=== PATIENT | male | born 1950 | race Two or more races ===

== ENCOUNTER 2024-08-20 09:31 | Inpatient (IN) | payer MEDICAID, MEDICARE, OTHER ==
[~2024-08-20] VITALS: Ht 185.4 cm; Wt 97.3 kg
[2024-08-20] VITALS (23 sets, daily range): BP systolic 87–134; BP diastolic 46–77; PULSE 68–89; RESP 13–27; TEMP 97.8–98.6; O2SAT 95–100
--- NOTE | 2024-08-20 10:01 | ED.PDOC ---
History of Present Illness HPI Comments 66-year-old male brought in by ambulance prior medical history of anemia in the chief complaint of generally weakness. EMS report that the patient has weakness for one week with shortness a breath, and whenever the patient walks he feels fatigued. On scene the patient had her blood sugar of 120 with a sat of 95% room air. Denies chills, fever, N/V/D, CP. No other associated symptoms, modifiers, recent injuries or sick contacts present at this time. Time Seen by MD: 09:35 Reviewed Notes: Nurses Notes, Tax Services Manager Notes, Medications, Allergies Allergies: Coded Allergies: NO KNOWN ALLERGIES (Unverified , 08/20/24) Information Source: Patient, Emergency Med Personnel Mode of Arrival: EMS Severity: Moderate Timing: Days Duration: Since onset, Days Prehospital treatment: None Past Medical History PAST MEDICAL HISTORY: Anemia Surgical History: Denies all surgeries Family History Family History: Reviewed,noncontributory to illness, Unknown Social History Smoker: Non-Smoker Alcohol: Denies ETOH Use Drugs: Denies Drug Use Lives In: Home Constitutional: reports: fatigue, weakness; denies: chills, diaphoresis, fever, malaise, sweats, others EENTM: denies: blurred vision, double vision, ear bleeding, ear discharge, ear drainage, ear pain, ear ringing, eye pain, eye redness, hearing loss, mouth pain, mouth swelling, nasal discharge, nose bleeding, nose congestion, nose pain, photophobia, tearing, throat pain, throat swelling, voice changes, others Respiratory: denies: cough, hemoptysis, orthopnea, SOB at rest, shortness of breath, SOB with excertion, stridor, wheezing, others Cardiovascular: denies: chest pain, dizzy spells, diaphoresis, Dyspnea on exertion, edema, irregular heart beat, left arm pain, lightheadedness, palpitations, PND, syncope, others Gastrointestinal: denies: abdomen distended, abdominal pain, blood streaked bowels, constipated, diarrhea, dysphagia, difficulty swallowing, hematemesis, melena, nausea, poor appetite, poor fluid intake, rectal bleeding, rectal pain, vomiting, others Genitourinary: denies: burning, dysuria, flank pain, frequency, hematuria, incontinence, penile discharge, penile sore, pain, testicle pain, testicle s welling, urgency, others Neurological: denies: dizziness, fainting, headache, left sided numbness, left sided weakness, numbness, paresthesia, pre-existing deficit, right sided numbness, right sided weakness, seizure, speech problems, tingling, tremors, weakness, others Musculoskeletal: denies: back pain, gout, joint pain, joint swelling, muscle pain, muscle stiffness, neck pain, others Integumetry: denies: bruises, change in color, change in hair/nails, dryness, laceration, lesions, lumps, rash, wounds, others Allergic/Immunocompromised: denies: Difficulty Healing, Frequent Infections, Hives, Itching, others Hematologic/Lymphatic: denies: anemia, blood clots, easy bleeding, easy bruising, swollen glands, others Endocrine: denies: excessive hunger, excessive sweating, excessive thirst, excessive urination, flushing, intolerance to cold, intolerance to heat, unexplained weight gain, unexplained weight loss, others Psychiatric: denies: anxiety, bipolar disorder, depression, hopeless, panic disorder, schizophrenia, sleepless, suicidal, others All Other Systems: Reviewed and Negative Physical Exam General Appearance: Moderate Distress, Normal HEENT: Normal ENT Inspection, Pharynx Normal, TMs Normal Neck: Full Range of Motion, Non-Tender, Normal, Normal Inspection Respiratory: Chest Non-Tender, Lungs Clear, No Accessory Muscle Use, No Respiratory Distress, Normal Breath Sounds Cardiovascular: No Edema, No JVD, No Murmur, No Gallop, Normal Peripheral Pulses, Regular Rate/Rhythm Breast Exam: Deferred Gastrointestinal: No Organomegaly, Non Tender, No Pulsatile Mass, Normal Bowel Sounds, Soft Genitalia: Deferred Pelvic: Deferred Rectal: Deferred Extremities: No calf tenderness, Normal capillary refill, Normal inspection, Normal range of motion, Non-tender, No pedal edema Musculoskeletal : Apperance: Normal Neurologic: Alert, rigging man II-XII nml as Tested, No Motor Deficits, Normal Affect, Normal Mood, No Sensory Deficits Cerebellar Function: NOT DONE Reflexes: NOT DONE Skin: Dry, Pallor, Warm Peripheral Pulses: 3+ Radial (R), 3+ Radial (L) Lymphatic: No Adenopathy Was a procedure done? Was a procedure done?: No EKG EKG : Pulse Rate (adult): 68 Brogan: Normal Cardiac Rhythm: NSR Block: None Hypertrophy: None ST: Normal Differential Dx Considerations may include: Anemia Electrolyte imbalance X-Ray, Labs, Meds, VS Vital Signs Date Time Temp Pulse Resp B/P (MAP) Pulse Ox O2 Delivery O2 Flow Rate FiO2 08/20/24 11:00 72 20 100 Room Air* 0 21 08/20/24 11:00 98.0 74 16 91/41 (58) 100 98.0 08/20/24 10:02 68 08/20/24 09:50 68 08/20/24 09:40 97.9 68 16 113/75 (88) 95 97.9 Lab Test 08/20/24 10:05 Range/Units White Blood Count 15.5 H 4.4-10.8 10^3/uL Red Blood Count 1.91 L 4.5-5.90 10^6/uL Hemoglobin 5.6 *L 13.5-17.5 g/dL Hematocrit 17.5 L 41.0-53.0 % Mean Corpuscular Volume 91.6 80.0-100.0 fL Mean Corpuscular Hemoglobin 29.3 28.0-32.0 pg Mean Corpuscular Hemoglobin Concent 32.0 32.0-36.0 g/dL Red Cell Distribution Width 22.0 H 11.8-14.3 % Platelet Count 366 140-450 10^3/uL Mean Platelet Volume 8.1 6.9-10.8 fL Neutrophils (%) (Auto) 37.0-80.0 % Lymphocytes (%) (Auto) 10.0-50.0 % Monocytes (%) (Auto) 0.0-12.0 % Basophils (%) (Auto) 0.0-2.0 % Neutrophils # (Auto) 1.6-8.6 10 ^3/uL Lymphocytes # (Auto) 0.4-5.4 10 ^3/uL Monocytes # (Auto) 0-1.3 10 ^3/uL Differential Total Cells Counted 100.0 100 Neutrophils % (Manual) 77 37.0-80.0 Band Neutrophils % (Manual) 5 Lymphocytes % (Manual) 10 10.0-50.0 Monocytes % (Manual) 1 0-12 Eosinophils % (Manual) 5 0-7 Basophils % (Manual) 0 0.0-2.0 Metamyelocytes % (manual) 1 Myelocytes % (Manual) 1 Promyelocytes % (Manual) 0 Blast Cells % (Manual) 0 Reactive Lymphocytes 0 Platelet Estimate Adequate Large Platelets Few Anisocytosis (manual) Slight Microcytosis Slight Ovalocytes Few Sodium Level 138 136-145 mmol/L Potassium Level 4.6 3.5-5.1 mmol/L Chloride Level 105 98-107 mmol/L Carbon Dioxide Level 27 20-31 mmol/L Anion Gap 6 5-15 Blood Urea Nitrogen 28 H 9-23 mg/dL Creatinine 1.96 H 0.700-1.30 mg/dL Glomerular Filtration Rate Calc 35 >90 mL/min BUN/Creatinine Ratio 14.3 10.0-20.0 Serum Glucose 104 74-106 mg/dL Calcium Level 8.5 L 8.7-10.4 mg/dL Troponin I High Sensitivity 15 </=54 ng/L Patient alert. Vitals stable. He is pale in color. Answering questions. Moving all extremities. Hemoglobin is low. WBC slightly elevated. Possible pneumonitis. Possible dehydration. Cardiac marker within normal limits. Establish intravenous access. Was given blood transfusion. Explained to the patient. Continue monitoring. Denies GI bleed. GI consultation. [place] [id number] Ph: [phone] DIAGNOSTIC IMAGING Diagnostic Imaging Report : [id number] Signed PATIENT: KESHAV GALDAMEZ ACCT: [id number] UNIT: [id number] : 1950 LOC: ER ROOM / BED: / AGE / SEX: 74 / M ADM STATUS: REG ER SERVICE [id number] ORDERING PHYSICIAN: CATIE RM MD PROCEDURE(s): CXRP - CHEST PORTABLE REASON: sob ORDER NUMBER(s): [id number], ACCESSION NUMBER(s): [id number] XY CHEST PORTABLE, HISTORY: sob COMPARISON: None None TECHNICAL DATA: 1 view of the chest was obtained. FINDINGS: Lines and tubes: None Cardiomediastinal silhouette: enlarged Pulmonary vasculature: prominent Lung expansion: normal Lung airspace: normal Lung interstitium: prominent Pleura: normal Pneumothorax: no Bones: Unremarkable Other: no IMPRESSION: Cardiomegaly with pulmonary vascular congestion. ATED BY: DAVID WOOTEN MD DICTATED DATE/TIME: 08/20/24 1036 SIGNED BY: DAVID WOOTEN MD SIGNED DATE/TIME: 08/20/24 1036 CC: Time of 1ST Reevaluation: 10:05 Reevaluation 1ST: Unchanged Patient Education/Counseling: Diagnosis, Treatment, Prognosis Family Education/Counseling: No Family Present Departure 1 Departure Time of Disposition: 11:05 Impression: Primary Impression: Severe anemia Additional Impression: GI bleed Qualified Codes: K92.2 - Gastrointestinal hemorrhage, unspecified Disposition: ADMITTED INPATIENT Admit to: Med Surg Condition: Guarded Critical Care Note Critical Care Time?: Yes (90 min-critical care time only) Critical care comment: Severe anemia requiring blood transfusion Stability Stability form required: No Heart Score Heart Score: Heart Score Response (Comments) Value History N/A 0 EKG N/A 0 Age N/A 0 Risk Factors N/A 0 Troponin N/A 0 Total 0 I personally scribed for CATIE RM MD ([email or web address]) on 08/20/24 at 10:01. Electronically submitted by Nakul Ortiz ([facility]). I personally scribed for CATIE RM MD ([email or web address]) on 08/20/24 at 10:02. Electronically submitted by Nakul Ortiz ([facility]). I personally scribed for CATIE RM MD ([email or web address]) on 08/20/24 at 11:37. Electronically submitted by Nakul Ortiz ([email or web address]). CATIE RM MD Aug 20, 2024 10:01
[2024-08-20 10:35] LABS: Hematocrit 17.5 % (41.0-53.0); Mean Corpuscular Hemoglobin 29.3 pg (28.0-32.0); Mean Corpuscular Volume 91.6 fL (80.0-100.0); Platelet Count (auto) 366 10^3/uL (140-450); Red Blood Cells 1.91 10^6/uL (4.5-5.90); White Blood Cell 15.5 10^3/uL (4.4-10.8)
--- NOTE | 2024-08-20 10:38 | DVH ---
XY CHEST PORTABLE, HISTORY: sob COMPARISON: None None TECHNICAL DATA: 1 view of the chest was obtained. FINDINGS: Lines and tubes: None Cardiomediastinal silhouette: enlarged Pulmonary vasculature: prominent Lung expansion: normal Lung airspace: normal Lung interstitium: prominent Pleura: normal Pneumothorax: no Bones: Unremarkable Other: no IMPRESSION: Cardiomegaly with pulmonary vascular congestion.
[2024-08-20 10:39] LABS: Chloride 105 mmol/L (98-107); Potassium 4.6 mmol/L (3.5-5.1); Sodium 138 mmol/L (136-145)
[2024-08-20 10:40] LABS: Anion Gap 6 (5-15); Carbon Dioxide 27 mmol/L (20-31)
[2024-08-20 10:41] LABS: Calcium 8.5 mg/dL (8.7-10.4)
[2024-08-20 10:45] LABS: BUN/Creatinine Ratio 14.3 (10.0-20.0); Glucose 104 mg/dL (74-106)
[2024-08-20 10:46] LABS: Hemoglobin 5.6 g/dL (13.5-17.5)
[2024-08-20 10:47] LABS: Basophils % (manual) 0 (0.0-2.0); Blast Cells 0; Blood Urea Nitrogen 28 mg/dL (9-23); Promyelocytes % 0; Reactive Lymphocytes 0
[2024-08-20 11:08] LABS: Band Neutrophils % (manual) 5; Eosinophils % (manual) 5 (0-7); Lymphocytes % (manual) 10 (10.0-50.0); Metamyelocytes % 1; Monocytes % (manual) 1 (0-12); Myelocytes % 1
[2024-08-20 11:09] LABS: Anisocytosis Slight; Ovalocytes FEW
[2024-08-20 11:10] LABS: Large Platelets FEW; Platelet Estimate Adequate
--- NOTE | 2024-08-20 11:57 | ECG ---
[facility] Test Date: 2024-08-20 Test Time: 09:50:09 Pat Name: RENAE GALDAMEZ Department: ED Room: [facility] Gender: M Chief Ophthalmic Technician: LEONARDO : 1950 Requested By: CATIE RM Order Number: [id number] Reading MD: Prateek Torres Measurements Intervals [place] Rate: 68 P: 51 VA: 198 QRS: 36 QRSD: 102 T: 103 QT: 503 QTc: 536 Interpretive Statements Sinus rhythm Nonspecific T abnormalities, lateral leads Prolonged QT interval Electronically Signed On 08-22-2024 14:51:32 PDT by Prateek Torres Please click the below link to view image of tracing.
[2024-08-20] MEDS ORDERED: NITROGLYCERIN 0.4 MG SL TAB SL PRN (13:30)
[2024-08-20] MEDS ORDERED: MORPHINE SULFATE INJ 2 MG/ml SYRG IV PRN (13:30)
[2024-08-20] MEDS ORDERED: ONDANSETRON HCL 4 MG/2 ML VIAL IV PRN (13:30)
--- NOTE | 2024-08-20 14:13 | DVHHP2 ---
History of Present Illness Reason for Visit: Generalized weakness History of Present Illness Unfried, Josue Garcia is a 74-year-old male with past medical history of hypertension, BPH, chronic kidney disease, and hard of hearing who came in for generalized weakness. Patient states he went to the [place] and had labs completed a few weeks ago. He received a phone call a couple weeks ago and was told his hemoglobin was low and to go to the hospital. He states he was not feeling bad at that time so he did not go. He did not want to drive all the way to the [place] when he was feeling fine. Then he states this last week he started feeling weaker, and getting short of breath prompting him to come to the hospital. Cardiovascular: HTN Renal/: Chronic renal insuff, Benign prostatic enlarg. Past Surgical History: Other ( Bowel surgery with colostomy, then reversal, bilateral mastectomy) Smoke: Quit (1 month ago) ALCOHOL: rare Drugs: None Lives: with Family Domestic Violence: Neg Review of Systems Constitutional: Yes: Weakness, Malaise; No: Fever, Chills, Sweats, Other Eyes: No: Pain, Vision change, Conjunctivae inflammation, Eyelid inflammation, Other, Redness ENT: No: Ear pain, Ear discharge, Nose pain, Nose discharge, Nose congestion, Mouth pain, Mouth swelling, Throat pain, Throat swelling, Other Respiratory: Shortness of breath, SOB with excertion; No: Cough, Dry, Wheezing, Hemoptysis, Pleuritic Pain, Sputum, Wheezing, Other Cardiovascular: No: Chest Pain, Palpitations, Orthopnea, Paroxysmal Noc. Dyspnea, Edema, Lt Headedness, Other Gastrointestinal: No: Nausea, Vomiting, Abdominal Pain, Diarrhea, Constipation, Melena, Hematochezia, Other Genitourinary: No Dysuria, No Frequency, No Incontinence, No Hematuria, No Retention, No Other Musculoskeletal: No: other, neck pain, shoulder pain, arm pain, back pain, hand pain, leg pain, foot pain Skin: No: Rash, Lesions, Jaundice, Bruising, Other Neurological: No: Weakness, Numbness, Incoordination, Change in speech, Confusion, Seizures, Other Allergies: Coded Allergies: NO KNOWN ALLERGIES (Unverified , 08/20/24) Exam Vital Signs Vital Signs Date Time Temp Pulse Resp B/P (MAP) Pulse Ox O2 Delivery O2 Flow Rate FiO2 08/20/24 12:23 97.9 70 14 87/46 97.9 08/20/24 11:00 100 Room Air* 0 21 General Appearance: Alert, Oriented X3, Cooperative, mild distress, Other (weakness) HEENT: Atraumatic, PERRLA, Other (dry mucous membr) Respiratory: Clear to auscultation, Normal air movement, Other (short of breath at rest and with activity) Cardiovascular: Regular rate, Normal S1, Normal S2 Abdominal: Normal bowel sounds, Soft, No tenderness, No hepatospenomegaly Extremities: No clubbing, No cyanosis, No edema, Normal pulses Skin: No rashes, No breakdown, No significant lesion Neuro: Normal gait, Normal speech Psych/Mental Status: Mental status NL, Mood NL Labs/Xrays Labs Test 08/20/24 10:05 Range/Units White Blood Count 15.5 H 4.4-10.8 10^3/uL Red Blood Count 1.91 L 4.5-5.90 10^6/uL Hemoglobin 5.6 *L 13.5-17.5 g/dL Hematocrit 17.5 L 41.0-53.0 % Mean Corpuscular Volume 91.6 80.0-100.0 fL Mean Corpuscular Hemoglobin 29.3 28.0-32.0 pg Mean Corpuscular Hemoglobin Concent 32.0 32.0-36.0 g/dL Red Cell Distribution Width 22.0 H 11.8-14.3 % Platelet Count 366 140-450 10^3/uL Mean Platelet Volume 8.1 6.9-10.8 fL Neutrophils (%) (Auto) 37.0-80.0 % Lymphocytes (%) (Auto) 10.0-50.0 % Monocytes (%) (Auto) 0.0-12.0 % Basophils (%) (Auto) 0.0-2.0 % Neutrophils # (Auto) 1.6-8.6 10 ^3/uL Lymphocytes # (Auto) 0.4-5.4 10 ^3/uL Monocytes # (Auto) 0-1.3 10 ^3/uL Differential Total Cells Counted 100.0 100 Neutrophils % (Manual) 77 37.0-80.0 Band Neutrophils % (Manual) 5 Lymphocytes % (Manual) 10 10.0-50.0 Monocytes % (Manual) 1 0-12 Eosinophils % (Manual) 5 0-7 Basophils % (Manual) 0 0.0-2.0 Metamyelocytes % (manual) 1 Myelocytes % (Manual) 1 Promyelocytes % (Manual) 0 Blast Cells % (Manual) 0 Reactive Lymphocytes 0 Platelet Estimate Adequate Large Platelets Few Anisocytosis (manual) Slight Microcytosis Slight Ovalocytes Few Sodium Level 138 136-145 mmol/L Potassium Level 4.6 3.5-5.1 mmol/L Chloride Level 105 98-107 mmol/L Carbon Dioxide Level 27 20-31 mmol/L Anion Gap 6 5-15 Blood Urea Nitrogen 28 H 9-23 mg/dL Creatinine 1.96 H 0.700-1.30 mg/dL Glomerular Filtration Rate Calc 35 >90 mL/min BUN/Creatinine Ratio 14.3 10.0-20.0 Serum Glucose 104 74-106 mg/dL Calcium Level 8.5 L 8.7-10.4 mg/dL Troponin I High Sensitivity 15 </=54 ng/L XY CHEST PORTABLE, FINDINGS: Lines and tubes: None Cardiomediastinal silhouette: enlarged Pulmonary vasculature: prominent Lung expansion: normal Lung airspace: normal Lung interstitium: prominent Pleura: normal Pneumothorax: no Bones: Unremarkable Other: no IMPRESSION: Cardiomegaly with pulmonary vascular congestion. Assessment/Plan Assessment/Plan Assessment: Severe anemia, Possible GI bleed, Hypotension, Chronic renal insufficiency, Plan: Admit to Med-Surg, GI consult, Send stool for occult blood, Transfuse 2 units PRBC, Manage/Monitor H&H closely, IV Lasix x 1 after first unit of PRBC, Breathing treatments as needed, Iron panel in am, Home BP medications held due to hypotension, Plan discussed with: Patient My Orders Orders - RAFAL LEARY Procedure Category Date Status Time Admit ADMIT 08/20/24 Transmitted 13:29 Code Status CODE 08/20/24 Transmitted 13:29 Hydrocodone-Acet PHA 08/20/24 Transmitted 5/325mg Tab ([place] 13:30 Ondansetron Hcl PHA 08/20/24 Transmitted (Zofran) 13:30 Complete Blood Count LAB 08/21/24 Verified 04:00 Comprehensive LAB 08/21/24 Verified Metabolic Panel 04:00 Condition: Serious SRAVANTHI 08/20/24 Transmitted 13:29 Acetaminophen Tablet PHA 08/20/24 Transmitted (Tylenol Tablet) 13:30 Clear Liq Diet DIET 08/20/24 Transmitted Lunch Nitroglycerin PHA 08/20/24 Transmitted Sublingual (Ntrostat 13:30 Morphine Sulfate PHA 08/20/24 Transmitted Injection 13:30 Stat Ekg For Chest SRAVANTHI 08/20/24 Transmitted Pain 13:29 Notify Md Of Changes [facility] 08/20/24 Transmitted From Base 13:29 Beck Tender For [facility] 08/20/24 Transmitted 24 Hours 13:29 Emergency Dysrhythmia [facility] 08/20/24 Transmitted Protocol 13:29 Rhythm Strips Once [facility] 08/20/24 Transmitted Every Shift 13:29 Oxygen By Nasal RT 08/20/24 Transmitted Cannula 13:29 Stool Occult Blood LAB 08/20/24 Transmitted 13:29 * Gi Dvh Package Drier CONS 08/20/24 Transmitted 13:29 Date of Service: Aug 20, 2024 Billing Provider: RAFAL LEARY Common Visit Codes: [id number] INP/OBS CARE (HIGH) RAFAL LEARY Aug 20, 2024 14:13
[2024-08-20] MEDS: HYDROcodone-ACET 5/325MG TAB PO PRN (15:30)
[2024-08-20] MEDS: FUROSEMIDE 40 MG/4 ML VIAL IV ONE (15:55)
[2024-08-20 17:08] LABS: Urine Bacteria None Seen /hpf (None Seen)
[2024-08-20 17:17] LABS: Urine Blood 2+ /uL (Negative); Urine Clarity Ex.Turbid (Clear); Urine Color Dark-Brown (Yellow); Urine Mucus FEW (None Seen); Urine Protein, UAD 3+ (Negative); Urine Specific Gravity 1.014 (1.001-1.035); Urine Squamous Epithelial Cell None Seen /hpf (<5); Urine Urobilinogen Normal (Negative); Urine WBC 3653 /HPF (0-3); Urine WBC Clumps PRESENT /hpf (None Seen)
[2024-08-20] MEDS: cefTRIAXone 1GM/50ML D5W 50 ML IV ONE (18:28)
[2024-08-20] MEDS: IPRATROPIUM BROM 0.5 MG/2.5ML INH SOL NEB PRN (19:45)
[2024-08-20] MEDS: ALBUTEROL SULF 2.5 MG/0.5ML(0.5%) NEB SOLN NEB PRN (19:45)
[2024-08-20 22:22] LABS: Hematocrit 26.2 % (41.0-53.0); Hemoglobin 8.6 g/dL (13.5-17.5)
[2024-08-20] MEDS ORDERED: METO25TA5 PO (23:14)
[2024-08-20] MEDS ORDERED: AML5T PO (23:14)
[2024-08-21] VITALS (16 sets, daily range): BP systolic 137–154; BP diastolic 86–97; PULSE 63–89; RESP 16–20; TEMP 96.5–97.9; O2SAT 94–100
[2024-08-21 07:35] LABS: Hematocrit 26.8 % (41.0-53.0); Hemoglobin 8.7 g/dL (13.5-17.5); Mean Corpuscular Hemoglobin 29.2 pg (28.0-32.0); Mean Corpuscular Hgb Conc. 32.5 g/dL (32.0-36.0); Mean Corpuscular Volume 89.7 fL (80.0-100.0); Platelet Count (auto) 381 10^3/uL (140-450); Red Blood Cells 2.99 10^6/uL (4.5-5.90); Red Cell Distribution Width 18.9 % (11.8-14.3); White Blood Cell 20.9 10^3/uL (4.4-10.8)
[2024-08-21 07:43] LABS: Basophils % (manual) 0 (0.0-2.0); Blast Cells 0; Metamyelocytes % 0; Myelocytes % 0; Promyelocytes % 0; Reactive Lymphocytes 0
[2024-08-21 07:50] LABS: Alanine Aminotransferase 36 U/L (7-40); Albumin 4.2 g/dL (3.2-4.8); Anion Gap 10 (5-15); Aspartate Aminotransferase 35 U/L (13-40); BUN/Creatinine Ratio 13.9 (10.0-20.0); Calcium 8.7 mg/dL (8.7-10.4); Carbon Dioxide 24 mmol/L (20-31); Chloride 105 mmol/L (98-107); Potassium 4.2 mmol/L (3.5-5.1); Sodium 139 mmol/L (136-145); Total Protein 6.6 g/dL (5.7-8.2)
[2024-08-21 07:55] LABS: Bilirubin, Total 1.9 mg/dL (0.2-1.0); Blood Urea Nitrogen 30 mg/dL (9-23)
[2024-08-21 08:04] LABS: Alkaline Phosphatase 64 U/L (46-116)
[2024-08-21 08:23] LABS: Eosinophils % (manual) 1 (0-7)
[2024-08-21 08:24] LABS: Platelet Estimate Adequate
[2024-08-21] MEDS: cefTRIAXone 1GM/50ML D5W 50 ML IV SCH (08:29)
[2024-08-21] MEDS: ACETAMINOPHEN 325 MG TAB PO PRN (08:29)
[2024-08-21 08:45] LABS: Glucose 108 mg/dL (74-106)
[2024-08-21 09:54] LABS: Band Neutrophils % (manual) 0
[2024-08-21 09:55] LABS: Lymphocytes % (manual) 11 (10.0-50.0); Monocytes % (manual) 2 (0-12)
--- NOTE | 2024-08-21 14:17 | DVHPN2 ---
Reviewed: Care Plan, H&P, Labs, Medications, Previous Orders, Radiology Changes from previous H/P or p: No Changes Eyes: No Pain, No Vision change, No Conjunctivae inflammation, No Eyelid inflammation, No Other, No Redness ENT: No Ear pain, No Ear discharge, No Nose pain, No Nose discharge, No Nose congestion, No Mouth pain, No Mouth swelling, No Throat pain, No Throat swelling, No Other Cardiovascular: No Chest Pain, No Palpitations, No Orthopnea, No Paroxysmal Noc. Dyspnea, No Edema, No Lt Headedness, No Other Respiratory: No Cough, No Dry; Shortness of breath, SOB with excertion; No Wheezing, No Hemoptysis, No Pleuritic Pain, No Sputum, No Other Gastrointestinal: No Nausea, No Vomiting, No Abdominal Pain, No Diarrhea, No Constipation, No Melena, No Hematochezia, No Other Genitourinary: No Dysuria, No Frequency, No Incontinence, No Hematuria, No Retention, No Other Musculoskeletal: No other, No neck pain, No shoulder pain, No arm pain, No back pain, No hand pain, No leg pain, No foot pain Skin: No Rash, No Lesions, No Jaundice, No Bruising, No Other Objective Vitals Vital Signs Date Time Temp Pulse Resp B/P (MAP) Pulse Ox O2 Delivery O2 Flow Rate FiO2 08/21/24 12:32 96.6 83 19 143/91 (108) 97 96.6 08/21/24 09:52 Nasal Cannula* 3 32 Intake/Output Intake and Output 08/21/24 07:00 Intake Total 3040 ml Output Total 1250 ml Balance 1790 ml Intake Oral 1240 ml Blood Product 1800 ml Output Urine Total 1250 ml # Voids 1 # Bowel Movements 1 Medications Current Medications Medications Dose Ordered Sig/[place] Route Start Time Stop Time Status Last Admin Dose Admin Acetaminophen/ Hydrocodone Bitart 1 tab Q4HP PRN PO 08/20/24 13:30 08/20/24 15:30 1 TAB Ondansetron HCl 4 mg Q4HP PRN IV 08/20/24 13:30 Acetaminophen 650 mg Q6HP PRN PO 08/20/24 13:30 08/21/24 08:29 650 MG Nitroglycerin 0.4 mg Q5MINP PRN SL 08/20/24 13:30 Morphine Sulfate 2 mg Q30M PRN IV 08/20/24 13:30 Albuterol 2.5 mg Q4HPRN PRN NEB 08/20/24 13:45 08/21/24 08:29 2.5 MG Ipratropium Evans 0.5 mg Q4HPRN PRN NEB 08/20/24 13:45 08/21/24 08:29 0.5 MG Ceftriaxone Sodium 50 ml @ 100 mls/hr DAILY@09 IV 08/21/24 09:00 08/21/24 08:29 100 MLS/HR Laboratory Results Laboratory Tests 08/21/24 07:11 Chemistry Test 08/21/24 07:11 Albumin 4.2 g/dL (3.2-4.8) Calcium Level 8.7 mg/dL (8.7-10.4) Total Protein 6.6 g/dL (5.7-8.2) LFT Test 08/21/24 07:11 Alanine Aminotransferase (ALT) 36 U/L (7-40) Alkaline Phosphatase 64 U/L (46-116) Aspartate Amino Transferase (AST) 35 U/L (13-40) Total Bilirubin 1.9 mg/dL (0.2-1.0) H Urinalysis Test 08/20/24 17:00 Urine Color Dark-brown (Yellow) Urine Clarity Ex.turbid (Clear) Urine pH 6.0 (5.0-9.0) Urine Specific [place] 1.014 (1.001-1.035) Urine Protein 3+ (Negative) H Urine Ketones Negative (Negative) Urine Blood 2+ /uL (Negative) H Urine Nitrite Negative (Negative) Urine Bilirubin Negative (Negative) Urine Urobilinogen Normal mg/dL (Negative) Urine Leukocyte Esterase 3+ /uL (Negative) Urine RBC 23 /hpf (0 - 3) Urine WBC Clumps Present /hpf (None Seen) Urine Microscopic WBC 3653 /HPF (0-3) H Urine Squamous Epithelial Cells None seen /hpf (<5) Urine Bacteria None seen /hpf (None Seen) Urine Mucus Few (None Seen) Urine Glucose Normal mg/dL (Normal) Microbiology Microbiology Date/Time Source Procedure Growth Status 08/20/24 17:00 Urine - Catheterized Urine Culture - Preliminary Resulted Labs and/or images reviewed: Labs reviewed by me, Image(s) reviewed by me Assessment/Plan Assessment/Plan Acute generalized weakness Septic shock WBC 20 K secondary to urinary tract infection: Blood cultures urine cultures Rocephin Severe symptomatic Anemia hemoglobin 5.6 improved to 8.7 after 3 units RBC transfusion GI consult for Dr. Lindsey Ortega to rule out GI causes for anemia BPH: CT abdomen pelvis without contrast Hypotension Chronic kidney disease Moderate malnutrition Time spent 70 minutes Advanced care planning time 20 minutes Patient is full code Plan discussed with: Patient My Orders Orders - MAGDIEL DAO MD Procedure Category Date Status Time Blood Culture LISANDRO 08/21/24 Logged 14:02 Ct Ab Pel Wo Con-No CT 08/21/24 Logged Oral Or Iv 14:02 Date of Service: Aug 21, 2024 Billing Provider: MAGDIEL DAO MD Common Visit Codes: [id number] INP/OBS CARE(HIGH) MAGDIEL DAO MD Aug 21, 2024 14:17
--- NOTE | 2024-08-21 15:28 | DVH ---
Exam: CT CT AB PEL WO CON-NO ORAL OR IV History: Sepsis BPH Comparison Study: 03/11/2024 report only TECHNIQUE: Multidetector CT of the abdomen and pelvis without IV contrast. Axial, coronal and sagitta l multiplanar reformats were obtained from the axial data set by the technologist. Radiation Dose Information: CT Dose: CTDI volume is 22.51 mGy. Dose-length product is 1254.12 mGy*cm FINDINGS: Moderate right with small to moderate left-sided pleural effusions and associated atelectasis. Ground -glass opacities of the lung bases with patchy left basilar solid opacities. Mild cardiomegaly with t race pericardial effusion. Liver, spleen, gallbladder, pancreas and adrenal glands are unremarkable. There is low lying right kidney positioned over the right lower abdominal quadrant/ upper pelvis and otherwise unremarkable. Severe Atrophy of the left kidney. Mild left hydroureteronephrosis. There is calculus extending from the lower pole of the left kidney to the left renal pelvis measuring about 2 .3 x 1 x 2.7 cm. 5.4 cm left renal cortical cyst. Additional left renal lower pole exophytic 1.7 cm c yst. Mild fat stranding adjacent to the left proximal ureter. No ureteral calculus is noted. Urinary bladder is unremarkable. Prostate appears enlarged measuring 5.1 x 5.1 x 4.5 cm. Stomach is unremarkable. Small bowel loops unremarkable. Appendix is not definitely visualized. Nona fact limits evaluation of the bowel loops. There appears to be small to moderate amount of fecal mate rial within the colon. Postsurgical changes of the rectosigmoid. The large bowel is not adequately assessed. Subtle rectal wall thickening. No evidence of intraperitoneal free air or free fluid. Mild nonspecific fat stranding adjacent to the right hepatic lobe. No evidence of aortic aneurysm. Mild atherosclerotic calcification of the aorta and bilateral iliacs . Slightly prominent aortocaval lymph node measuring up to 1.1 cm additional shotty retroperitoneal lym ph nodes. Postsurgical changes ventral lower abdominal wall. Small fat containing ventral lower abdominal herni a with associated fat stranding adjacent focal skin thickening Small fat containing bilateral inguina l hernias. Minimal body wall edema. Multilevel anterior bridging osteophytes of the lower thoracic a nd lumbar spine. No evidence of acute bony abnormalities. Sclerotic focus of the right proximal femur which may represent a bone island. Motion artifact limits evaluation for rib fractures. IMPRESSION: Severe atrophy of the left kidney with calculus extending from the lower pole of the left kidney into the left renal pelvis. Mild left hydroureteronephrosis with mild fat stranding adjacent to the left proximal ureter. Correl ate for possible infectious process. Enlarged prostate recommend correlation with PSA. Additional nonacute findings as above.
--- NOTE | 2024-08-21 23:04 | DVHINCON2 ---
Date of service: Aug 21, 2024 Referring Physician Yaniv Simons Reason for Consultation Anemia History of Present Illness Unfried, Josue Garcia is a 74-year-old male with past medical history of hypertension, BPH, chronic kidney disease, and hard of hearing who came in for generalized weakness. Patient states he went to the [place] and had labs completed a few weeks ago. He received a phone call a couple weeks ago and was told his he ron was low and to go to the hospital. He states he was not feeling bad at that time so he did not go. He did not want to drive all the way to the [place] when he was feeling fine. Then he states this last week he started feeling weaker, and getting short of breath prompting him to come to the hospital. Patient was seen at bed side and at this time has moderate shortness of breath which he attributes possibly to chronic lung condition. Patient denies nausea vomiting hematemesis bright red blood per rectum or melena. At this time the patient did not want to talk to me and stated he was very tired and would like to rest. He was somewhat agitated and rude and also was not giving a clear-cut history. Patient stated he has had an EGD and colonoscopy but it was several years ago Past Medical History Cardiovascular: HTN Renal/: Chronic renal insuff, Benign prostatic enlarg. Past Surgical History Past Surgical History: Other ( Bowel surgery with colostomy, then reversal, bilateral mastectomy) Family History: Patient reports no known family medical history. Social History Smoke: Quit (1 month ago) ALCOHOL: rare Drugs: None Allergies: Coded Allergies: NO KNOWN ALLERGIES (Unverified , 08/20/24) Home Meds Reported Medications Amlodipine Besylate (NORVASC TABLET) 5 Mg Tb, 1 TAB PO DAILY, #30 TAB 5 Refills 08/20/24 Metoprolol Tartrate (Metoprolol Tartrate) 25 Mg Tab, 25 MG PO, TAB 08/20/24 Current Medications Current Medications Medications (Trade) Dose Ordered Sig/Gaston Route PRN Reason Start Time Stop Time Status Last Admin Ceftriaxone Sodium 50 ml @ 100 mls/hr DAILY@09 IV 08/21/24 09:00 08/21/24 08:29 Vital Signs Vital Signs Date Time Temp Pulse Resp B/P (MAP) Pulse Ox O2 Delivery O2 Flow Rate FiO2 08/21/24 21:00 97.9 89 19 142/86 (104) 95 97.9 08/21/24 20:00 Nasal Cannula* 3 32 Physical Exam General Appearance: Alert, Oriented X3, Cooperative, mild distress, Other (weakness) HEENT: Atraumatic, PERRLA, Other (dry mucous membr) Respiratory: Clear to auscultation, Normal air movement, Other (short of breath at rest and with activity) Cardiovascular: Regular rate, Normal S1, Normal S2 Abdominal: Normal bowel sounds, Soft, No tenderness, No hepatospenomegaly Extremities: No clubbing, No cyanosis, No edema, Normal pulses Skin: No rashes, No breakdown, No significant lesion Neuro: Normal gait, Normal speech Psych/Mental Status: Mental status NL, Mood NL Labs/Diagnostic Data Labs Test 08/21/24 07:11 08/20/24 23:11 08/20/24 17:00 08/20/24 10:05 Range/Units White Blood Count 20.9 #H 4.4-10.8 10^3/uL Red Blood Count 2.99 L 4.5-5.90 10^6/uL Hemoglobin 8.7 L 13.5-17.5 g/dL Hematocrit 26.8 L 41.0-53.0 % Mean Corpuscular Volume 89.7 80.0-100.0 fL Mean Corpuscular Hemoglobin 29.2 28.0-32.0 pg Mean Corpuscular Hemoglobin Concent 32.5 32.0-36.0 g/dL Red Cell Distribution Width 18.9 H 11.8-14.3 % Platelet Count 381 140-450 10^3/uL Mean Platelet Volume 8.2 6.9-10.8 fL Neutrophils (%) (Auto) 37.0-80.0 % Lymphocytes (%) (Auto) 10.0-50.0 % Monocytes (%) (Auto) 0.0-12.0 % Basophils (%) (Auto) 0.0-2.0 % Neutrophils # (Auto) 1.6-8.6 10 ^3/uL Lymphocytes # (Auto) 0.4-5.4 10 ^3/uL Monocytes # (Auto) 0-1.3 10 ^3/uL Differential Total Cells Counted 100.0 100 Neutrophils % (Manual) 86 H 37.0-80.0 Band Neutrophils % (Manual) 0 Lymphocytes % (Manual) 11 10.0-50.0 Monocytes % (Manual) 2 0-12 Eosinophils % (Manual) 1 0-7 Basophils % (Manual) 0 0.0-2.0 Metamyelocytes % (manual) 0 Myelocytes % (Manual) 0 Promyelocytes % (Manual) 0 Blast Cells % (Manual) 0 Reactive Lymphocytes 0 Platelet Estimate Adequate Sodium Level 139 136-145 mmol/L Potassium Level 4.2 3.5-5.1 mmol/L Chloride Level 105 98-107 mmol/L Carbon Dioxide Level 24 20-31 mmol/L Anion Gap 10 5-15 Blood Urea Nitrogen 30 H 9-23 mg/dL Creatinine 2.16 H 0.700-1.30 mg/dL Glomerular Filtration Rate Calc 31 >90 mL/min BUN/Creatinine Ratio 13.9 10.0-20.0 Serum Glucose 108 H 74-106 mg/dL Calcium Level 8.7 8.7-10.4 mg/dL Iron Level 30 L 65-175 ug/dL Total Iron Binding Capacity 377 250-425 ug/dL Percent Iron Saturation 8.0 L 20-55 % Total Bilirubin 1.9 H 0.2-1.0 mg/dL Aspartate Amino Transferase (AST) 35 13-40 U/L Alanine Aminotransferase (ALT) 36 7-40 U/L Alkaline Phosphatase 64 46-116 U/L Total Protein 6.6 5.7-8.2 g/dL Albumin 4.2 3.2-4.8 g/dL Stool Occult Blood Positive Negative Stool Occult Blood Sample #3 Negative Urine Color Dark-brown Yellow Urine Clarity Ex.turbid Clear Urine pH 6.0 5.0-9.0 Urine Specific [place] 1.014 1.001-1.035 Urine Protein 3+ H Negative Urine Ketones Negative Negative Urine Blood 2+ H Negative /uL Urine Nitrite Negative Negative Urine Bilirubin Negative Negative Urine Urobilinogen Normal Negative mg/dL Urine Leukocyte Esterase 3+ Negative /uL Urine RBC 23 0 - 3 /hpf Urine WBC Clumps Present None Seen /hpf Urine Microscopic WBC 3653 H 0-3 /HPF Urine Squamous Epithelial Cells None seen <5 /hpf Urine Bacteria None seen None Seen /hpf Urine Mucus Few None Seen Urine Glucose Normal Normal mg/dL Large Platelets Few Anisocytosis (manual) Slight Microcytosis Slight Ovalocytes Few Troponin I High Sensitivity 15 </=54 ng/L Microbiology Date/Time Source Procedure Growth Status 08/20/24 17:00 Urine - Catheterized Urine Culture - Preliminary Resulted CT SCAN ABD PELVIS IMPRESSION: Severe atrophy of the left kidney with calculus extending from the lower pole of the left kidney into the left renal pelvis. Mild left hydroureteronephrosis with mild fat stranding adjacent to the left proximal ureter. Correlate for possible infectious process. Enlarged prostate recommend correlation with PSA. 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 twice a day Carafate 1 g p.o. twice a day Diet as tolerated; monitor labs I will be standing by for an endoscopy if the patient shows signs of active bleeding Otherwise I would recommend outpatient elective panendoscopy once medically stabilized Plan discussed with: Patient, Other (Nurse) CLARENCE COX MD Aug 21, 2024 23:04
[2024-08-21] MEDS ORDERED: DOCUSATE SOD 100 MG CAP PO PRN (23:15)
[2024-08-22] VITALS (12 sets, daily range): BP systolic 135–149; BP diastolic 69–90; PULSE 75–99; RESP 16–20; TEMP 97.6–99; O2SAT 90–100
[2024-08-22] MEDS: SUCRALFATE 1 GM/10 ML ORAL SUSP PO SCH (05:56)
[2024-08-22 06:33] LABS: Folate (Folic Acid) 11.68 ng/mL (>5.38)
[2024-08-22] MEDS: PANTOPRAZOLE 40 MG/10 ML VIAL INJ IV SCH (09:55)
--- NOTE | 2024-08-22 11:27 | DVHPN2 ---
Reviewed: Care Plan, H&P, Labs, Medications, Previous Orders, Radiology Changes from previous H/P or p: No Changes Eyes: No Pain, No Vision change, No Conjunctivae inflammation, No Eyelid inflammation, No Other, No Redness ENT: No Ear pain, No Ear discharge, No Nose pain, No Nose discharge, No Nose congestion, No Mouth pain, No Mouth swelling, No Throat pain, No Throat swelling, No Other Cardiovascular: No Chest Pain, No Palpitations, No Orthopnea, No Paroxysmal Noc. Dyspnea, No Edema, No Lt Headedness, No Other Respiratory: No Cough, No Dry; Shortness of breath, SOB with excertion; No Wheezing, No Hemoptysis, No Pleuritic Pain, No Sputum, No Other Gastrointestinal: No Nausea, No Vomiting, No Abdominal Pain, No Diarrhea, No Constipation, No Melena, No Hematochezia, No Other Genitourinary: No Dysuria, No Frequency, No Incontinence, No Hematuria, No Retention, No Other Musculoskeletal: No other, No neck pain, No shoulder pain, No arm pain, No back pain, No hand pain, No leg pain, No foot pain Skin: No Rash, No Lesions, No Jaundice, No Bruising, No Other Objective Vitals Vital Signs Date Time Temp Pulse Resp B/P (MAP) Pulse Ox O2 Delivery O2 Flow Rate FiO2 08/22/24 10:00 96 Nasal Cannula 2.0 08/22/24 10:00 28 08/22/24 08:40 92 16 08/22/24 08:30 97.6 147/90 (109) 97.6 Intake/Output Intake and Output 08/22/24 07:00 Intake Total 1750 ml Output Total 301 ml Balance 1449 ml Intake Oral 1750 ml Output Urine Total 300 ml Stool Total 1 ml # Voids 4 # Bowel Movements 1 Medications Current Medications Medications Dose Ordered Sig/Gaston Route Start Time Stop Time Status Last Admin Dose Admin Acetaminophen/ Hydrocodone Bitart 1 tab Q4HP PRN PO 08/20/24 13:30 08/21/24 20:06 1 TAB Ondansetron HCl 4 mg Q4HP PRN IV 08/20/24 13:30 Acetaminophen 650 mg Q6HP PRN PO 08/20/24 13:30 08/21/24 23:03 650 MG Nitroglycerin 0.4 mg Q5MINP PRN SL 08/20/24 13:30 Morphine Sulfate 2 mg Q30M PRN IV 08/20/24 13:30 Albuterol 2.5 mg Q4HPRN PRN NEB 08/20/24 13:45 08/22/24 08:40 2.5 MG Ipratropium [place] 0.5 mg Q4HPRN PRN NEB 08/20/24 13:45 08/22/24 08:40 0.5 MG Ceftriaxone Sodium 50 ml @ 100 mls/hr DAILY@09 IV 08/21/24 09:00 08/22/24 09:59 100 MLS/HR Pantoprazole Sodium 40 mg BID IV 08/22/24 10:00 08/22/24 09:55 40 MG Sucralfate 1 gm BID@0600,2200 PO 08/22/24 06:00 08/22/24 05:56 1 GM Docusate Sodium 100 mg DAILYPRN PRN PO 08/21/24 23:15 Laboratory Results Laboratory Tests 08/21/24 07:11 Urinalysis Test 08/20/24 17:00 Urine Color Dark-brown (Yellow) Urine Clarity Ex.turbid (Clear) Urine pH 6.0 (5.0-9.0) Urine Specific [place] 1.014 (1.001-1.035) Urine Protein 3+ (Negative) H Urine Ketones Negative (Negative) Urine Blood 2+ /uL (Negative) H Urine Nitrite Negative (Negative) Urine Bilirubin Negative (Negative) Urine Urobilinogen Normal mg/dL (Negative) Urine Leukocyte Esterase 3+ /uL (Negative) Urine RBC 23 /hpf (0 - 3) Urine WBC Clumps Present /hpf (None Seen) Urine Microscopic WBC 3653 /HPF (0-3) H Urine Squamous Epithelial Cells None seen /hpf (<5) Urine Bacteria None seen /hpf (None Seen) Urine Mucus Few (None Seen) Urine Glucose Normal mg/dL (Normal) Microbiology Microbiology Date/Time Source Procedure Growth Status 08/20/24 17:00 Urine - Catheterized Urine Culture - Preliminary Resulted Labs and/or images reviewed: Labs reviewed by me, Image(s) reviewed by me Assessment/Plan Assessment/Plan Septic shock WBC 20 K secondary to urinary tract infection: Blood cultures, urine cultures Gram-negative rods, continue Rocephin Acute generalized weakness Severe symptomatic Anemia hemoglobin 5.6 improved to 8.7 after 3 units RBC transfusion GI consult for Dr. Lindsey Ortega to rule out GI causes for anemia, pantoprazole Carafate EGD when stable BPH: CT abdomen pelvis without contrast enlarged prostate, PSA ordered urology consult Left kidney stone with a hydroureteronephrosis: Consult for Dr. Shaw Acute Hypotension Chronic kidney disease consult for Nephrology Moderate malnutrition Time spent 50 minutes Advanced care planning time 20 minutes Patient is full code Plan discussed with: Patient My Orders Orders - MAGDIEL DAO MD Procedure Category Date Status Time Blood Culture LISANDRO 08/21/24 In Process 14:02 Ct Ab Pel Wo Con-No CT 08/21/24 Resulted Oral Or Iv 14:02 * Gi [facility] CONS 08/21/24 Transmitted 14:03 Psa Total+% Free LAB 08/22/24 Transmitted 11:24 Date of Service: Aug 22, 2024 Billing Provider: MAGDIEL DAO MD Common Visit Codes: [id number] INP/OBS CARE(HIGH) MAGDIEL DAO MD Aug 22, 2024 11:27
--- NOTE | 2024-08-22 11:43 | DVHINCON2 ---
Date of service: Aug 22, [address] Simons Reason for Consultation Acute kidney injury History of Present Illness Patient is a 74-year-old male with past medical history of hypertension, nephrolithiasis, recurrent urinary tract infection and colon surgery is admitted for generalized weakness and severe anemia. On admission patient found to have elevated BUN creatinine nephrology is consulted for acute kidney injury Past Medical History Hypertension, chronic kidney disease, nephrolithiasis Past Surgical History Colon surgery Allergies: Coded Allergies: NO KNOWN ALLERGIES (Unverified , 08/20/24) Home Meds Reported Medications Amlodipine Besylate (NORVASC TABLET) 5 Mg Tb, 1 TAB PO DAILY, #30 TAB 5 Refills 08/20/24 Metoprolol Tartrate (Metoprolol Tartrate) 25 Mg Tab, 25 MG PO, TAB 08/20/24 Current Medications Current Medications Medications (Trade) Dose Ordered Sig/Gaston Route PRN Reason Start Time Stop Time Status Last Admin Albuterol (Ventolin Medneb) 2.5 mg Q6HWA [facility] 08/22/24 18:00 08/23/24 07:01 Ipratropium [place] (Atrovent Medneb) 0.5 mg Q6HWA [facility] 08/22/24 18:00 08/23/24 07:01 Fluticasone Propionate (Flonase [place]) 50 mcg Q12HR PRN EACHNOSTRI nasal congestion 08/22/24 22:45 Family History: Patient reports no known family medical history. Review of Systems All 12 item review of systems reviewed with the patient nonsignificant except what is mentioned in the history of present illness H&P Exam Vital Signs/I&O Vital Sign Date Time Temp Pulse Resp B/P (MAP) Pulse Ox O2 Delivery O2 Flow Rate FiO2 08/23/24 12:35 97.9 74 17 150/88 (108) 92 97.9 08/23/24 10:00 Room Air* 0 21 Intake and Output 08/22/24 08/23/24 19:00 07:00 Intake Total 850 ml 500 ml Output Total 600 ml 1000 ml Balance 250 ml -500 ml Intake Oral 800 ml 500 ml IV Total 50 ml Output Urine Total 600 ml 1000 ml Physical Exam Patient sitting up in bed appeared in no acute distress Lungs clear to auscultation bilaterally Cardiac exam regular rate and rhythm GI soft nontender normal Extremities no clubbing cyanosis or edema Neuro patient is awake and alert Labs/Diagnostic Data Labs/Diagnostic Data Laboratory Tests Test 08/23/24 11:30 08/22/24 12:51 08/22/24 05:08 08/21/24 07:11 Range/Units White Blood Count 11.4 #H 20.9 #H 4.4-10.8 10^3/uL Red Blood Count 3.11 L 2.99 L 4.5-5.90 10^6/uL Hemoglobin 9.0 L 8.7 L 13.5-17.5 g/dL Hematocrit 27.9 L 26.8 L 41.0-53.0 % Mean Corpuscular Volume 89.6 89.7 80.0-100.0 fL Mean Corpuscular Hemoglobin 29.0 29.2 28.0-32.0 pg Mean Corpuscular Hemoglobin Concent 32.4 32.5 32.0-36.0 g/dL Red Cell Distribution Width 19.7 H 18.9 H 11.8-14.3 % Platelet Count 395 381 140-450 10^3/uL Mean Platelet Volume 7.7 8.2 6.9-10.8 fL Neutrophils (%) (Auto) 37.0-80.0 % Lymphocytes (%) (Auto) 10.0-50.0 % Monocytes (%) (Auto) 0.0-12.0 % Basophils (%) (Auto) 0.0-2.0 % Neutrophils # (Auto) 1.6-8.6 10 ^3/uL Lymphocytes # (Auto) 0.4-5.4 10 ^3/uL Monocytes # (Auto) 0-1.3 10 ^3/uL Sodium Level 140 139 136-145 mmol/L Potassium Level 4.1 4.2 3.5-5.1 mmol/L Chloride Level 106 105 98-107 mmol/L Carbon Dioxide Level 26 24 20-31 mmol/L Anion Gap 8 10 5-15 Blood Urea Nitrogen 27 H 30 H 9-23 mg/dL Creatinine 1.87 H 2.16 H 0.700-1.30 mg/dL Glomerular Filtration Rate Calc 37 31 >90 mL/min BUN/Creatinine Ratio 14.4 13.9 10.0-20.0 Serum Glucose 93 108 H 74-106 mg/dL Calcium Level 9.5 8.7 8.7-10.4 mg/dL Total Bilirubin 1.5 H 1.9 H 0.2-1.0 mg/dL Aspartate Amino Transferase (AST) 27 35 13-40 U/L Alanine Aminotransferase (ALT) 41 H 36 7-40 U/L Alkaline Phosphatase 60 64 46-116 U/L Total Protein 6.9 6.6 5.7-8.2 g/dL Albumin 4.4 4.2 3.2-4.8 g/dL Free Prostate Specific Antigen 1.23 N/A ng/mL Percent Free Prostate Specific Ag 19.8 . % Prostate Specific Antigen Total 6.2 H 0.0-4.0 ng/mL Phosphorus Level 4.2 2.4-5.1 mg/dL Magnesium Level 2.6 1.6-2.6 mg/dL Prostate Specific Antigen 4.44 H 0.0-4.0 ng/mL Vitamin B12 Level 438 211-911 pg/mL Vitamin D 25-Hydroxy 37.5 30.0-100 ng/mL Folic Acid 11.68 >5.38 ng/mL Parathyroid Hormone (Intact) 119.4 H 18.4-80.1 pg/mL Differential Total Cells Counted 100.0 100 Neutrophils % (Manual) 86 H 37.0-80.0 Band Neutrophils % (Manual) 0 Lymphocytes % (Manual) 11 10.0-50.0 Monocytes % (Manual) 2 0-12 Eosinophils % (Manual) 1 0-7 Basophils % (Manual) 0 0.0-2.0 Metamyelocytes % (manual) 0 Myelocytes % (Manual) 0 Promyelocytes % (Manual) 0 Blast Cells % (Manual) 0 Reactive Lymphocytes 0 Platelet Estimate Adequate Iron Level 30 L 65-175 ug/dL Total Iron Binding Capacity 377 250-425 ug/dL Percent Iron Saturation 8.0 L 20-55 % Test 08/20/24 23:11 08/20/24 22:14 08/20/24 17:00 08/20/24 10:05 Range/Units Stool Occult Blood Positive Negative Stool Occult Blood Sample #3 Negative Hemoglobin 8.6 #L 5.6 *L 13.5-17.5 g/dL Hematocrit 26.2 #L 17.5 L 41.0-53.0 % Urine Color Dark-brown Yellow Urine Clarity Ex.turbid Clear Urine pH 6.0 5.0-9.0 Urine Specific [place] 1.014 1.001-1.035 Urine Protein 3+ H Negative Urine Ketones Negative Negative Urine Blood 2+ H Negative /uL Urine Nitrite Negative Negative Urine Bilirubin Negative Negative Urine Urobilinogen Normal Negative mg/dL Urine Leukocyte Esterase 3+ Negative /uL Urine RBC 23 0 - 3 /hpf Urine WBC Clumps Present None Seen /hpf Urine Microscopic WBC 3653 H 0-3 /HPF Urine Squamous Epithelial Cells None seen <5 /hpf Urine Bacteria None seen None Seen /hpf Urine Mucus Few None Seen Urine Glucose Normal Normal mg/dL White Blood Count 15.5 H 4.4-10.8 10^3/uL Red Blood Count 1.91 L 4.5-5.90 10^6/uL Mean Corpuscular Volume 91.6 80.0-100.0 fL Mean Corpuscular Hemoglobin 29.3 28.0-32.0 pg Mean Corpuscular Hemoglobin Concent 32.0 32.0-36.0 g/dL Red Cell Distribution Width 22.0 H 11.8-14.3 % Platelet Count 366 140-450 10^3/uL Mean Platelet Volume 8.1 6.9-10.8 fL Neutrophils (%) (Auto) 37.0-80.0 % Lymphocytes (%) (Auto) 10.0-50.0 % Monocytes (%) (Auto) 0.0-12.0 % Basophils (%) (Auto) 0.0-2.0 % Neutrophils # (Auto) 1.6-8.6 10 ^3/uL Lymphocytes # (Auto) 0.4-5.4 10 ^3/uL Monocytes # (Auto) 0-1.3 10 ^3/uL Differential Total Cells Counted 100.0 100 Neutrophils % (Manual) 77 37.0-80.0 Band Neutrophils % (Manual) 5 Lymphocytes % (Manual) 10 10.0-50.0 Monocytes % (Manual) 1 0-12 Eosinophils % (Manual) 5 0-7 Basophils % (Manual) 0 0.0-2.0 Metamyelocytes % (manual) 1 Myelocytes % (Manual) 1 Promyelocytes % (Manual) 0 Blast Cells % (Manual) 0 Reactive Lymphocytes 0 Platelet Estimate Adequate Large Platelets Few Anisocytosis (manual) Slight Microcytosis Slight Ovalocytes Few Sodium Level 138 136-145 mmol/L Potassium Level 4.6 3.5-5.1 mmol/L Chloride Level 105 98-107 mmol/L Carbon Dioxide Level 27 20-31 mmol/L Anion Gap 6 5-15 Blood Urea Nitrogen 28 H 9-23 mg/dL Creatinine 1.96 H 0.700-1.30 mg/dL Glomerular Filtration Rate Calc 35 >90 mL/min BUN/Creatinine Ratio 14.3 10.0-20.0 Serum Glucose 104 74-106 mg/dL Calcium Level 8.5 L 8.7-10.4 mg/dL Troponin I High Sensitivity 15 </=54 ng/L Assessment Acute kidney injury superimposed Chronic Kidney Disease secondary hemodynamic mediated Urinary obstruction Pyelonephritis Nephrolithiasis BPH Anemia due to blood loss GI bleeding Hypertension Recommendations Closely monitor fluid and electrolytes Avoid nephrotoxic medications Strict I&Os IV antibiotics Blood pressure control Packed red blood cell transfusion as needed GI consult Urology consult We will continue to follow Patient seen and examined by myself. I discussed my plan of care with the patient and primary nurse at the bedside I would like to thank Dr. Simons for the consult, will follow up Plan discussed with: Patient DAMION JACINTO MD Aug 22, 2024 11:43
[2024-08-22 12:26] LABS: Magnesium 2.6 mg/dL (1.6-2.6)
[2024-08-22 12:28] LABS: Phosphorus 4.2 mg/dL (2.4-5.1)
--- NOTE | 2024-08-22 14:34 | DVHINCON2 ---
Date of service: Aug 22, 2024 Referring Physician Hospitalist Reason for Consultation Atrophic left kidney with large calculus History of Present Illness 66-year-old male brought in by ambulance prior medical history of anemia in the chief complaint of generally weakness. EMS report that the patient has weakness for one week with shortness a breath, and whenever the patient walks he feels fatigued. On scene the patient had her blood sugar of 120 with a sat of 95% room air. Denies chills, fever, N/V/D, CP. No other associated symptoms, modifiers, recent injuries or sick contacts present at this time. Patient does reports lower urinary symptoms including slow stream, dribbling and nocturia. He informs me that he has had history of BPH Reviewed Notes: Nurses Notes, Grievance Coordinator Notes, Medications, Allergies Allergies: Coded Allergies: NO KNOWN ALLERGIES (Unverified , 08/20/24) Information Source: Patient, Emergency Med Personnel Mode of Arrival: EMS Severity: Moderate Timing: Days Duration: Since onset, Days Prehospital treatment: None Past Medical History Anemia BPH Past Surgical History Denies all surgeries Family History: Patient reports no known family medical history. Allergies: Coded Allergies: NO KNOWN ALLERGIES (Unverified , 08/20/24) Home Meds Reported Medications Amlodipine Besylate (NORVASC TABLET) 5 Mg Tb, 1 TAB PO DAILY, #30 TAB 5 Refills 08/20/24 Metoprolol Tartrate (Metoprolol Tartrate) 25 Mg Tab, 25 MG PO, TAB 08/20/24 Current Medications Current Medications Medications (Trade) Dose Ordered Sig/Gaston Route PRN Reason Start Time Stop Time Status Last Admin Pantoprazole Sodium (Protonix) 40 mg BID IV 08/22/24 10:00 08/22/24 09:55 Sucralfate (Carafate Susp) 1 gm BID@0600,2200 PO 08/22/24 06:00 08/22/24 05:56 Docusate Sodium (Colace Capsule) 100 mg DAILYPRN PRN PO FOR CONSTIPATION 08/21/24 23:15 Albuterol (Ventolin Medneb) 2.5 mg Q6HWA [facility] 08/22/24 18:00 UNV Ipratropium [place] (Atrovent Medneb) 0.5 mg Q6HWA [facility] 08/22/24 18:00 UNV Review of Systems Constitutional: reports: fatigue, weakness; denies: chills, diaphoresis, fever, malaise, sweats, others EENTM: denies: blurred vision, double vision, ear bleeding, ear discharge, ear drainage, ear pain, ear ringing, eye pain, eye redness, hearing loss, mouth pain, mouth swelling, nasal discharge, nose bleeding, nose congestion, nose pain, photophobia, tearing, throat pain, throat swelling, voice changes, others Respiratory: denies: cough, hemoptysis, orthopnea, SOB at rest, shortness of breath, SOB with excertion, stridor, wheezing, others Cardiovascular: denies: chest pain, dizzy spells, diaphoresis, Dyspnea on exertion, edema, irregular heart beat, left arm pain, lightheadedness, palpitations, PND, syncope, others Gastrointestinal: denies: abdomen distended, abdominal pain, blood streaked bowels, constipated, diarrhea, dysphagia, difficulty swallowing, hematemesis, melena, nausea, poor appetite, poor fluid intake, rectal bleeding, rectal pain, vomiting, others Genitourinary: Postvoid dribbling, straining to urinate and nocturia Neurological: denies: dizziness, fainting, headache, left sided numbness, left sided weakness, numbness, paresthesia, pre-existing deficit, right sided numbnes s, right sided weakness, seizure, speech problems, tingling, tremors, weakness, others Musculoskeletal: denies: back pain, gout, joint pain, joint swelling, muscle pain, muscle stiffness, neck pain, others Integumetry: denies: bruises, change in color, change in hair/nails, dryness, laceration, lesions, lumps, rash, wounds, others Allergic/Immunocompromised: denies: Difficulty Healing, Frequent Infections, Hives, Itching, others Hematologic/Lymphatic: denies: anemia, blood clots, easy bleeding, easy bruising, swollen glands, others Endocrine: denies: excessive hunger, excessive sweating, excessive thirst, excessive urination, flushing, intolerance to cold, intolerance to heat, unexplained weight gain, unexplained weight loss, others Psychiatric: denies: anxiety, bipolar disorder, depression, hopeless, panic disorder, schizophrenia, sleepless, suicidal, others All Other Systems: Reviewed and Negative Vital Signs Vital Signs Date Time Temp Pulse Resp B/P (MAP) Pulse Ox O2 Delivery O2 Flow Rate FiO2 08/22/24 13:06 97.9 87 18 148/81 (103) 95 97.9 08/22/24 10:00 Nasal Cannula 2.0 08/22/24 10:00 28 Physical Exam General Appearance: Moderate Distress, Normal HEENT: Normal ENT Inspection, Pharynx Normal, TMs Normal Neck: Full Range of Motion, Non-Tender, Normal, Normal Inspection Respiratory: Chest Non-Tender, Lungs Clear, No Accessory Muscle Use, No Respiratory Distress, Normal Breath Sounds Cardiovascular: No Edema, No JVD, No Murmur, No Gallop, Normal Peripheral Pulses, Regular Rate/Rhythm Breast Exam: Deferred Gastrointestinal: No Organomegaly, Non Tender, No Pulsatile Mass, Normal Bowel Sounds, Soft Genitalia: Deferred Pelvic: Deferred Rectal: Deferred Extremities: No calf tenderness, Normal capillary refill, Normal inspection, Normal range of motion, Non-tender, No pedal edema Musculoskeletal : Apperance: Normal Neurologic: Alert, project design engineer II-XII nml as Tested, No Motor Deficits, Normal Affect, Normal Mood, No Sensory Deficits Cerebellar Function: NOT DONE Reflexes: NOT DONE Skin: Dry, Pallor, Warm Peripheral Pulses: 3+ Radial (R), 3+ Radial (L) Lymphatic: No Adenopathy Labs/Diagnostic Data Labs Test 08/22/24 12:51 08/22/24 05:08 08/21/24 07:11 08/20/24 23:11 Range/Units Phosphorus Level 4.2 2.4-5.1 mg/dL Magnesium Level 2.6 1.6-2.6 mg/dL Prostate Specific Antigen 4.44 H 0.0-4.0 ng/mL Vitamin B12 Level 438 211-911 pg/mL Vitamin D 25-Hydroxy 37.5 30.0-100 ng/mL Folic Acid 11.68 >5.38 ng/mL Parathyroid Hormone (Intact) 119.4 H 18.4-80.1 pg/mL White Blood Count 20.9 #H 4.4-10.8 10^3/uL Red Blood Count 2.99 L 4.5-5.90 10^6/uL Hemoglobin 8.7 L 13.5-17.5 g/dL Hematocrit 26.8 L 41.0-53.0 % Mean Corpuscular Volume 89.7 80.0-100.0 fL Mean Corpuscular Hemoglobin 29.2 28.0-32.0 pg Mean Corpuscular Hemoglobin Concent 32.5 32.0-36.0 g/dL Red Cell Distribution Width 18.9 H 11.8-14.3 % Platelet Count 381 140-450 10^3/uL Mean Platelet Volume 8.2 6.9-10.8 fL Neutrophils (%) (Auto) 37.0-80.0 % Lymphocytes (%) (Auto) 10.0-50.0 % Monocytes (%) (Auto) 0.0-12.0 % Basophils (%) (Auto) 0.0-2.0 % Neutrophils # (Auto) 1.6-8.6 10 ^3/uL Lymphocytes # (Auto) 0.4-5.4 10 ^3/uL Monocytes # (Auto) 0-1.3 10 ^3/uL Differential Total Cells Counted 100.0 100 Neutrophils % (Manual) 86 H 37.0-80.0 Band Neutrophils % (Manual) 0 Lymphocytes % (Manual) 11 10.0-50.0 Monocytes % (Manual) 2 0-12 Eosinophils % (Manual) 1 0-7 Basophils % (Manual) 0 0.0-2.0 Metamyelocytes % (manual) 0 Myelocytes % (Manual) 0 Promyelocytes % (Manual) 0 Blast Cells % (Manual) 0 Reactive Lymphocytes 0 Platelet Estimate Adequate Sodium Level 139 136-145 mmol/L Potassium Level 4.2 3.5-5.1 mmol/L Chloride Level 105 98-107 mmol/L Carbon Dioxide Level 24 20-31 mmol/L Anion Gap 10 5-15 Blood Urea Nitrogen 30 H 9-23 mg/dL Creatinine 2.16 H 0.700-1.30 mg/dL Glomerular Filtration Rate Calc 31 >90 mL/min BUN/Creatinine Ratio 13.9 10.0-20.0 Serum Glucose 108 H 74-106 mg/dL Calcium Level 8.7 8.7-10.4 mg/dL Iron Level 30 L 65-175 ug/dL Total Iron Binding Capacity 377 250-425 ug/dL Percent Iron Saturation 8.0 L 20-55 % Total Bilirubin 1.9 H 0.2-1.0 mg/dL Aspartate Amino Transferase (AST) 35 13-40 U/L Alanine Aminotransferase (ALT) 36 7-40 U/L Alkaline Phosphatase 64 46-116 U/L Total Protein 6.6 5.7-8.2 g/dL Albumin 4.2 3.2-4.8 g/dL Stool Occult Blood Positive Negative Stool Occult Blood Sample #3 Negative Test 08/20/24 17:00 08/20/24 10:05 Range/Units Urine Color Dark-brown Yellow Urine Clarity Ex.turbid Clear Urine pH 6.0 5.0-9.0 Urine Specific [place] 1.014 1.001-1.035 Urine Protein 3+ H Negative Urine Ketones Negative Negative Urine Blood 2+ H Negative /uL Urine Nitrite Negative Negative Urine Bilirubin Negative Negative Urine Urobilinogen Normal Negative mg/dL Urine Leukocyte Esterase 3+ Negative /uL Urine RBC 23 0 - 3 /hpf Urine WBC Clumps Present None Seen /hpf Urine Microscopic WBC 3653 H 0-3 /HPF Urine Squamous Epithelial Cells None seen <5 /hpf Urine Bacteria None seen None Seen /hpf Urine Mucus Few None Seen Urine Glucose Normal Normal mg/dL Large Platelets Few Anisocytosis (manual) Slight Microcytosis Slight Ovalocytes Few Troponin I High Sensitivity 15 </=54 ng/L Microbiology Date/Time Source Procedure Growth Status 08/20/24 17:00 Urine - Catheterized Urine Culture - Preliminary Citrobacter koseri Resulted Assessment BPH withLUTS Left nephrolithiasis Atrophic left kidney Anemia Plan/Recommendation Mag3 renal scan with split renal function and Lasix washout Patient states that he was told by [facility] many years ago that his left kidney is nonfunctional PSA Cystoscopy with [place] evaluation as outpatient in the clinic Plan discussed with: Patient, Other SULTANA SELLERS MD Aug 22, 2024 14:34
--- NOTE | 2024-08-22 15:57 | DVH ---
CLINICAL HISTORY: Severe anemia rule out any malignancy TECHNIQUE: CT of the chest was performed without intravenous contrast. This exam was performed accord ing to our departmental dose optimization program. Up-to-date CT equipment and radiation dose reducti on techniques are utilized as appropriate. COMPARISON: None FINDINGS: Lower Neck: Unremarkable Axilla, Mediastinum and Misty: No axillary adenopathy. There is mild mediastinal lymphadenopathy. Heart ited evaluation of the misty in the absence of intravenous contrast. Heart and Great Vessels: Mild cardiomegaly with small pericardial fluid. The thoracic aorta is normal in caliber with mild calcified atherosclerotic plaque. At least mild calcified coronary artery disea se. Hypodensity of the blood pool relative to the myocardium indicative of anemia. The central pulmon leonel arteries are normal caliber. Airway, Lungs and Pleura: Moderate right and small left pleural effusions. Trachea and central airway s are patent. Bronchial wall thickening bilaterally. There is interlobular septal thickening in the lungs and patchy ground-glass opacification of the lung parenchyma. Scattered linear atelectasis or s carring in the lungs. Upper Abdomen: See separately dictated recent CT abdomen and pelvis. Chest Wall and Osseous Structures: Flowing anterior osteophytes of the thoracic spine compatible with DISH. Mild multilevel thoracic spondylosis. There is asymmetric left gynecomastia with masslike thi ckening and a fluid component within this area of masslike thickening which in aggregate measures 3.4 x 3.0 x 4.9 cm on series 3, image 22 and series 602, image 110. There is mild chest wall edema. Dyst rophic calcifications in the anterior chest wall. IMPRESSION: 1. CHF/volume overload with mild cardiomegaly, interstitial and alveolar pulmonary edema, moderate ri ght and small left pleural effusions. 2. Asymmetric left gynecomastia with masslike thickening and fluid component within this area of mass like thickening. Correlate with mammogram as soft tissue mass/ malignancy is a concern 3. Mild mediastinal lymphadenopathy. DDX includes passive congestion, reactive lymphadenopathy, or m etastatic disease (in the appropriate clinical setting). 4. Anemia. Radiation optimization: All CT scans at this facility use at least one of these dose optimization juliana hniques: automated exposure control mA and/or kV adjustment per patient size (includes targeted exam s where dose is matched to clinical indication) or iterative reconstruction.
--- NOTE | 2024-08-22 16:01 | DVHPN2 ---
Progress Note - Dictate Date Seen: Aug 22, 2024 Medical Necessity Reason Pt with a Central, PICC or Fol: No Subjective Patient is clinically stable today He is feeling less weak and less short of breath Patient is tolerating diet There was no nausea vomiting or active GI bleeding Urine culture was positive for Citrobacter koseri Patient has been seen by urology consult vital signs Vital Sign Date Time Temp Pulse Resp B/P (MAP) Pulse Ox O2 Delivery O2 Flow Rate FiO2 08/22/24 14:33 94 Nasal Cannula 1.0 08/22/24 14:33 84 16 08/22/24 14:33 24 08/22/24 13:06 97.9 148/81 (103) 97.9 Total Intake and Output 08/21/24 08/21/24 08/22/24 15:00 23:00 07:00 Intake Total 1050 ml 700 ml Output Total 301 ml Balance 1050 ml 399 ml medications Current Medications Medications Dose Ordered Sig/Gaston Route Start Time Stop Time Status Last Admin Dose Admin Acetaminophen/ Hydrocodone Bitart 1 tab Q4HP PRN PO 08/20/24 13:30 08/21/24 20:06 1 TAB Ondansetron HCl 4 mg Q4HP PRN IV 08/20/24 13:30 Acetaminophen 650 mg Q6HP PRN PO 08/20/24 13:30 08/21/24 23:03 650 MG Nitroglycerin 0.4 mg Q5MINP PRN SL 08/20/24 13:30 Morphine Sulfate 2 mg Q30M PRN IV 08/20/24 13:30 Ceftriaxone Sodium 50 ml @ 100 mls/hr DAILY@09 IV 08/21/24 09:00 08/22/24 09:59 100 MLS/HR Pantoprazole Sodium 40 mg BID IV 08/22/24 10:00 08/22/24 09:55 40 MG Sucralfate 1 gm BID@0600,2200 PO 08/22/24 06:00 08/22/24 05:56 1 GM Docusate Sodium 100 mg DAILYPRN PRN PO 08/21/24 23:15 Albuterol 2.5 mg Q6HWA NEB 08/22/24 18:00 Ipratropium [place] 0.5 mg Q6HWA NEB 08/22/24 18:00 objective General Appearance: Alert, Oriented X3, Cooperative, mild distress, Other (weakness) HEENT: Atraumatic, PERRLA, Other (dry mucous membr) Respiratory: Clear to auscultation, Normal air movement, Other (short of breath at rest and with activity) Cardiovascular: Regular rate, Normal S1, Normal S2 Abdominal: Normal bowel sounds, Soft, No tenderness, No hepatospenomegaly Extremities: No clubbing, No cyanosis, No edema, Normal pulses Skin: No rashes, No breakdown, No significant lesion Neuro: Normal gait, Normal speech Psych/Mental Status: Mental status NL, Mood NL laboratory and microbiology Laboratory Tests 08/21/24 07:11 Test 08/21/24 07:11 Range/Units Serum Glucose 108 H 74-106 mg/dL Problems(with codes): (1) Sepsis due to gram-negative UTI (2) Severe anemia (3) Positive occult stool blood test Prognosis Plan Protonix 40 mg IV q.12 hours Carafate 1 g p.o. twice a day GI workup when patient is more stable Diet as tolerated Continue to monitor labs Urology recommendations noted Mag3 renal scan with split renal function and Lasix washout PSA Check CBC and CMP in a.m. Plan discussed with: Other (Nurse) CC Plasma Assessment Blood Product Administration S: [id number] CLARENCE COX MD Aug 22, 2024 16:01
[2024-08-22] MEDS: ALBUTEROL SULF 2.5 MG/0.5ML(0.5%) NEB SOLN NEB SCH (18:40)
[2024-08-22] MEDS: IPRATROPIUM BROM 0.5 MG/2.5ML INH SOL NEB SCH (18:40)
[2024-08-23] VITALS (15 sets, daily range): BP systolic 142–165; BP diastolic 70–94; PULSE 70–104; RESP 16–18; TEMP 97.8–98.5; O2SAT 90–100
[2024-08-23] MEDS: FUROSEMIDE 40 MG/4 ML VIAL IV ONE (08:45)
[2024-08-23] MEDS: FUROSEMIDE 40 MG/4 ML VIAL ONE (09:00)
[2024-08-23 10:07] LABS: PSA Free 1.23 ng/mL; Prostate Specific Antigen 6.2 ng/mL (0.0-4.0)
--- NOTE | 2024-08-23 10:33 | DVHPN2 ---
Progress Note Date Seen: Aug 23, 2024 Medical Necessity Reason Pt with a Central, PICC or Fol: No Subjective Patient reports: No new complaints Other Systems: Patient seen and examined by myself today in follow-up Objective vital signs Vital Sign Date Time Temp Pulse Resp B/P (MAP) Pulse Ox O2 Delivery O2 Flow Rate FiO2 08/23/24 09:00 141/78 08/23/24 08:30 98.2 89 18 96 98.2 08/22/24 20:00 Nasal Cannula* 2 28 Total Intake and Output 08/22/24 08/22/24 08/23/24 15:00 23:00 07:00 Intake Total 50 ml 800 ml 500 ml Output Total 600 ml 1000 ml Balance 50 ml 200 ml -500 ml medications Current Medications Medications Dose Ordered Sig/Gaston Route Start Time Stop Time Status Last Admin Dose Admin Acetaminophen/ Hydrocodone Bitart 1 tab Q4HP PRN PO 08/20/24 13:30 08/21/24 20:06 1 TAB Ondansetron HCl 4 mg Q4HP PRN IV 08/20/24 13:30 Acetaminophen 650 mg Q6HP PRN PO 08/20/24 13:30 08/21/24 23:03 650 MG Nitroglycerin 0.4 mg Q5MINP PRN SL 08/20/24 13:30 Morphine Sulfate 2 mg Q30M PRN IV 08/20/24 13:30 Ceftriaxone Sodium 50 ml @ 100 mls/hr DAILY@09 IV 08/21/24 09:00 08/23/24 09:28 100 MLS/HR Pantoprazole Sodium 40 mg BID IV 08/22/24 10:00 08/23/24 09:28 40 MG Sucralfate 1 gm BID@0600,2200 PO 08/22/24 06:00 08/23/24 06:36 1 GM Docusate Sodium 100 mg DAILYPRN PRN PO 08/21/24 23:15 Albuterol 2.5 mg Q6HWA NEB 08/22/24 18:00 08/23/24 07:01 2.5 MG Ipratropium [place] 0.5 mg Q6HWA NEB 08/22/24 18:00 08/23/24 07:01 0.5 MG Fluticasone Propionate 50 mcg Q12HR PRN EACHNOSTRI 08/22/24 22:45 Examination: LUNGS:Normal, CVS:Normal, MSK:Normal laboratory and microbiology Laboratory Tests 08/21/24 07:11 Test 08/21/24 07:11 Range/Units Serum Glucose 108 H 74-106 mg/dL Microbiology Date/Time Source Procedure Growth Status 08/21/24 15:38 Blood Blood Culture - Preliminary NO GROWTH AFTER 24 HOURS OF INCUBATION. Resulted 08/20/24 17:00 Urine - Catheterized Urine Culture - Preliminary Citrobacter koseri Resulted Problem List/Assessment/Plan Problem List/Assessment/Plan Acute kidney injury superimposed Chronic Kidney Disease secondary hemodynamic mediated Urinary obstruction Left hydroureteronephrosis Atrophic left kidney Pyelonephritis Nephrolithiasis BPH Anemia due to blood loss GI bleeding Hypertension Recommendations No new labs today Increased urine output Strict I&Os IV antibiotics Blood pressure control Packed red blood cell transfusion as needed GI consult Urology consult We will continue to follow Plan discussed with: Patient My Orders My Orders Orders - DAMION JACINTO MD Procedure Category Date Status Time Urine LAB 08/22/24 Logged Protein/Creatinine Urinalysis LAB 08/22/24 Logged 11:45 Urine Sodium LAB 08/22/24 Logged UNK CC Plasma Assessment Blood Product Administration S: [id number] DAMION JACINTO MD Aug 23, 2024 10:33
--- NOTE | 2024-08-23 11:30 | DVHPN2 ---
Reviewed: Care Plan, H&P, Labs, Medications, Previous Orders, Radiology Changes from previous H/P or p: No Changes Eyes: No Pain, No Vision change, No Conjunctivae inflammation, No Eyelid inflammation, No Other, No Redness ENT: No Ear pain, No Ear discharge, No Nose pain, No Nose discharge, No Nose congestion, No Mouth pain, No Mouth swelling, No Throat pain, No Throat swelling, No Other Cardiovascular: No Chest Pain, No Palpitations, No Orthopnea, No Paroxysmal Noc. Dyspnea, No Edema, No Lt Headedness, No Other Respiratory: No Cough, No Dry; Shortness of breath, SOB with excertion; No Wheezing, No Hemoptysis, No Pleuritic Pain, No Sputum, No Other Gastrointestinal: No Nausea, No Vomiting, No Abdominal Pain, No Diarrhea, No Constipation, No Melena, No Hematochezia, No Other Genitourinary: No Dysuria, No Frequency, No Incontinence, No Hematuria, No Retention, No Other Musculoskeletal: No other, No neck pain, No shoulder pain, No arm pain, No back pain, No hand pain, No leg pain, No foot pain Skin: No Rash, No Lesions, No Jaundice, No Bruising, No Other Objective Vitals Vital Signs Date Time Temp Pulse Resp B/P (MAP) Pulse Ox O2 Delivery O2 Flow Rate FiO2 08/23/24 09:00 141/78 08/23/24 08:30 98.2 89 18 96 98.2 08/23/24 07:01 Nasal Cannula 1.0 08/23/24 07:01 24 Intake/Output Intake and Output 08/23/24 07:00 Intake Total 1350 ml Output Total 1600 ml Balance -250 ml Intake Oral 1300 ml IV Total 50 ml Output Urine Total 1600 ml Medications Current Medications Medications Dose Ordered Sig/Gaston Route Start Time Stop Time Status Last Admin Dose Admin Acetaminophen/ Hydrocodone Bitart 1 tab Q4HP PRN PO 08/20/24 13:30 08/21/24 20:06 1 TAB Ondansetron HCl 4 mg Q4HP PRN IV 08/20/24 13:30 Acetaminophen 650 mg Q6HP PRN PO 08/20/24 13:30 08/21/24 23:03 650 MG Nitroglycerin 0.4 mg Q5MINP PRN SL 08/20/24 13:30 Morphine Sulfate 2 mg Q30M PRN IV 08/20/24 13:30 Ceftriaxone Sodium 50 ml @ 100 mls/hr DAILY@09 IV 08/21/24 09:00 08/23/24 09:28 100 MLS/HR Pantoprazole Sodium 40 mg BID IV 08/22/24 10:00 08/23/24 09:28 40 MG Sucralfate 1 gm BID@0600,2200 PO 08/22/24 06:00 08/23/24 06:36 1 GM Docusate Sodium 100 mg DAILYPRN PRN PO 08/21/24 23:15 Albuterol 2.5 mg Q6HWA NEB 08/22/24 18:00 08/23/24 07:01 2.5 MG Ipratropium [place] 0.5 mg Q6HWA NEB 08/22/24 18:00 08/23/24 07:01 0.5 MG Fluticasone Propionate 50 mcg Q12HR PRN EACHNOSTRI 08/22/24 22:45 Laboratory Results Laboratory Tests 08/21/24 07:11 Urinalysis Test 08/20/24 17:00 Urine Color Dark-brown (Yellow) Urine Clarity Ex.turbid (Clear) Urine pH 6.0 (5.0-9.0) Urine Specific [place] 1.014 (1.001-1.035) Urine Protein 3+ (Negative) H Urine Ketones Negative (Negative) Urine Blood 2+ /uL (Negative) H Urine Nitrite Negative (Negative) Urine Bilirubin Negative (Negative) Urine Urobilinogen Normal mg/dL (Negative) Urine Leukocyte Esterase 3+ /uL (Negative) Urine RBC 23 /hpf (0 - 3) Urine WBC Clumps Present /hpf (None Seen) Urine Microscopic WBC 3653 /HPF (0-3) H Urine Squamous Epithelial Cells None seen /hpf (<5) Urine Bacteria None seen /hpf (None Seen) Urine Mucus Few (None Seen) Urine Glucose Normal mg/dL (Normal) Microbiology Microbiology Date/Time Source Procedure Growth Status 08/21/24 15:38 Blood Blood Culture - Preliminary NO GROWTH AFTER 24 HOURS OF INCUBATION. Resulted 08/20/24 17:00 Urine - Catheterized Urine Culture - Preliminary Citrobacter koseri Resulted Labs and/or images reviewed: Labs reviewed by me, Image(s) reviewed by me Assessment/Plan Assessment/Plan Septic shock WBC 20 K secondary to urinary tract infection: Blood cultures negative, urine cultures growing Citrobacter , continue Rocephin Acute generalized weakness Severe symptomatic Anemia hemoglobin 5.6 improved to 8.7 after 3 units RBC transfusion GI consult for Dr. Lindsey Ortega to rule out GI causes for anemia, pantoprazole Carafate EGD when stable BPH: CT abdomen pelvis without contrast enlarged prostate, PSA ordered urology consult Left kidney stone with a hydroureteronephrosis: Consult for Dr. Shaw appreciated awaiting Mag 3 scan with Lasix washout Acute Hypotension Hypertension Nonfunctioning left kidney [facility] MARITO on CKD consult for Nephrology appreciated Moderate malnutrition Time spent 50 minutes Advanced care planning time 20 minutes Patient is full code Lives in the backyard of his grandson Plan discussed with: Patient My Orders Orders - MAGDIEL DAO MD Procedure Category Date Status Time * Urology Consult CONS 08/22/24 Transmitted 11:27 *[facility]. [facility] CONS 08/22/24 Transmitted -[place] 11:[address] 08/22/24 Resulted 13:12 Albuterol Medneb PHA 08/22/24 In Process (Ventolin Medneb) 18:00 Ipratropium Medneb PHA 08/22/24 In Process (Atrovent Medneb) 18:00 Date of Service: Aug 23, 2024 Billing Provider: MAGDIEL DAO MD Common Visit Codes: [id number] INP/OBS CARE(HIGH) MAGDIEL DAO MD Aug 23, 2024 11:30
[2024-08-23 11:46] LABS: Hematocrit 27.9 % (41.0-53.0); Mean Corpuscular Hgb Conc. 32.4 g/dL (32.0-36.0); Mean Corpuscular Volume 89.6 fL (80.0-100.0); Platelet Count (auto) 395 10^3/uL (140-450); Red Blood Cells 3.11 10^6/uL (4.5-5.90); Red Cell Distribution Width 19.7 % (11.8-14.3); White Blood Cell 11.4 10^3/uL (4.4-10.8)
[2024-08-23 11:53] LABS: Basophils % (manual) 0 (0.0-2.0); Blast Cells 0; Myelocytes % 0; Promyelocytes % 0; Reactive Lymphocytes 0
[2024-08-23 12:06] LABS: Albumin 4.4 g/dL (3.2-4.8); Alkaline Phosphatase 60 U/L (46-116); Anion Gap 8 (5-15); Aspartate Aminotransferase 27 U/L (13-40); BUN/Creatinine Ratio 14.4 (10.0-20.0); Calcium 9.5 mg/dL (8.7-10.4); Carbon Dioxide 26 mmol/L (20-31); Chloride 106 mmol/L (98-107); Glucose 93 mg/dL (74-106); Potassium 4.1 mmol/L (3.5-5.1); Sodium 140 mmol/L (136-145); Total Protein 6.9 g/dL (5.7-8.2)
[2024-08-23 12:08] LABS: Alanine Aminotransferase 41 U/L (7-40); Bilirubin, Total 1.5 mg/dL (0.2-1.0); Blood Urea Nitrogen 27 mg/dL (9-23)
[2024-08-23 12:54] LABS: Band Neutrophils % (manual) 7; Eosinophils % (manual) 1 (0-7); Lymphocytes % (manual) 8 (10.0-50.0); Metamyelocytes % 1; Monocytes % (manual) 1 (0-12); Platelet Estimate Adequate
--- NOTE | 2024-08-23 15:54 | DVH ---
EXAM: NM NM MAG3 RENAL SCAN DATE OF SERVICE: 08/23/2024 08:29 AM ORDERING PHYSICIAN: MAGDIEL DAO REASON FOR EXAM: Left hydronephrosis with stone TECHNIQUE: During the injection of radiopharmaceutical, posterior flow images of the kidneys were ac quired immediately at one frame per second for one minute, immediately followed by posterior imaging at 30 seconds per frame for 30 minutes. Approximately 20 minutes after the radiopharmaceutical admini stration, the indicated dose of lasix was administered. Regions of interest were drawn around the kid neys and time activity curves were generated. Differential function was calculated. COMPARISON: None FINDINGS: Blood flow images demonstrate prompt flow to the right kidney with no focal defects. Delayed flow to the left kidney. Functional images demonstrate a cortical transit time ([id number]) of 4.5 on the right and 40.5 on the left (normal is < 6 minutes). There is adequate spontaneous excretion from the right kidney. No definite evidence of excretion from the left kidney. Differential function (uptake %) is 93.9 % by the right kidney and 6.1 % by the left kidney. IMPRESSION: 1. Unremarkable perfusion and function of the right kidney with no evidence of obstruction. 2. Essentially nonfunctioning left kidney. 3. Differential renal function (uptake percent) of 93.9 % by the right kidney and 6.1 % by the left.
[2024-08-23] MEDS: FLUTICASONE PROP NASAL SPR 0.05 % (50MCG) 16GM EACHNOSTRI PRN (21:26)
[2024-08-23] MEDS: hydrALAZINE HCL 20 MG/ML VL IV PRN (21:34)
--- NOTE | 2024-08-23 22:57 | DVHPN2 ---
Progress Note - Dictate Date Seen: Aug 23, 2024 Medical Necessity Reason Pt with a Central, PICC or Fol: No Subjective Patient is clinically stable today He is feeling less weak and less short of breath Patient is tolerating diet Patient continues to be noncompliant with medical treatment and management There was no nausea vomiting or active GI bleeding Urine culture was positive for Citrobacter koseri Patient has been seen by urology consult vital signs Vital Sign Date Time Temp Pulse Resp B/P (MAP) Pulse Ox O2 Delivery O2 Flow Rate FiO2 08/23/24 21:34 163/94 08/23/24 21:00 97.8 103 16 94 97.8 08/23/24 20:30 21 08/23/24 19:19 Room Air* 0 Total Intake and Output 08/22/24 08/22/24 08/23/24 15:00 23:00 07:00 Intake Total 50 ml 800 ml 500 ml Output Total 600 ml 1000 ml Balance 50 ml 200 ml -500 ml medications Current Medications Medications Dose Ordered Sig/Gaston Route Start Time Stop Time Status Last Admin Dose Admin Acetaminophen/ Hydrocodone Bitart 1 tab Q4HP PRN PO 08/20/24 13:30 08/21/24 20:06 1 TAB Ondansetron HCl 4 mg Q4HP PRN IV 08/20/24 13:30 Acetaminophen 650 mg Q6HP PRN PO 08/20/24 13:30 08/21/24 23:03 650 MG Nitroglycerin 0.4 mg Q5MINP PRN SL 08/20/24 13:30 Morphine Sulfate 2 mg Q30M PRN IV 08/20/24 13:30 Ceftriaxone Sodium 50 ml @ 100 mls/hr DAILY@09 IV 08/21/24 09:00 08/23/24 09:28 100 MLS/HR Pantoprazole Sodium 40 mg BID IV 08/22/24 10:00 08/23/24 09:28 40 MG Sucralfate 1 gm BID@0600,2200 PO 08/22/24 06:00 08/23/24 06:36 1 GM Docusate Sodium 100 mg DAILYPRN PRN PO 08/21/24 23:15 Albuterol 2.5 mg Q6HWA NEB 08/22/24 18:00 08/23/24 19:19 2.5 MG Ipratropium [place] 0.5 mg Q6HWA NEB 08/22/24 18:00 08/23/24 19:19 0.5 MG Fluticasone Propionate 50 mcg Q12HR PRN EACHNOSTRI 08/22/24 22:45 08/23/24 21:26 50 MCG Hydralazine HCl 10 mg Q6HP PRN IV 08/23/24 21:15 objective General Appearance: Alert, Oriented X3, Cooperative, mild distress, Other (weakness) HEENT: Atraumatic, PERRLA, Other (dry mucous membr) Respiratory: Clear to auscultation, Normal air movement, Other (short of breath at rest and with activity) Cardiovascular: Regular rate, Normal S1, Normal S2 Abdominal: Normal bowel sounds, Soft, No tenderness, No hepatospenomegaly Extremities: No clubbing, No cyanosis, No edema, Normal pulses Skin: No rashes, No breakdown, No significant lesion Neuro: Normal gait, Normal speech Psych/Mental Status: Mental status NL, Mood NL laboratory and microbiology Laboratory Tests 08/23/24 11:30 Test 08/23/24 11:30 Range/Units Serum Glucose 93 74-106 mg/dL Problems(with codes): (1) Sepsis due to gram-negative UTI (2) Severe anemia (3) Positive occult stool blood test (4) Gram negative sepsis (5) GI bleed Prognosis Plan I will keep the patient NPO after midnight I will re-evaluate him to see if he is stable for an endoscopy in a.m. and if he is agreeable Patient is refused his Protonix and Carafate last night Continue IV antibiotics Continue supportive care Patient's H&H is stable and no active GI bleeding is noted Plan discussed with: Other (None) CC Plasma Assessment Blood Product Administration S: [id number] CLARENCE COX MD Aug 23, 2024 22:56
[2024-08-24 08:00] VITALS: PULSE 88; RESP 20
[2024-08-24 08:53] VITALS: BP 136/81; PULSE 88; RESP 20; TEMP 98; O2SAT 96
[2024-08-24 10:00] VITALS: O2SAT 0; O2SAT 96
--- NOTE | 2024-08-24 10:01 | DVHPN2 ---
Progress Note - Dictate Date Seen: Aug 24, 2024 Medical Necessity Reason Pt with a Central, PICC or Fol: No Subjective Patient is clinically stable today Is ambulating He denies nausea vomiting abdominal pain or GI bleed Patient continues to be noncompliant with medical treatment and management There was no nausea vomiting or active GI bleeding Urine culture was positive for Citrobacter koseri Patient has been seen by urology consult vital signs Vital Sign Date Time Temp Pulse Resp B/P (MAP) Pulse Ox O2 Delivery O2 Flow Rate FiO2 08/24/24 08:53 98.0 88 20 136/81 (99) 96 98.0 08/23/24 20:30 21 08/23/24 20:00 Nasal Cannula* 2 Total Intake and Output 08/23/24 08/23/24 08/24/24 14:59 22:59 06:59 Intake Total 50 ml 700 ml 400 ml Balance 50 ml 700 ml 400 ml medications Current Medications Medications Dose Ordered Sig/Gaston Route Start Time Stop Time Status Last Admin Dose Admin Acetaminophen/ Hydrocodone Bitart 1 tab Q4HP PRN PO 08/20/24 13:30 08/21/24 20:06 1 TAB Ondansetron HCl 4 mg Q4HP PRN IV 08/20/24 13:30 Acetaminophen 650 mg Q6HP PRN PO 08/20/24 13:30 08/21/24 23:03 650 MG Nitroglycerin 0.4 mg Q5MINP PRN SL 08/20/24 13:30 Morphine Sulfate 2 mg Q30M PRN IV 08/20/24 13:30 Ceftriaxone Sodium 50 ml @ 100 mls/hr DAILY@09 IV 08/21/24 09:00 08/23/24 09:28 100 MLS/HR Pantoprazole Sodium 40 mg BID IV 08/22/24 10:00 08/23/24 09:28 40 MG Sucralfate 1 gm BID@0600,2200 PO 08/22/24 06:00 08/23/24 06:36 1 GM Docusate Sodium 100 mg DAILYPRN PRN PO 08/21/24 23:15 Albuterol 2.5 mg Q6HWA NEB 08/22/24 18:00 08/23/24 19:19 2.5 MG Ipratropium [place] 0.5 mg Q6HWA NEB 08/22/24 18:00 08/23/24 19:19 0.5 MG Fluticasone Propionate 50 mcg Q12HR PRN EACHNOSTRI 08/22/24 22:45 08/23/24 21:26 50 MCG Hydralazine HCl 10 mg Q6HP PRN IV 08/23/24 21:15 objective General Appearance: Alert, Oriented X3, Cooperative, mild distress, Other (weakness) HEENT: Atraumatic, PERRLA, Other (dry mucous membr) Respiratory: Clear to auscultation, Normal air movement, Other (short of breath at rest and with activity) Cardiovascular: Regular rate, Normal S1, Normal S2 Abdominal: Normal bowel sounds, Soft, No tenderness, No hepatospenomegaly Extremities: No clubbing, No cyanosis, No edema, Normal pulses Skin: No rashes, No breakdown, No significant lesion Neuro: Normal gait, Normal speech Psych/Mental Status: Mental status NL, Mood NL laboratory and microbiology Laboratory Tests 08/23/24 11:30 Test 08/23/24 11:30 Range/Units Serum Glucose 93 74-106 mg/dL Problems(with codes): (1) Sepsis due to gram-negative UTI (2) Severe anemia (3) Positive occult stool blood test Prognosis Plan I discussed the option of an endoscopy today and elective colonoscopy to further evaluate anemia with the patient Patient states he is a man of chaitanya and does not want us to experiment and do unnecessary procedures on him He would like to continue with natural progression of disease and does not want endoscopy or colonoscopy He believes he is not bleeding and he is aware of the risk of an ulcer or cancer but at this time he wants to eat Resume regular diet ; discharge planning as per hospitalist Patient can follow up in my office as an outpatient if he decides to proceed with a any further GI workup Plan discussed with: Patient, Other (Nurse and Dr Barbie pisano) CC Plasma Assessment Blood Product Administration S: [id number] CLARENCE COX MD Aug 24, 2024 10:01
[2024-08-24] MEDS ORDERED: LEVO500T91 PO (12:20)
--- NOTE | 2024-08-24 12:21 | DVHPN2 ---
Reviewed: Care Plan, H&P, Labs, Medications, Previous Orders, Radiology Changes from previous H/P or p: No Changes Eyes: No Pain, No Vision change, No Conjunctivae inflammation, No Eyelid inflammation, No Other, No Redness ENT: No Ear pain, No Ear discharge, No Nose pain, No Nose discharge, No Nose congestion, No Mouth pain, No Mouth swelling, No Throat pain, No Throat swelling, No Other Cardiovascular: No Chest Pain, No Palpitations, No Orthopnea, No Paroxysmal Noc. Dyspnea, No Edema, No Lt Headedness, No Other Respiratory: No Cough, No Dry; Shortness of breath, SOB with excertion; No Wheezing, No Hemoptysis, No Pleuritic Pain, No Sputum, No Other Gastrointestinal: No Nausea, No Vomiting, No Abdominal Pain, No Diarrhea, No Constipation, No Melena, No Hematochezia, No Other Genitourinary: No Dysuria, No Frequency, No Incontinence, No Hematuria, No Retention, No Other Musculoskeletal: No other, No neck pain, No shoulder pain, No arm pain, No back pain, No hand pain, No leg pain, No foot pain Skin: No Rash, No Lesions, No Jaundice, No Bruising, No Other Objective Vitals Vital Signs Date Time Temp Pulse Resp B/P (MAP) Pulse Ox O2 Delivery O2 Flow Rate FiO2 08/24/24 10:00 96 Room Air* 0 21 08/24/24 08:53 98.0 88 20 136/81 (99) 98.0 Intake/Output Intake and Output 08/24/24 07:00 Intake Total 1150 ml Balance 1150 ml Intake Oral 1100 ml IV Total 50 ml # Voids 5 # Bowel Movements 1 Medications Current Medications Medications Dose Ordered Sig/Gaston Route Start Time Stop Time Status Last Admin Dose Admin Acetaminophen/ Hydrocodone Bitart 1 tab Q4HP PRN PO 08/20/24 13:30 08/21/24 20:06 1 TAB Ondansetron HCl 4 mg Q4HP PRN IV 08/20/24 13:30 Acetaminophen 650 mg Q6HP PRN PO 08/20/24 13:30 08/21/24 23:03 650 MG Nitroglycerin 0.4 mg Q5MINP PRN SL 08/20/24 13:30 Morphine Sulfate 2 mg Q30M PRN IV 08/20/24 13:30 Ceftriaxone Sodium 50 ml @ 100 mls/hr DAILY@09 IV 08/21/24 09:00 08/23/24 09:28 100 MLS/HR Pantoprazole Sodium 40 mg BID IV 08/22/24 10:00 08/23/24 09:28 40 MG Sucralfate 1 gm BID@0600,2200 PO 08/22/24 06:00 08/23/24 06:36 1 GM Docusate Sodium 100 mg DAILYPRN PRN PO 08/21/24 23:15 Albuterol 2.5 mg Q6HWA NEB 08/22/24 18:00 08/23/24 19:19 2.5 MG Ipratropium [place] 0.5 mg Q6HWA NEB 08/22/24 18:00 08/23/24 19:19 0.5 MG Fluticasone Propionate 50 mcg Q12HR PRN EACHNOSTRI 08/22/24 22:45 08/23/24 21:26 50 MCG Hydralazine HCl 10 mg Q6HP PRN IV 08/23/24 21:15 Laboratory Results Laboratory Tests 08/23/24 11:30 Urinalysis Test 08/20/24 17:00 Urine Color Dark-brown (Yellow) Urine Clarity Ex.turbid (Clear) Urine pH 6.0 (5.0-9.0) Urine Specific [place] 1.014 (1.001-1.035) Urine Protein 3+ (Negative) H Urine Ketones Negative (Negative) Urine Blood 2+ /uL (Negative) H Urine Nitrite Negative (Negative) Urine Bilirubin Negative (Negative) Urine Urobilinogen Normal mg/dL (Negative) Urine Leukocyte Esterase 3+ /uL (Negative) Urine RBC 23 /hpf (0 - 3) Urine WBC Clumps Present /hpf (None Seen) Urine Microscopic WBC 3653 /HPF (0-3) H Urine Squamous Epithelial Cells None seen /hpf (<5) Urine Bacteria None seen /hpf (None Seen) Urine Mucus Few (None Seen) Urine Glucose Normal mg/dL (Normal) Microbiology Microbiology Date/Time Source Procedure Growth Status 08/21/24 15:38 Blood Blood Culture - Preliminary NO GROWTH AFTER 48 HOURS OF INCUBATION. Resulted 08/20/24 17:00 Urine - Catheterized Urine Culture - Final Citrobacter koseri Staphylococcus aureus Complete Labs and/or images reviewed: Labs reviewed by me, Image(s) reviewed by me Assessment/Plan Assessment/Plan Septic shock WBC 20 K secondary to urinary tract infection: Blood cultures negative, urine cultures growing Citrobacter , continue Rocephin Acute generalized weakness Severe symptomatic Anemia hemoglobin 5.6 improved to 8.7 after 3 units RBC transfusion GI consult for Dr. Lindsey Ortega to rule out GI causes for anemia, pantoprazole Carafate EGD when stable, patient refused endoscopy BPH: CT abdomen pelvis without contrast enlarged prostate, PSA ordered urology consult Left kidney stone with hydroureteronephrosis: Consult for Dr. Shaw appreciated awaiting Mag 3 scan with Lasix washout showed nonfunctioning left kidney and unremarkable right kidney Acute Hypotension Hypertension Nonfunctioning left kidney [facility]ITO on CKD consult for Nephrology appreciated Moderate malnutrition Time spent 50 minutes Advanced care planning time 20 minutes Patient is full code Lives in the backyard of his grandson Plan discussed with: Patient Date of Service: Aug 24, 2024 Billing Provider: MAGDIEL DAO MD Common Visit Codes: [id number] INP/OBS CARE(HIGH) MAGDIEL DAO MD Aug 24, 2024 12:21
[2024-08-24] MEDS ORDERED: SUCR1TAB31 OR (12:23)
[2024-08-24] MEDS ORDERED: FERR-7 PO (12:23)
[2024-08-24] MEDS ORDERED: PANT40T PO (12:23)
[2024-08-24 12:26] VITALS: BP 165/95; PULSE 89; RESP 17; TEMP 98.1; O2SAT 93
--- NOTE | 2024-08-24 12:29 | DVHDS2 ---
Discharge Summary Date of Admission Aug 20, 2024 at 13:29 Date of Discharge: Aug 24, 2024 Admitting Diagnosis Generalized weakness Wounds: None Labs/Diagnostic Data: Laboratory Results Test 08/23/24 11:30 08/22/24 12:51 08/22/24 05:08 08/21/24 07:11 White Blood Count 11.4 10^3/uL (4.4-10.8) Red Blood Count 3.11 10^6/uL (4.5-5.90) Hemoglobin 9.0 g/dL (13.5-17.5) Hematocrit 27.9 % (41.0-53.0) Mean Corpuscular Volume 89.6 fL (80.0-100.0) Mean Corpuscular Hemoglobin 29.0 pg (28.0-32.0) Mean Corpuscular Hemoglobin Concent 32.4 g/dL (32.0-36.0) Red Cell Distribution Width 19.7 % (11.8-14.3) Platelet Count 395 10^3/uL (140-450) Mean Platelet Volume 7.7 fL (6.9-10.8) Neutrophils (%) (Auto) % (37.0-80.0) Lymphocytes (%) (Auto) % (10.0-50.0) Monocytes (%) (Auto) % (0.0-12.0) Basophils (%) (Auto) % (0.0-2.0) Neutrophils # (Auto) 10 ^3/uL (1.6-8.6) Lymphocytes # (Auto) 10 ^3/uL (0.4-5.4) Monocytes # (Auto) 10 ^3/uL (0-1.3) Differential Total Cells Counted 100.0 (100) Neutrophils % (Manual) 82 (37.0-80.0) Band Neutrophils % (Manual) 7 Lymphocytes % (Manual) 8 (10.0-50.0) Monocytes % (Manual) 1 (0-12) Eosinophils % (Manual) 1 (0-7) Basophils % (Manual) 0 (0.0-2.0) Metamyelocytes % (manual) 1 Myelocytes % (Manual) 0 Promyelocytes % (Manual) 0 Blast Cells % (Manual) 0 Reactive Lymphocytes 0 Platelet Estimate Adequate Sodium Level 140 mmol/L (136-145) Potassium Level 4.1 mmol/L (3.5-5.1) Chloride Level 106 mmol/L (98-107) Carbon Dioxide Level 26 mmol/L (20-31) Anion Gap 8 (5-15) Blood Urea Nitrogen 27 mg/dL (9-23) Creatinine 1.87 mg/dL (0.700-1.30) Glomerular Filtration Rate Calc 37 mL/min (>90) BUN/Creatinine Ratio 14.4 (10.0-20.0) Serum Glucose 93 mg/dL (74-106) Calcium Level 9.5 mg/dL (8.7-10.4) Total Bilirubin 1.5 mg/dL (0.2-1.0) Aspartate Amino Transferase (AST) 27 U/L (13-40) Alanine Aminotransferase (ALT) 41 U/L (7-40) Alkaline Phosphatase 60 U/L (46-116) Total Protein 6.9 g/dL (5.7-8.2) Albumin 4.4 g/dL (3.2-4.8) Free Prostate Specific Antigen 1.23 ng/mL (N/A) Percent Free Prostate Specific Ag 19.8 % (.) Prostate Specific Antigen Total 6.2 ng/mL (0.0-4.0) Phosphorus Level 4.2 mg/dL (2.4-5.1) Magnesium Level 2.6 mg/dL (1.6-2.6) Prostate Specific Antigen 4.44 ng/mL (0.0-4.0) Vitamin B12 Level 438 pg/mL (211-911) Vitamin D 25-Hydroxy 37.5 ng/mL (30.0-100) Folic Acid 11.68 ng/mL (>5.38) Parathyroid Hormone (Intact) 119.4 pg/mL (18.4-80.1) Iron Level 30 ug/dL (65-175) Total Iron Binding Capacity 377 ug/dL (250-425) Percent Iron Saturation 8.0 % (20-55) Test 08/20/24 23:11 08/20/24 17:00 08/20/24 10:05 Stool Occult Blood Positive (Negative) Stool Occult Blood Sample #3 (Negative) Urine Color Dark-brown (Yellow) Urine Clarity Ex.turbid (Clear) Urine pH 6.0 (5.0-9.0) Urine Specific [place] 1.014 (1.001-1.035) Urine Protein 3+ (Negative) Urine Ketones Negative (Negative) Urine Blood 2+ /uL (Negative) Urine Nitrite Negative (Negative) Urine Bilirubin Negative (Negative) Urine Urobilinogen Normal mg/dL (Negative) Urine Leukocyte Esterase 3+ /uL (Negative) Urine RBC 23 /hpf (0 - 3) Urine WBC Clumps Present /hpf (None Seen) Urine Microscopic WBC 3653 /HPF (0-3) Urine Squamous Epithelial Cells None seen /hpf (<5) Urine Bacteria None seen /hpf (None Seen) Urine Mucus Few (None Seen) Urine Glucose Normal mg/dL (Normal) Large Platelets Few Anisocytosis (manual) Slight Microcytosis Slight Ovalocytes Few Troponin I High Sensitivity 15 ng/L (</=54) Other Laboratory Tests 08/23/24 11:30 Brief Hx & Hospital Course: 4-year-old male with multiple medical problems including BPH hypotension nonfunctioning left kidney chronic kidney disease came in for generalized weakness and shortness of breaths. Found to have septic shock with a WBC 20 K secondary to urinary tract infection treated with Rocephin blood cultures negative urine cultures growing Citrobacter also had symptomatic anemia with a hemoglobin 5.6 improved to 8.7 after 3 units RBC. GI consult by Dr. Lindsey Ortega placed on pantoprazole and Carafate. He was advised EGD and colonoscopy by Dr. Lindsey Ortega but patient refused stating "nature will take its own course" he is alert and able to make his own decision urology consult by Dr. 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 Also seen by ruby developer. Patient insisting to be discharged home today. Discharged home. Prescription transmitted to pharmacy general condition poor. Patient has been noncompliant and rude with the staff members and physicians during his stay Consults/Reason for consult GI Dr. Lindsey Ortega Nephrology Urology Operations or Procedures CT abdomen pelvis without contrast Condition at Discharge: Fair Final Diagnosis/Problems List Septic shock WBC 20 K secondary to urinary tract infection: Blood cultures negative, urine cultures growing Citrobacter , continue Rocephin Acute generalized weakness Severe symptomatic Anemia hemoglobin 5.6 improved to 8.7 after 3 units RBC transfusion GI consult for Dr. Lindsey Ortega to rule out GI causes for anemia, pantoprazole Carafate EGD when stable, patient refused endoscopy BPH: CT abdomen pelvis without contrast enlarged prostate, PSA ordered urology consult Left kidney stone with hydroureteronephrosis: Consult for Dr. Shaw appreciated awaiting Mag 3 scan with Lasix washout showed nonfunctioning left kidney and unremarkable right kidney Acute Hypotension Hypertension Nonfunctioning left kidney [facility] MARITO on CKD consult for Nephrology appreciated Moderate malnutrition Discharge Disposition: Home Discharge Instruct/Medications Diet: Regular Activity: Light activity Follow Up/Referral: [facility] Follow up With the GI Dr. Lindsey Ortega in two weeks for endoscopy if you changed your mind Medications: Pantoprazole Carafate Iron Levaquin Transmitted to pharmacy Discharge Statement: "Patient was advised to return to the ER or call 911 if any headaches, dizziness, shortness of breath, chest pain, abdominal pain, bleeding, fevers, or worsening of medical condition. Patient was counseled about treatment plan, medications, possible side effects, patientverbalized understanding. All questions were answered to the best of my ability. This discharge took greater then 30 minutes in planning, reviewing documentation, counseling the patient, and discussing with other team members." ASSESSMENT ASSESSMENT Hospital Course Marginal improvement Assessment Septic shock WBC 20 K secondary to urinary tract infection: Blood cultures negative, urine cultures growing Citrobacter , continue Rocephin Acute generalized weakness Severe symptomatic Anemia hemoglobin 5.6 improved to 8.7 after 3 units RBC transfusion GI consult for Dr. Lindsey Ortega to rule out GI causes for anemia, pantoprazole Carafate EGD when stable, patient refused endoscopy BPH: CT abdomen pelvis without contrast enlarged prostate, PSA ordered urology consult Left kidney stone with hydroureteronephrosis: Consult for Dr. Shaw appreciated awaiting Mag 3 scan with Lasix washout showed nonfunctioning left kidney and unremarkable right kidney Acute Hypotension Hypertension Nonfunctioning left kidney [facility] MARITO on CKD consult for Nephrology appreciated Moderate malnutrition Date of Service: Aug 24, 2024 Billing Provider: MAGDIEL DAO MD Common Visit Codes: [id number] DISCH DAY >30min MAGDIEL DAO MD Aug 24, 2024 12:29
--- NOTE | 2024-08-24 14:26 | DVHPN2 ---
Progress Note Date Seen: Aug 24, 2024 Medical Necessity Reason Pt with a Central, PICC or Fol: No Subjective Patient reports: No new complaints Objective vital signs Vital Sign Date Time Temp Pulse Resp B/P (MAP) Pulse Ox O2 Delivery O2 Flow Rate FiO2 08/24/24 12:26 98.1 89 17 165/95 (118) 93 98.1 08/24/24 10:00 Room Air* 0 21 Total Intake and Output 08/23/24 08/23/24 08/24/24 15:00 23:00 07:00 Intake Total 50 ml 700 ml 400 ml Balance 50 ml 700 ml 400 ml medications Current Medications Medications Dose Ordered Sig/Gaston Route Start Time Stop Time Status Last Admin Dose Admin Acetaminophen/ Hydrocodone Bitart 1 tab Q4HP PRN PO 08/20/24 13:30 08/21/24 20:06 1 TAB Ondansetron HCl 4 mg Q4HP PRN IV 08/20/24 13:30 Acetaminophen 650 mg Q6HP PRN PO 08/20/24 13:30 08/21/24 23:03 650 MG Nitroglycerin 0.4 mg Q5MINP PRN SL 08/20/24 13:30 Morphine Sulfate 2 mg Q30M PRN IV 08/20/24 13:30 Ceftriaxone Sodium 50 ml @ 100 mls/hr DAILY@09 IV 08/21/24 09:00 08/23/24 09:28 100 MLS/HR Pantoprazole Sodium 40 mg BID IV 08/22/24 10:00 08/23/24 09:28 40 MG Sucralfate 1 gm BID@0600,2200 PO 08/22/24 06:00 08/23/24 06:36 1 GM Docusate Sodium 100 mg DAILYPRN PRN PO 08/21/24 23:15 Albuterol 2.5 mg Q6HWA NEB 08/22/24 18:00 08/23/24 19:19 2.5 MG Ipratropium [place] 0.5 mg Q6HWA NEB 08/22/24 18:00 08/23/24 19:19 0.5 MG Fluticasone Propionate 50 mcg Q12HR PRN EACHNOSTRI 08/22/24 22:45 08/23/24 21:26 50 MCG Hydralazine HCl 10 mg Q6HP PRN IV 08/23/24 21:15 Examination Gen: NAD Lungs: bilateral air entry, no rales Heart: RRR, normal S1 and S2 Ext: No edema Neuro: A&Ox3 laboratory and microbiology Laboratory Tests 08/23/24 11:30 Test 08/23/24 11:30 Range/Units Serum Glucose 93 74-106 mg/dL Microbiology Date/Time Source Procedure Growth Status 08/21/24 15:38 Blood Blood Culture - Preliminary NO GROWTH AFTER 48 HOURS OF INCUBATION. Resulted 08/20/24 17:00 Urine - Catheterized Urine Culture - Final Citrobacter koseri Staphylococcus aureus Complete Labs and/or images reviewed: Labs reviewed by me Problem List/Assessment/Plan Problem List/Assessment/Plan IMP Acute kidney injury superimposed Chronic Kidney Disease secondary hemodynamic mediated Urinary obstruction Left hydroureteronephrosis Atrophic left kidney Pyelonephritis Nephrolithiasis BPH Anemia due to blood loss Hypertension REC No new labs today Strict I&Os Blood pressure control GI on case Urology on case Avoidance of nephrotoxins. Once discharged follow up as outpt within 2 weeks Plan discussed with: Patient CC Plasma Assessment Blood Product Administration S: [id number] CIRO SOUZA Aug 24, 2024 14:26
[2024-08-24 14:49] VITALS: BP 163/94
[2024-08-25] MEDS ORDERED: METO-158 PO (23:52)
[2024-08-25] MEDS ORDERED: AMLO1TAB22 PO (23:52)
== END 2024-08-24 15:45 | disposition home or self-care (01) | DRG 871 ==
LOC: ER 09:31 → EDBD 09:31 → OVERFLOW 13:29 → WEST WING 22:45
PROVIDERS: ADMIT Family Medicine; ATTEND Family Medicine
PROC: 30233N1 Transfusion of Nonautologous Red Blood Cells into Peripheral Vein, Percutaneous Approach (ICD-10-PCS; principal; 2024-08-20)
DX: A41.50 Gram-negative sepsis, unspecified (principal); R65.21 Severe sepsis with septic shock; K92.2 Gastrointestinal hemorrhage, unspecified; N17.9 Acute kidney failure, unspecified; N13.6 Pyonephrosis; E44.0 Moderate protein-calorie malnutrition; N18.9 Chronic kidney disease, unspecified; N40.1 Benign prostatic hyperplasia with lower urinary tract symptoms; I13.10 Hypertensive heart and chronic kidney disease without heart failure, with stage 1 through stage 4 chronic kidney disease, or unspecified chronic kidney disease; N26.1 Atrophy of kidney (terminal); D50.0 Iron deficiency anemia secondary to blood loss (chronic); Z90.13 Acquired absence of bilateral breasts and nipples; Z93.3 Colostomy status; Z79.899 Other long term (current) drug therapy; Z87.442 Personal history of urinary calculi; Z87.440 Personal history of urinary (tract) infections; Z91.199 Patient's noncompliance with other medical treatment and regimen due to unspecified reason; Z68.29 Body mass index [BMI] 29.0-29.9, adult
CPT/HCPCS: 36415; 36430; 71045; 71250; 74176; 78707; 80048; 80053; 81001; 82270; 82306; 82607; 82746; 83540; 83550; 83735; 83970; 84100; 84153; 84154; 84484; 85007; 85014; 85018; 85027; 86850; 86900; 86901; 86920; 87040; 87086; 87088; 87186; 93005; 94640; 99291; 99292; G0378; J2470

== ENCOUNTER 2024-08-25 13:40 | Inpatient (IN) | payer OTHER, MEDICARE, MEDICAID ==
[~2024-08-25] VITALS: Ht 175.3 cm; Wt 97.0 kg
[~2024-08-25 13:40] MED LIST: AML5T PO; FERR-7 PO; LEVO500T91 PO; METO25TA5 PO; PANT40T PO; SUCR1TAB31 OR
--- NOTE | 2024-08-25 14:07 | ECG ---
[facility] Test Date: 2024-08-25 Test Time: 13:54:46 Pat Name: RENAE GALDAMEZ Department: ER Room: 0294T Gender: M Ward Service Supervisor: DEBO : 1950 Requested By: BEBETO WEISS Order Number: [id number] Reading MD: Prateek Torres Measurements Intervals [place] Rate: 75 P: 40 [place]: 173 QRS: -29 QRSD: 105 T: 113 QT: 461 QTc: 515 Interpretive Statements Sinus rhythm Borderline left axis deviation Probable anteroseptal infarct, old Abnormal T, consider ischemia, lateral leads Prolonged QT interval Electronically Signed On 08-29-2024 20:47:50 PDT by Prateek Torres Please click the below link to view image of tracing.
--- NOTE | 2024-08-25 14:12 | ED.PDOC ---
GI ASSESSMENT Chief Complaint: Abdominal Pain Time Seen by MD: 14:04 Reviewed Notes: Nurses Notes, Medications, Allergies Allergies: Coded Allergies: NO KNOWN ALLERGIES (Unverified , 08/20/24) Home Meds Active Scripts Ferrous Sulfate (Iron) 325 Mg Tab, 325 MG PO BID, #60 TAB Prov:MAGDIEL DAO MD 08/24/24 Sucralfate (CARAFATE) 1 Gm Tab, 1 GM OR QID, #120 TAB Prov:MAGDIEL DAO MD 08/24/24 Pantoprazole Sodium Sesquihydr (Pantoprazole Sodium) 40 Mg Tab, 40 MG PO BID, # 60 TAB Prov:MAGDIEL DAO MD 08/24/24 Levofloxacin Hemihydrate (LEVAQUIN 500 MG) 500 Mg Tab, 1 TAB PO DAILY, #7 TAB Prov:MAGDIEL DAO MD 08/24/24 Reported Medications Amlodipine Besylate (NORVASC TABLET) 5 Mg Tb, 1 TAB PO DAILY, #30 TAB 5 Refills 08/20/24 Metoprolol Tartrate (Metoprolol Tartrate) 25 Mg Tab, 25 MG PO, TAB 08/20/24 Information Source: Patient Mode of Arrival: Ambulatory Timing: Weeks Duration: Since onset Prehospital treatment: None Quality: None Vomitus: None Stool: Impaction Severity: Moderate Recent Hx of: None Pain Location: Diffuse Modifying Factors: Nothing Associated sign and symptoms: Constipation, Abdominal Pain Past Medical History PAST MEDICAL HISTORY: Anemia Surgical History: Denies all surgeries Family History Family History: Reviewed,noncontributory to illness, Unknown Social History Smoker: Non-Smoker Alcohol: Denies ETOH Use Drugs: Denies Drug Use Lives In: Home Gastrointestinal: reports: abdominal pain, constipated All Other Systems: Reviewed and Negative ( PER HPI) Physical Exam General Appearance: No Apparent Distress, Normal HEENT: Normal ENT Inspection, Pharynx Normal Neck: Full Range of Motion, Non-Tender, Normal, Normal Inspection Respiratory: Chest Non-Tender, Lungs Clear, No Accessory Muscle Use, No Respiratory Distress, Normal Breath Sounds Cardiovascular: No Edema, No Murmur, No Gallop, Normal Peripheral Pulses, Regular Rate/Rhythm Breast Exam: Deferred Gastrointestinal: No Organomegaly, Non Tender, No Pulsatile Mass, Normal Bowel Sounds, Soft Genitalia: Deferred Pelvic: Deferred Rectal: Deferred Extremities: No calf tenderness, Normal capillary refill, Normal inspection, Normal range of motion, Non-tender, No pedal edema Musculoskeletal : Apperance: Normal Neurologic: Alert, e business specialist II-XII nml as Tested, No Motor Deficits, Normal Affect, Normal Mood, No Sensory Deficits Cerebellar Function: Normal Reflexes: Normal Skin: Dry, Normal Color, Warm Lymphatic: No Adenopathy Was a procedure done? Was a procedure done?: No GI differential Dx Differential Diagnosis: Bowel Obstruction, Constipation, Diverticular disease, Inflammatory BD, Ischemic Bowel X-Ray, Labs, Meds, VS Vital Signs Date Time Temp Pulse Resp B/P (MAP) Pulse Ox O2 Delivery O2 Flow Rate FiO2 08/25/24 14:07 98.1 77 18 121/64 (83) 96 98.1 08/25/24 13:54 75 Time of 1ST Reevaluation: 14:34 Reevaluation 1ST: Unchanged Patient Education/Counseling: Diagnosis, Treatment Family Education/Counseling: No Family Present Departure 1 Departure Time of Disposition: 16:04 Critical Care Note Critical Care Time?: No Stability Stability form required: No Heart Score Heart Score: Heart Score Response (Comments) Value History N/A 0 EKG N/A 0 Age N/A 0 Risk Factors N/A 0 Troponin N/A 0 Total 0 I personally scribed for BEBETO WEISS MD ([email or web address]) on 08/25/24 at 14:12. Electronically submitted by Alexa Alvares ([email or web address]). I personally scribed for BEBETO WEISS MD ([email or web address]) on 08/25/24 at 14:31. Electronically submitted by Alexa Alvares ([email or web address]). BEBETO WEISS MD Aug 25, 2024 14:12
[2024-08-25 15:00] LABS: Urine Bacteria None Seen /hpf (None Seen)
[2024-08-25 15:13] LABS: Urine Blood Negative /uL (Negative); Urine Clarity Clear (Clear); Urine Color Yellow (Yellow); Urine Protein, UAD 1+ (Negative); Urine Specific Gravity 1.016 (1.001-1.035); Urine Squamous Epithelial Cell FEW /hpf (<5); Urine Urobilinogen Normal (Negative); Urine WBC 105 /HPF (0-3)
--- NOTE | 2024-08-25 15:36 | ED.PDOC ---
GI ASSESSMENT HPI Comments 74 year old male presents to the ED with chief complaint of abdominal bloating and generalized weakness. Patient reports that he has been experiencing diffuse abdominal pain and bloating for the past 2 weeks along with associated generalized weakness, SOB with exertion, and dysuria. Patient relays that he was recently discharged from [facility] yesterday for anemia, receiving 3 bags of blood transfusions. Patient states his bloating worsens after eating. Patient denies any nausea, vomiting, diarrhea, hematuria, or chest pain. Chief Complaint: Abdominal Pain Time Seen by MD: 15:35 Primary Care Provider: UNKNOWN Reviewed Notes: Nurses Notes, Medications, Allergies Allergies: Coded Allergies: NO KNOWN ALLERGIES (Unverified , 08/20/24) Home Meds Active Scripts Ferrous Sulfate (Iron) 325 Mg Tab, 325 MG PO BID, #60 TAB Prov:MAGDIEL DAO MD 08/24/24 Sucralfate (CARAFATE) 1 Gm Tab, 1 GM OR QID, #120 TAB Prov:MAGDIEL DAO MD 08/24/24 Pantoprazole Sodium Sesquihydr (Pantoprazole Sodium) 40 Mg Tab, 40 MG PO BID, #60 TAB Prov:MAGDIEL DAO MD 08/24/24 Levofloxacin Hemihydrate (LEVAQUIN 500 MG) 500 Mg Tab, 1 TAB PO DAILY, #7 TAB Prov:MAGDIEL DAO MD 08/24/24 Reported Medications Amlodipine Besylate (NORVASC TABLET) 5 Mg Tb, 1 TAB PO DAILY, #30 TAB 5 Refills 08/20/24 Metoprolol Tartrate (Metoprolol Tartrate) 25 Mg Tab, 25 MG PO, TAB 08/20/24 Information Source: Patient Mode of Arrival: Ambulatory Timing: Weeks Duration: Since onset Prehospital treatment: None Quality: None Vomitus: None Stool: Normal Severity: Moderate Recent: None Recent Hx of: None Pain Location: None Modifying Factors: Nothing Past Medical History PAST MEDICAL HISTORY: Anemia Past Medical History (Other): BPH, CKD, nonfunctioning left kidney, kidney stone Surgical History: Denies all surgeries Family History Family History: Reviewed,noncontributory to illness, Unknown Social History Smoker: Non-Smoker Alcohol: Denies ETOH Use Drugs: Denies Drug Use Lives In: Home Constitutional: reports: weakness; denies: chills, diaphoresis, fatigue, fever, malaise, sweats, others EENTM: denies: blurred vision, double vision, ear bleeding, ear discharge, ear drainage, ear pain, ear ringing, eye pain, eye redness, hearing loss, mouth pain, mouth swelling, nasal discharge, nose bleeding, nose congestion, nose pain, photophobia, tearing, throat pain, throat swelling, voice changes, others Respiratory: reports: SOB with excertion; denies: cough, hemoptysis, orthopnea, SOB at rest, shortness of breath, stridor, wheezing, others Cardiovascular: denies: chest pain, dizzy spells, diaphoresis, Dyspnea on exertion, edema, irregular heart beat, left arm pain, lightheadedness, pal pitations, PND, syncope, others Gastrointestinal: reports: abdominal pain; denies: abdomen distended, blood streaked bowels, constipated, diarrhea, dysphagia, difficulty swallowing, hematemesis, melena, nausea, poor appetite, poor fluid intake, rectal bleeding, rectal pain, vomiting, others Genitourinary: reports: dysuria; denies: burning, flank pain, frequency, hematuria, incontinence, penile discharge, penile sore, pain, testicle pain, testicle swelling, urgency, others Neurological: denies: dizziness, fainting, headache, left sided numbness, left sided weakness, numbness, paresthesia, pre-existing deficit, right sided numbness, right sided weakness, seizure, speech problems, tingling, tremors, weakness, others Musculoskeletal: denies: back pain, gout, joint pain, joint swelling, muscle pain, muscle stiffness, neck pain, others Integumetry: denies: bruises, change in color, change in hair/nails, dryness, laceration, lesions, lumps, rash, wounds, others Allergic/Immunocompromised: denies: Difficulty Healing, Frequent Infections, Hives, Itching, others Hematologic/Lymphatic: denies: anemia, blood clots, easy bleeding, easy bruising, swollen glands, others Endocrine: denies: excessive hunger, excessive sweating, excessive thirst, excessive urination, flushing, intolerance to cold, intolerance to heat, unexplained weight gain, unexplained weight loss, others Psychiatric: denies: anxiety, bipolar disorder, depression, hopeless, panic disorder, schizophrenia, sleepless, suicidal, others All Other Systems: Reviewed and Negative Physical Exam General Appearance: No Apparent Distress, Obese HEENT: Other (Pupils and face symmetric. Moist mucous membranes.) Neck: Full Range of Motion, Normal Inspection Respiratory: Lungs Clear, No Accessory Muscle Use, No Respiratory Distress, Normal Breath Sounds Cardiovascular: No Edema, No JVD, Regular Rate/Rhythm Breast Exam: Deferred Gastrointestinal: Distended (Moderate diffuse distention), Soft, Other (Mild diffuse tenderness to deep palpation. No rebound or guarding.) Genitalia: Deferred Pelvic: Deferred Rectal: Deferred Extremities: Normal inspection, Normal range of motion, Non-tender, No pedal edema Neurologic: Alert (Oriented x4), Normal Affect, Normal Mood, Other (Ambulatory) Cerebellar Function: NOT DONE Reflexes: NOT DONE Skin: Dry, Pallor, Warm Lymphatic: NOT DONE Was a procedure done? Was a procedure done?: No GI differential Dx Differential Diagnosis: Bowel Obstruction, Constipation, Diverticular disease, Gastroenteritis, Inflammatory BD, Ischemic Bowel, UTI, Electrolyte Imbalance, Food Poisoning, Bacterial, Viral, Impaction, Kidney Stone X-Ray, Labs, Meds, VS Vital Signs Date Time Temp Pulse Resp B/P (MAP) Pulse Ox O2 Delivery O2 Flow Rate FiO2 08/25/24 18:19 98.1 78 19 141/88 (105) 96 98.1 08/25/24 18:19 78 19 96 Room Air 08/25/24 16:52 97.9 74 16 127/75 (92) 95 97.9 08/25/24 14:07 98.1 77 18 121/64 (83) 96 98.1 08/25/24 13:54 75 Lab Test 08/25/24 17:18 08/25/24 16:15 08/25/24 15:00 Range/Units Troponin I High Sensitivity 15 15 </=54 ng/L White Blood Count 10.8 4.4-10.8 10^3/uL Red Blood Count 2.99 L 4.5-5.90 10^6/uL Hemoglobin 8.7 L 13.5-17.5 g/dL Hematocrit 26.9 L 41.0-53.0 % Mean Corpuscular Volume 90.1 80.0-100.0 fL Mean Corpuscular Hemoglobin 29.2 28.0-32.0 pg Mean Corpuscular Hemoglobin Concent 32.5 32.0-36.0 g/dL Red Cell Distribution Width 18.9 H 11.8-14.3 % Platelet Count 431 140-450 10^3/uL Mean Platelet Volume 8.0 6.9-10.8 fL Neutrophils (%) (Auto) 37.0-80.0 % Lymphocytes (%) (Auto) 10.0-50.0 % Monocytes (%) (Auto) 0.0-12.0 % Basophils (%) (Auto) 0.0-2.0 % Neutrophils # (Auto) 1.6-8.6 10 ^3/uL Lymphocytes # (Auto) 0.4-5.4 10 ^3/uL Monocytes # (Auto) 0-1.3 10 ^3/uL Differential Total Cells Counted 100.0 100 Neutrophils % (Manual) 69 37.0-80.0 Band Neutrophils % (Manual) 7 Lymphocytes % (Manual) 10 10.0-50.0 Monocytes % (Manual) 6 0-12 Eosinophils % (Manual) 7 0-7 Basophils % (Manual) 0 0.0-2.0 Metamyelocytes % (manual) 1 Myelocytes % (Manual) 0 Promyelocytes % (Manual) 0 Blast Cells % (Manual) 0 Reactive Lymphocytes 0 Platelet Estimate Adequate Large Platelets Few Anisocytosis (manual) Slight Prothrombin Time 11.6 9.3-11.8 sec Prothrombin Time INR 1.11 0.9-1.15 Activated Partial Thromboplast Time 26.4 24.5-34.5 SEC Sodium Level 140 136-145 mmol/L Potassium Level 4.4 3.5-5.1 mmol/L Chloride Level 105 98-107 mmol/L Carbon Dioxide Level 26 20-31 mmol/L Anion Gap 9 5-15 Blood Urea Nitrogen 24 H 9-23 mg/dL Creatinine 2.11 H 0.700-1.30 mg/dL Glomerular Filtration Rate Calc 32 >90 mL/min BUN/Creatinine Ratio 11.4 10.0-20.0 Serum Glucose 80 74-106 mg/dL Lactic Acid Level 1.4 0.4-2.0 mmol/L Calcium Level 8.9 8.7-10.4 mg/dL Total Bilirubin 1.4 H 0.2-1.0 mg/dL Aspartate Amino Transferase (AST) 17 13-40 U/L Alanine Aminotransferase (ALT) 28 7-40 U/L Alkaline Phosphatase 53 46-116 U/L B-Type Natriuretic Peptide 1607.50 0-100 pg/mL Total Protein 6.4 5.7-8.2 g/dL Albumin 4.1 3.2-4.8 g/dL Urine Color Yellow Yellow Urine Clarity Clear Clear Urine pH 6.0 5.0-9.0 Urine Specific [place] 1.016 1.001-1.035 Urine Protein 1+ H Negative Urine Ketones Negative Negative Urine Blood Negative Negative /uL Urine Nitrite Negative Negative Urine Bilirubin Negative Negative Urine Urobilinogen Normal Negative mg/dL Urine Leukocyte Esterase 2+ Negative /uL Urine RBC 4 0 - 3 /hpf Urine Microscopic WBC 105 H 0-3 /HPF Urine Squamous Epithelial Cells Few <5 /hpf Urine Bacteria None seen None Seen /hpf Urine Glucose Normal Normal mg/dL Current Medications Medications (Trade) Dose Ordered Sig/[place] Route Start Time Stop Time Status Last Admin Ceftriaxone Sodium 50 ml @ 100 mls/hr ONCE ONCE IV 08/25/24 15:30 08/25/24 15:59 DC 08/25/24 18:16 PROCEDURE(s): CXR2 - CHEST TWO VIEWS ROUTINE REASON: sob ORDER NUMBER(s): [id number], ACCESSION NUMBER(s): [id number] EXAM: XY CHEST TWO VIEWS ROUTINE TECHNIQUE: Single frontal chest radiograph CLINICAL HISTORY: sob COMPARISON: None Findings/Impression: Frontal chest radiograph demonstrates no acute osseous or superficial soft tissue abnormalities. The trachea is midline. Borderline cardiomegaly with pulmonary vascular congestion. No pneumothorax, pleural effusions, or consolidations. Linear hyperdensities may reflect superficial foreign bodies. EDURE(s): ABPL - CT AB PEL WO CON-NO ORAL OR IV REASON: abd bloating, sob, constipation ORDER NUMBER(s): [id number], ACCESSION NUMBER(s): [id number] Exam: CT CT AB PEL WO CON-NO ORAL OR IV History: abd bloating, sob, constipation Comparison Study: CT CT AB PEL WO CON-NO ORAL OR IV on DOS: 08/21/24 TECHNIQUE: Multidetector CT of the abdomen was performed from lung bases to pubic symphysis. Imaging was performed without IV contrast. Axial, coronal and sagittal multiplanar reformats were obtained from the axial data set by the technologist. Radiation Dose Information: CT Dose: CTDI volume is 16.73 mGy. Dose-length product is 772.6 mGy*cm FINDINGS: Evaluation of solid organs is limited due to lack of intravenous contrast use. Findings: Lung Bases: No acute or significant lung base finding. Normal heart size. No pericardial effusion. Small right pleural effusion. Liver: The liver is normal in size. No focal lesions. Gallbladder and Biliary Tree: Unremarkable Spleen: Unremarkable Pancreas: The pancreas is grossly normal in appearance. Adrenal Glands: Unremarkable Kidneys: Atrophic left kidney with a 4.6 cm cyst in the left kidney with 22 mm calculus in the renal pelvis. Bladder: Grossly unremarkable for degree of distention. Bowel: The stomach is grossly normal in appearance. Small bowel and colon are normal in caliber and distribution. The appendix is not visualized; however, no secondary findings of acute appendicitis identified. Ascites: Absent Lymphadenopathy: No mesenteric, retroperitoneal or periportal lymphadenopathy. Abdominal Wall and Mesentery: Unremarkable. Vasculature: The visualized abdominal aorta is normal in size and caliber. Evaluation of abdominal and pelvic vessels is limited due to lack of intravenous contrast. Pelvic Organs: Unremarkable Musculoskeletal: No aggressive focal bony lesions, acute fractures or dislocation. Soft tissues: Unremarkable IMPRESSION: 1. Atrophic left kidney with a left renal cyst and a 2.2 cm left renal calculus. 2. No findings of bowel obstruction. Stool throughout the colon. 3. No cholelithiasis . 4. Atrophic left kidney with 4.6 cm left renal cyst and a 2.2 cm renal calculus. 5. Radiation optimization: All CT scans at this facility use at least one of these dose optimization techniques: automated exposure control mA and/or kV adjustment per patient size (includes targeted exams where dose is matched to clinical indication) or iterative reconstruction. X-Ray, Labs, Meds, VS Comment 74-year-old male with a history of anemia, BPH, CKD, kidney stone and nonfunctioning left kidney complaining of abdominal bloating and persistent shortness of breath. Patient was recently admitted for anemia and is status post blood transfusion. Vitals unremarkable Exam remarkable for diffuse abdominal tenderness and distention Rhythm strip independently interpreted by me: Sinus rhythm, rate 75, no ectopy. Chest x-ray Findings/Impression: Frontal chest radiograph demonstrates no acute osseous or superficial soft tissue abnormalities. The trachea is midline. Borderline cardiomegaly with pulmonary vascular congestion. No pneumothorax, pleural effusions, or consolidations. Linear hyperdensities may reflect superficial foreign bodies. CT abdomen and pelvis IMPRESSION: 1. Atrophic left kidney with a left renal cyst and a 2.2 cm left renal calculus. 2. No findings of bowel obstruction. Stool throughout the colon. 3. No cholelithiasis . 4. Atrophic left kidney with 4.6 cm left renal cyst and a 2.2 cm renal calculus. CBC remarkable for hemoglobin 8.7, hematocrit 26.9, metabolic panel remarkable for BUN 24, creatinine 2.11, troponin negative, BNP 1607.5, lactate normal, UA abnormal consistent with UTI Patient treated with the following in the ED: Rocephin 1 g IV, Bumex 1 mg IV On re-evaluation, patient appears comfortable with stable vitals. States he is not in pain. Plan is to admit the patient for IV antibiotics and diuresis Time of 1ST Reevaluation: 16:34 Reevaluation 1ST: Unchanged Patient Education/Counseling: Diagnosis, Treatment Family Education/Counseling: No Family Present Sepsis Sepsis Reasesment Focused Exam Orders: Laboratory Tests 08/25/24 16:15: Lactic Acid Level 1.4 Departure 1 Departure Time of Disposition: 16:04 Impression: Primary Impression: Urinary tract infection Qualified Codes: N39.0 - Urinary tract infection, site not specified Additional Impression: CHF (congestive heart failure) Qualified Codes: I50.9 - Heart failure, unspecified Disposition: ADMITTED INPATIENT Admit to: Tele Condition: Guarded Critical Care Note Critical Care Time?: No Stability Stability form required: No Heart Score Heart Score: Heart Score Response (Comments) Value History N/A 0 EKG N/A 0 Age N/A 0 Risk Factors N/A 0 Troponin N/A 0 Total 0 I personally scribed for TENZIN SMITH MD ([email or web address]) on 08/25/24 at 15:36. Electronically submitted by Maximo Vides ([email or web address]). TENZIN SMITH MD Aug 25, 2024 15:36
--- NOTE | 2024-08-25 16:13 | DVH ---
EXAM: XY CHEST TWO VIEWS ROUTINE TECHNIQUE: Single frontal chest radiograph CLINICAL HISTORY: sob COMPARISON: None Findings/Impression: Frontal chest radiograph demonstrates no acute osseous or superficial soft tissue abnormalities. The trachea is midline. Borderline cardiomegaly with pulmonary vascular congestion. No pneumothorax, pleural effusions, or consolidations. Linear hyperdensities may reflect superficial foreign bodies.
--- NOTE | 2024-08-25 16:24 | DVH ---
Exam: CT CT AB PEL WO CON-NO ORAL OR IV History: abd bloating, sob, constipation Comparison Study: CT CT AB PEL WO CON-NO ORAL OR IV on DOS: 08/21/24 TECHNIQUE: Multidetector CT of the abdomen was performed from lung bases to pubic symphysis. Imaging was performed without IV contrast. Axial, coronal and sagittal multiplanar reformats were obtained fr om the axial data set by the technologist. Radiation Dose Information: CT Dose: CTDI volume is 16.73 mGy. Dose-length product is 772.6 mGy*cm FINDINGS: Evaluation of solid organs is limited due to lack of intravenous contrast use. Findings: Lung Bases: No acute or significant lung base finding. Normal heart size. No pericardial effusion. Small right pleural effusion. Liver: The liver is normal in size. No focal lesions. Gallbladder and Biliary Tree: Unremarkable Spleen: Unremarkable Pancreas: The pancreas is grossly normal in appearance. Adrenal Glands: Unremarkable Kidneys: Atrophic left kidney with a 4.6 cm cyst in the left kidney with 22 mm calculus in the renal pelvis. Bladder: Grossly unremarkable for degree of distention. Bowel: The stomach is grossly normal in appearance. Small bowel and colon are normal in caliber and d istribution. The appendix is not visualized; however, no secondary findings of acute appendicitis id entified. Ascites: Absent Lymphadenopathy: No mesenteric, retroperitoneal or periportal lymphadenopathy. Abdominal Wall and Mesentery: Unremarkable. Vasculature: The visualized abdominal aorta is normal in size and caliber. Evaluation of abdominal a nd pelvic vessels is limited due to lack of intravenous contrast. Pelvic Organs: Unremarkable Musculoskeletal: No aggressive focal bony lesions, acute fractures or dislocation. Soft tissues: Unremarkable IMPRESSION: 1. Atrophic left kidney with a left renal cyst and a 2.2 cm left renal calculus. 2. No findings of bowel obstruction. Stool throughout the colon. 3. No cholelithiasis . 4. Atrophic left kidney with 4.6 cm left renal cyst and a 2.2 cm renal calculus. 5. Radiation optimization: All CT scans at this facility use at least one of these dose optimization te chniques: automated exposure control mA and/or kV adjustment per patient size (includes targeted exa ms where dose is matched to clinical indication) or iterative reconstruction.
[2024-08-25 16:36] LABS: Hematocrit 26.9 % (41.0-53.0); Hemoglobin 8.7 g/dL (13.5-17.5); Mean Corpuscular Hemoglobin 29.2 pg (28.0-32.0); Mean Corpuscular Hgb Conc. 32.5 g/dL (32.0-36.0); Mean Corpuscular Volume 90.1 fL (80.0-100.0); Platelet Count (auto) 431 10^3/uL (140-450); Red Blood Cells 2.99 10^6/uL (4.5-5.90); Red Cell Distribution Width 18.9 % (11.8-14.3); White Blood Cell 10.8 10^3/uL (4.4-10.8)
[2024-08-25 16:43] LABS: Basophils % (manual) 0 (0.0-2.0); Blast Cells 0; Myelocytes % 0; Promyelocytes % 0; Reactive Lymphocytes 0
[2024-08-25 16:53] LABS: INR 1.11 (0.9-1.15); Partial Thromboplastin Time 26.4 SEC (24.5-34.5); Prothrombin Time 11.6 sec (9.3-11.8)
[2024-08-25 16:55] LABS: Alanine Aminotransferase 28 U/L (7-40); Albumin 4.1 g/dL (3.2-4.8); Alkaline Phosphatase 53 U/L (46-116); Anion Gap 9 (5-15); Aspartate Aminotransferase 17 U/L (13-40); BUN/Creatinine Ratio 11.4 (10.0-20.0); Blood Urea Nitrogen 24 mg/dL (9-23); Calcium 8.9 mg/dL (8.7-10.4); Carbon Dioxide 26 mmol/L (20-31); Chloride 105 mmol/L (98-107); Glucose 80 mg/dL (74-106); Potassium 4.4 mmol/L (3.5-5.1); Sodium 140 mmol/L (136-145); Total Protein 6.4 g/dL (5.7-8.2)
[2024-08-25 16:56] LABS: Bilirubin, Total 1.4 mg/dL (0.2-1.0)
[2024-08-25] MEDS: cefTRIAXone 1GM/50ML D5W 50 ML IV ONE (18:16)
[2024-08-25 19:07] LABS: Band Neutrophils % (manual) 7; Lymphocytes % (manual) 10 (10.0-50.0)
[2024-08-25 19:08] LABS: Anisocytosis Slight; Eosinophils % (manual) 7 (0-7); Metamyelocytes % 1; Monocytes % (manual) 6 (0-12); Platelet Estimate Adequate
[2024-08-25 19:09] LABS: Large Platelets FEW
[2024-08-25] MEDS: BUMETANIDE 1mg/4ml VIAL (0.25mg/ml) IV ONE (20:12)
[2024-08-25] MEDS ORDERED: hydrALAZINE HCL 20 MG/ML VL IV PRN (20:45)
[2024-08-25] MEDS ORDERED: ACETAMINOPHEN 325 MG TAB PO PRN (20:45)
[2024-08-25] MEDS ORDERED: DOCUSATE SOD 100 MG CAP PO PRN (20:45)
[2024-08-25] MEDS ORDERED: ONDANSETRON HCL 4 MG/2 ML VIAL IV PRN (20:45)
[2024-08-25] MEDS ORDERED: HYDROcodone-ACET 5/325MG TAB PO PRN (20:45)
[2024-08-25] MEDS ORDERED: NITROGLYCERIN 0.4 MG SL TAB SL PRN (22:00)
--- NOTE | 2024-08-25 22:06 | DVHHP2 ---
History of Present Illness Reason for Visit: Acute exacerbation of congestive heart failure History of Present Illness The patient is a 74-year-old male with past medical history of CKD, BPH, kidney stones, and anemia who presented to [facility] ED with complaint of generalized weakness. Patient reports she has been experiencing abdominal bloating, diffuse abdominal pain, shortness of breaths, chest discomfort, dysuria, getting worse that prompted this visit. Patient was seen and evaluated in the ED, laboratory data shows WBC 10.8, hemoglobin 8.7, hematocrit 26.9, platelets 431, sodium 140, potassium 4.4, BUN 24, creatinine 2.11, glucose 80, GFR 32, total bilirubin one four, BNP 1481.63, troponin 16, blood pressure 149/90, heart rate 74, temperature 98.0 F, O2 saturation 97% on oxygen. Abdomen/pelvis CT revealing atrophic left kidney with a left renal cyst and a 2.2 cm left renal calculus. Patient was started on IV Bumex, Please see medicat ion orders section in the computer. On my assessment, patient denied chest pain, no headache, no dizziness, currently on oxygen, no diaphoresis, no diarrhea, no nausea, no vomiting, no fever, no chills. Patient was admitted for further evaluation and medical management Past Medical History Anemia, BPH, CKD, Nonfunctioning left kidney, Kidney stone Past Surgical History Denies all surgeries Family History Reviewed, noncontributory to the management of this case. Past Social History The patient lives at home, denies smoking, alcohol or illicit drugs abuse. Review of Systems Constitutional: Yes: Weakness; No: Fever, Chills, Sweats, Malaise, Other Eyes: No: Pain, Vision change, Conjunctivae inflammation, Eyelid inflammation, Other, Redness ENT: No: Ear pain, Ear discharge, Nose pain, Nose discharge, Nose congestion, Mouth pain, Mouth swelling, Throat pain, Throat swelling, Other Respiratory: Shortness of breath; No: Cough, Dry, SOB with excertion, Wheezing, Hemoptysis, Pleuritic Pain, Sputum, Wheezing, Other Cardiovascular: No: Chest Pain, Palpitations, Orthopnea, Paroxysmal Noc. Dyspnea, Edema, Lt Headedness, Other Gastrointestinal: Abdominal Pain; No: Nausea, Vomiting, Diarrhea, Constipation, Melena, Hematochezia, Other Genitourinary: Dysuria; No Frequency, No Incontinence, No Hematuria, No Retention, No Other Musculoskeletal: No: other, neck pain, shoulder pain, arm pain, back pain, hand pain, leg pain, foot pain Skin: No: Rash, Lesions, Jaundice, Bruising, Other Neurological: No: Weakness, Numbness, Incoordination, Change in speech, Confusion, Seizures, Other Allergies: Coded Allergies: NO KNOWN ALLERGIES (Unverified , 08/20/24) Medications Current Medications Medications Dose Ordered Sig/[place]aston Route Start Time Stop Time Status Last Admin Dose Admin Ceftriaxone Sodium 50 ml @ 100 mls/hr DAILY@09 IV 08/26/24 09:00 Hydralazine HCl 10 mg Q6HP PRN IV 08/25/24 20:45 Amlodipine Besylate 5 mg DAILY PO 08/26/24 10:00 Sodium Chloride 10 ml Q8HR IV 08/25/24 22:00 Acetaminophen/ Hydrocodone Bitart 1 tab Q4HP PRN PO 08/25/24 20:45 Ondansetron HCl 4 mg Q4HP PRN IV 08/25/24 20:45 Docusate Sodium 100 mg BIDPRN PRN PO 08/25/24 20:45 Multivitamins 1 tab DAILY PO 08/26/24 10:00 Acetaminophen 650 mg Q6HP PRN PO 08/25/24 20:45 Exam Vital Signs Vital Signs Date Time Temp Pulse Resp B/P (MAP) Pulse Ox O2 Delivery O2 Flow Rate FiO2 08/25/24 21:56 98.0 74 19 148/86 (106) 95 98.0 08/25/24 18:19 Room Air General Appearance: Alert, Oriented X3, Cooperative, No acute distress HEENT: Atraumatic, PERRLA, EOMI, Mucous membr. moist/pink Respiratory: Normal air movement Cardiovascular: Regular rate, Normal S1, Normal S2, No murmurs Abdominal: Normal bowel sounds, Soft, No tenderness, No hepatospenomegaly, No masses Extremities: No clubbing, No cyanosis, No edema, Normal pulses, No tenderness/swelling Skin: No rashes, No breakdown, No significant lesion Neuro: Normal speech, Normal tone, Sensation intact, Cranial nerves 3-12 NL, Reflexes 2+, Other (Generalized weakness) Psych/Mental Status: Mental status NL, Mood NL Labs/Xrays Labs Test 08/25/24 20:46 08/25/24 19:16 08/25/24 16:15 08/25/24 15:00 Range/Units B-Type Natriuretic Peptide 1481.63 0-100 pg/mL Troponin I High Sensitivity 16 </=54 ng/L White Blood Count 10.8 4.4-10.8 10^3/uL Red Blood Count 2.99 L 4.5-5.90 10^6/uL Hemoglobin 8.7 L 13.5-17.5 g/dL Hematocrit 26.9 L 41.0-53.0 % Mean Corpuscular Volume 90.1 80.0-100.0 fL Mean Corpuscular Hemoglobin 29.2 28.0-32.0 pg Mean Corpuscular Hemoglobin Concent 32.5 32.0-36.0 g/dL Red Cell Distribution Width 18.9 H 11.8-14.3 % Platelet Count 431 140-450 10^3/uL Mean Platelet Volume 8.0 6.9-10.8 fL Neutrophils (%) (Auto) 37.0-80.0 % Lymphocytes (%) (Auto) 10.0-50.0 % Monocytes (%) (Auto) 0.0-12.0 % Basophils (%) (Auto) 0.0-2.0 % Neutrophils # (Auto) 1.6-8.6 10 ^3/uL Lymphocytes # (Auto) 0.4-5.4 10 ^3/uL Monocytes # (Auto) 0-1.3 10 ^3/uL Differential Total Cells Counted 100.0 100 Neutrophils % (Manual) 69 37.0-80.0 Band Neutrophils % (Manual) 7 Lymphocytes % (Manual) 10 10.0-50.0 Monocytes % (Manual) 6 0-12 Eosinophils % (Manual) 7 0-7 Basophils % (Manual) 0 0.0-2.0 Metamyelocytes % (manual) 1 Myelocytes % (Manual) 0 Promyelocytes % (Manual) 0 Blast Cells % (Manual) 0 Reactive Lymphocytes 0 Platelet Estimate Adequate Large Platelets Few Anisocytosis (manual) Slight Prothrombin Time 11.6 9.3-11.8 sec Prothrombin Time INR 1.11 0.9-1.15 Activated Partial Thromboplast Time 26.4 24.5-34.5 SEC Sodium Level 140 136-145 mmol/L Potassium Level 4.4 3.5-5.1 mmol/L Chloride Level 105 98-107 mmol/L Carbon Dioxide Level 26 20-31 mmol/L Anion Gap 9 5-15 Blood Urea Nitrogen 24 H 9-23 mg/dL Creatinine 2.11 H 0.700-1.30 mg/dL Glomerular Filtration Rate Calc 32 >90 mL/min BUN/Creatinine Ratio 11.4 10.0-20.0 Serum Glucose 80 74-106 mg/dL Lactic Acid Level 1.4 0.4-2.0 mmol/L Calcium Level 8.9 8.7-10.4 mg/dL Total Bilirubin 1.4 H 0.2-1.0 mg/dL Aspartate Amino Transferase (AST) 17 13-40 U/L Alanine Aminotransferase (ALT) 28 7-40 U/L Alkaline Phosphatase 53 46-116 U/L Total Protein 6.4 5.7-8.2 g/dL Albumin 4.1 3.2-4.8 g/dL Urine Color Yellow Yellow Urine Clarity Clear Clear Urine pH 6.0 5.0-9.0 Urine Specific [place] 1.016 1.001-1.035 Urine Protein 1+ H Negative Urine Ketones Negative Negative Urine Blood Negative Negative /uL Urine Nitrite Negative Negative Urine Bilirubin Negative Negative Urine Urobilinogen Normal Negative mg/dL Urine Leukocyte Esterase 2+ Negative /uL Urine RBC 4 0 - 3 /hpf Urine Microscopic WBC 105 H 0-3 /HPF Urine Squamous Epithelial Cells Few <5 /hpf Urine Bacteria None seen None Seen /hpf Urine Glucose Normal Normal mg/dL PATIENT: RENAE GALDAMEZ BACCT: [id number] UNIT: [id number] : 1950 LOC: ER ROOM / BED: / AGE / SEX: 74 / M ADM STATUS: REG ER SERVICE [id number] ORDERING PHYSICIAN: TENZIN SMITH MD PROCEDURE(s): ABPL - CT AB PEL WO CON-NO ORAL OR IV REASON: abd bloating, sob, constipation ORDER NUMBER(s): [id number], ACCESSION NUMBER(s): [id number] Exam: CT CT AB PEL WO CON-NO ORAL OR IV History: abd bloating, sob, constipation Comparison Study: CT CT AB PEL WO CON-NO ORAL OR IV on DOS: 08/21/24 TECHNIQUE: Multidetector CT of the abdomen was performed from lung bases to pubic symphysis. Imaging was performed without IV contrast. Axial, coronal and sagittal multiplanar reformats were obtained from the axial data set by the technologist. Radiation Dose Information: CT Dose: CTDI volume is 16.73 mGy. Dose-length product is 772.6 mGy*cm FINDINGS: Evaluation of solid organs is limited due to lack of intravenous contrast use. Findings: Lung Bases: No acute or significant lung base finding. Normal heart size. No pericardial effusion. Small right pleural effusion. Liver: The liver is normal in size. No focal lesions. Gallbladder and Biliary Tree: Unremarkable Spleen: Unremarkable Pancreas: The pancreas is grossly normal in appearance. Adrenal Glands: Unremarkable Kidneys: Atrophic left kidney with a 4.6 cm cyst in the left kidney with 22 mm calculus in the renal pelvis. Bladder: Grossly unremarkable for degree of distention. Bowel: The stomach is grossly normal in appearance. Small bowel and colon are n ormal in caliber and distribution. The appendix is not visualized; however, no secondary findings of acute appendicitis identified. Ascites: Absent Lymphadenopathy: No mesenteric, retroperitoneal or periportal lymphadenopathy. Abdominal Wall and Mesentery: Unremarkable. Vasculature: The visualized abdominal aorta is normal in size and caliber. Evaluation of abdominal and pelvic vessels is limited due to lack of intravenous contrast. Pelvic Organs: Unremarkable Musculoskeletal: No aggressive focal bony lesions, acute fractures or dislocation. Soft tissues: Unremarkable IMPRESSION: 1. Atrophic left kidney with a left renal cyst and a 2.2 cm left renal calculus. 2. No findings of bowel obstruction. Stool throughout the colon. 3. No cholelithiasis . 4. Atrophic left kidney with 4.6 cm left renal cyst and a 2.2 cm renal calculus. ORDERING PHYSICIAN: TENZIN SMITH MD PROCEDURE(s): CXR2 - CHEST TWO VIEWS ROUTINE REASON: sob ORDER NUMBER(s): [id number], ACCESSION NUMBER(s): [id number] EXAM: XY CHEST TWO VIEWS ROUTINE TECHNIQUE: Single frontal chest radiograph CLINICAL HISTORY: sob COMPARISON: None Findings/Impression: Frontal chest radiograph demonstrates no acute osseous or superficial soft tissue abnormalities. The trachea is midline. Borderline cardiomegaly with pulmonary vascular congestion. No pneumothorax, pleural effusions, or consolidations. Linear hyperdensities may reflect superficial foreign bodies. Assessment/Plan Assessment/Plan Heart failure, unspecified Urinary tract infection Urinary tract infection, site not specified Acute renal injury Acute exacerbation of congestive heart failure Plan 1. Admit to telemetry unit 2. Breathing treatment 3. Pain control management 4. IV antibiotic management 5. Management of fluids and electrolytes 6. Consultation for hospitalist 7. Diagnostic test chest x-ray 8. DVT prophylaxis-on aspirin 9. Repeat labs CBC, CMP in a.m. 10. Home medication reviewed and reconciled 11. Continue with current medical management 12. Treatment plan discussed with patient and RN. Patient verbalized understanding. Plan discussed with: Patient, Other (RN) My Orders Orders - LANG MIX DNP Procedure Category Date Status Time Ceftriaxone 1gm/50ml PHA 08/26/24 In Process D5w (Rocephin) 09:00 Urine Bacterial LISANDRO 08/25/24 In Process Culture 20:32 *Dr. Mckeon Group CONS 08/25/24 Transmitted -[place] 20:32 Hydralazine Injection PHA 08/25/24 In Process (Apresoline Inject 20:45 Amlodipine Tablet PHA 08/26/24 In Process (Norvasc Tablet) 10:00 Allergies SRAVANTHI 08/25/24 In Process 20:32 Code Status CODE 08/25/24 Transmitted 20:32 Sodium Chloride Lock PHA 08/25/24 In Process (Saline Lock Ns) 22:00 Oxygen Per Hour RT 08/25/24 Transmitted 20:32 Hydrocodone-Acet PHA 08/25/24 In Process 5/325mg Tab ([place] 20:45 Ondansetron Hcl PHA 08/25/24 In Process (Zofran) 20:45 Docusate Sodium PHA 08/25/24 In Process Capsule (Colace 20:45 Multiple Vitamin PHA 08/26/24 In Process Tablet (Mvi Tab) 10:00 Complete Blood Count LAB 08/26/24 Verified 04:00 Comprehensive LAB 08/26/24 Verified Metabolic Panel 04:00 Condition: Serious SRAVANTHI 08/25/24 In Process 20:32 Acetaminophen Tablet PHA 08/25/24 In Process (Tylenol Tablet) 20:45 Clear Liq Diet DIET 08/26/24 Transmitted Breakfast Bedrest With Bathroom SRAVANTHI 08/25/24 In Process Privileg 20:32 Sequential SRAVANTHI 08/25/24 In Process Compression Device Problem List: (1) Heart failure, unspecified (2) Urinary tract infection (3) Urinary tract infection, site not specified (4) Acute renal injury (5) Acute exacerbation of congestive heart failure Date of Service: Aug 25, 2024 Billing Provider: LANG MIX DNP Common Visit Codes: [id number] INP/OBS CARE (HIGH) LANG MIX DNP Aug 25, 2024 22:06
[2024-08-25] MEDS ORDERED: MORPHINE SULFATE 4 MG/ML SYR/VIAL IV PRN (22:15)
[2024-08-25 23:38] VITALS: BP 124/68; PULSE 74; RESP 17; TEMP 97.4; O2SAT 98
[2024-08-25 23:39] VITALS: PULSE 81; RESP 18; O2SAT 98
[2024-08-25 23:40] VITALS: BP 124/68; PULSE 74; RESP 17; TEMP 97.4; O2SAT 98
[2024-08-25] MEDS ORDERED: AMLO1TAB22 PO (23:52)
[2024-08-25] MEDS ORDERED: METO-158 PO (23:52)
[2024-08-26] MEDS: SODIUM CHLOR 0.9% PF (SALINE LOCK) 10ML VIAL/SYR IV SCH (00:14)
[2024-08-26] MEDS: CARVEDILOL 3.125 MG TAB PO SCH (00:14)
[2024-08-26 05:00] VITALS: BP 112/76; PULSE 74; RESP 16; TEMP 97.1; O2SAT 95
[2024-08-26] MEDS: BUMETANIDE 1mg/4ml VIAL (0.25mg/ml) IV SCH (05:05)
[2024-08-26 06:39] LABS: Hematocrit 26.8 % (41.0-53.0); Hemoglobin 8.7 g/dL (13.5-17.5); Mean Corpuscular Hemoglobin 28.8 pg (28.0-32.0); Mean Corpuscular Hgb Conc. 32.5 g/dL (32.0-36.0); Mean Corpuscular Volume 88.6 fL (80.0-100.0); Platelet Count (auto) 378 10^3/uL (140-450); Red Blood Cells 3.03 10^6/uL (4.5-5.90); Red Cell Distribution Width 17.9 % (11.8-14.3); White Blood Cell 10.6 10^3/uL (4.4-10.8)
[2024-08-26 06:48] LABS: Basophils % (manual) 0 (0.0-2.0); Blast Cells 0; Metamyelocytes % 0; Myelocytes % 0; Promyelocytes % 0; Reactive Lymphocytes 0
[2024-08-26 06:56] LABS: Alanine Aminotransferase 23 U/L (7-40); Albumin 3.9 g/dL (3.2-4.8); Alkaline Phosphatase 51 U/L (46-116); Anion Gap 10 (5-15); Aspartate Aminotransferase 15 U/L (13-40); BUN/Creatinine Ratio 11.5 (10.0-20.0); Blood Urea Nitrogen 22 mg/dL (9-23); Calcium 9.3 mg/dL (8.7-10.4); Carbon Dioxide 26 mmol/L (20-31); Chloride 105 mmol/L (98-107); Glucose 85 mg/dL (74-106); Potassium 4.1 mmol/L (3.5-5.1); Sodium 141 mmol/L (136-145); Total Protein 6.2 g/dL (5.7-8.2)
[2024-08-26 07:00] LABS: Bilirubin, Total 1.4 mg/dL (0.2-1.0)
[2024-08-26 07:33] LABS: Band Neutrophils % (manual) 3; Eosinophils % (manual) 7 (0-7); Lymphocytes % (manual) 10 (10.0-50.0); Monocytes % (manual) 6 (0-12)
[2024-08-26 07:34] LABS: Anisocytosis Slight; Macrocytosis Slight; Platelet Estimate Adequate; Polychromasia Slight
[2024-08-26 08:00] VITALS: PULSE 72; PULSE 74; RESP 20; O2SAT 94
[2024-08-26 09:00] VITALS: BP 147/80; PULSE 74; RESP 20; TEMP 97.1; O2SAT 94
[2024-08-26] MEDS: ASPirin 81 mg TAB PO SCH (09:34)
[2024-08-26] MEDS: cefTRIAXone 1GM/50ML D5W 50 ML IV SCH (09:34)
[2024-08-26] MEDS: MULTIPLE VITAMIN TAB PO SCH (09:34)
[2024-08-26] MEDS: amLODIPine BESYLATE 5 MG TAB PO SCH (09:35)
[2024-08-26 13:00] VITALS: BP 153/85; PULSE 68; RESP 20; TEMP 97.3; O2SAT 98
[2024-08-26] MEDS ORDERED: FLUT50SP28 (14:14)
--- NOTE | 2024-08-26 15:05 | DVHINCON2 ---
Date of service: Aug 26, 2024 Referring Physician Jonathan TUCKER Reason for Consultation MARITO History of Present Illness 74 y/o male with hx of HTN x 20+ years well controlled, nephrolithiasis, anemia, CHF, BPH. Admitted for acute exacerbation of CHF. Reports generalized weakness, dyspnea with exertion, dysuria, and abd pain x 2 weeks. On admission pt was found to have BUN 24, creat 2.11, GFR 32. Repeat lab draw on 08/26 BUN 22, creat 1.91, GFR 36. Denies hx of CKD. Denies NSAID use. Consulted for MARITO. Past Medical History HTN, nephrolithiasis, anemia, CHF, BPH. Allergies: Coded Allergies: NO KNOWN ALLERGIES (Unverified , 08/20/24) Home Meds Active Scripts Ferrous Sulfate (Iron) 325 Mg Tab, 325 MG PO BID, #60 TAB Prov:MAGDIEL DAO MD 08/24/24 Sucralfate (CARAFATE) 1 Gm Tab, 1 GM OR QID, #120 TAB Prov:MAGDIEL DAO MD 08/24/24 Pantoprazole Sodium Sesquihydr (Pantoprazole Sodium) 40 Mg Tab, 40 MG PO BID, #60 TAB Prov:MAGDIEL DAO MD 08/24/24 Levofloxacin Hemihydrate (LEVAQUIN 500 MG) 500 Mg Tab, 1 TAB PO DAILY, #7 TAB Prov:MAGDIEL DAO MD 08/24/24 Reported Medications Fluticasone Propionate (Nasal) (Allergy Relief) 50 Mcg/Act Spr, 50 MCG NA, SPRAY 08/26/24 Amlodipine Besylate (Amlodipine Besylate) 5 Mg Tab, 10 MG PO DAILY for 30 Days, MG 08/25/24 Metoprolol Tartrate (Metoprolol Tartrate) 50 Mg Tab, 50 MG PO for 30 Days, MG 08/25/24 Discontinued Reported Medications Amlodipine Besylate (NORVASC TABLET) 5 Mg Tb, 1 TAB PO DAILY, #30 TAB 5 Refills 08/20/24 Metoprolol Tartrate (Metoprolol Tartrate) 25 Mg Tab, 25 MG PO, TAB 08/20/24 Current Medications Current Medications Medications (Trade) Dose Ordered Sig/[place]aston Route PRN Reason Start Time Stop Time Status Last Admin Ceftriaxone Sodium 50 ml @ 100 mls/hr DAILY@09 IV 08/26/24 09:00 08/26/24 09:34 Amlodipine Besylate (Norvasc Tablet) 5 mg DAILY PO 08/26/24 10:00 08/26/24 09:35 Multivitamins (Mvi Tab) 1 tab DAILY PO 08/26/24 10:00 08/26/24 09:34 Bumetanide (Bumex Injection) 1 mg BIDD IV 08/26/24 06:00 08/26/24 17:36 Aspirin 81 mg DAILY PO 08/26/24 10:00 08/26/24 09:34 Fluticasone Propionate (Flonase [place]) 50 mcg PRN PRN EACHNOSTRI NASAL CONGESTION 08/26/24 14:30 Family History: Patient reports no known family medical history. Review of Systems 10 systems reviewed and negative except as per HPI H&P Exam Vital Signs/I&O Vital Sign Date Time Temp Pulse Resp B/P (MAP) Pulse Ox O2 Delivery O2 Flow Rate FiO2 08/26/24 20:36 73 136/72 08/26/24 20:00 17 96 Room Air* 0 21 08/26/24 17:00 97.3 97.3 Intake and Output 08/25/24 08/26/24 19:00 07:00 Intake Total 50 ml 200 ml Balance 50 ml 200 ml Intake Oral 200 ml IV Total 50 ml # Voids 3 # Bowel Movements 3 Physical Exam Gen: NAD, appears stated age HEENT: PERRLA, mucous membranes moist, conjunctiva pink Lungs: Bilateral air entry, no rales Heart: RRR, normal S1 and S2 Adb: normoactive bowel sounds, nondistended, nontender, soft Ext: No edema Neuro: A&O x4 Labs/Diagnostic Data Labs/Diagnostic Data Laboratory Tests Test 08/26/24 06:14 08/25/24 20:46 08/25/24 19:16 08/25/24 17:18 Range/Units White Blood Count 10.6 4.4-10.8 10^3/uL Red Blood Count 3.03 L 4.5-5.90 10^6/uL Hemoglobin 8.7 L 13.5-17.5 g/dL Hematocrit 26.8 L 41.0-53.0 % Mean Corpuscular Volume 88.6 80.0-100.0 fL Mean Corpuscular Hemoglobin 28.8 28.0-32.0 pg Mean Corpuscular Hemoglobin Concent 32.5 32.0-36.0 g/dL Red Cell Distribution Width 17.9 H 11.8-14.3 % Platelet Count 378 140-450 10^3/uL Mean Platelet Volume 8.0 6.9-10.8 fL Neutrophils (%) (Auto) 37.0-80.0 % Lymphocytes (%) (Auto) 10.0-50.0 % Monocytes (%) (Auto) 0.0-12.0 % Basophils (%) (Auto) 0.0-2.0 % Neutrophils # (Auto) 1.6-8.6 10 ^3/uL Lymphocytes # (Auto) 0.4-5.4 10 ^3/uL Monocytes # (Auto) 0-1.3 10 ^3/uL Differential Total Cells Counted 100.0 100 Neutrophils % (Manual) 74 37.0-80.0 Band Neutrophils % (Manual) 3 Lymphocytes % (Manual) 10 10.0-50.0 Monocytes % (Manual) 6 0-12 Eosinophils % (Manual) 7 0-7 Basophils % (Manual) 0 0.0-2.0 Metamyelocytes % (manual) 0 Myelocytes % (Manual) 0 Promyelocytes % (Manual) 0 Blast Cells % (Manual) 0 Reactive Lymphocytes 0 Platelet Estimate Adequate Polychromasia Slight Anisocytosis (manual) Slight Macrocytosis Slight Sodium Level 141 136-145 mmol/L Potassium Level 4.1 3.5-5.1 mmol/L Chloride Level 105 98-107 mmol/L Carbon Dioxide Level 26 20-31 mmol/L Anion Gap 10 5-15 Blood Urea Nitrogen 22 9-23 mg/dL Creatinine 1.91 H 0.700-1.30 mg/dL Glomerular Filtration Rate Calc 36 >90 mL/min BUN/Creatinine Ratio 11.5 10.0-20.0 Serum Glucose 85 74-106 mg/dL Calcium Level 9.3 8.7-10.4 mg/dL Total Bilirubin 1.4 H 0.2-1.0 mg/dL Aspartate Amino Transferase (AST) 15 13-40 U/L Alanine Aminotransferase (ALT) 23 7-40 U/L Alkaline Phosphatase 51 46-116 U/L Total Protein 6.2 5.7-8.2 g/dL Albumin 3.9 3.2-4.8 g/dL B-Type Natriuretic Peptide 1481.63 0-100 pg/mL Troponin I High Sensitivity 16 15 </=54 ng/L Test 08/25/24 16:15 08/25/24 15:00 Range/Units White Blood Count 10.8 4.4-10.8 10^3/uL Red Blood Count 2.99 L 4.5-5.90 10^6/uL Hemoglobin 8.7 L 13.5-17.5 g/dL Hematocrit 26.9 L 41.0-53.0 % Mean Corpuscular Volume 90.1 80.0-100.0 fL Mean Corpuscular Hemoglobin 29.2 28.0-32.0 pg Mean Corpuscular Hemoglobin Concent 32.5 32.0-36.0 g/dL Red Cell Distribution Width 18.9 H 11.8-14.3 % Platelet Count 431 140-450 10^3/uL Mean Platelet Volume 8.0 6.9-10.8 fL Neutrophils (%) (Auto) 37.0-80.0 % Lymphocytes (%) (Auto) 10.0-50.0 % Monocytes (%) (Auto) 0.0-12.0 % Basophils (%) (Auto) 0.0-2.0 % Neutrophils # (Auto) 1.6-8.6 10 ^3/uL Lymphocytes # (Auto) 0.4-5.4 10 ^3/uL Monocytes # (Auto) 0-1.3 10 ^3/uL Differential Total Cells Counted 100.0 100 Neutrophils % (Manual) 69 37.0-80.0 Band Neutrophils % (Manual) 7 Lymphocytes % (Manual) 10 10.0-50.0 Monocytes % (Manual) 6 0-12 Eosinophils % (Manual) 7 0-7 Basophils % (Manual) 0 0.0-2.0 Metamyelocytes % (manual) 1 Myelocytes % (Manual) 0 Promyelocytes % (Manual) 0 Blast Cells % (Manual) 0 Reactive Lymphocytes 0 Platelet Estimate Adequate Large Platelets Few Anisocytosis (manual) Slight Prothrombin Time 11.6 9.3-11.8 sec Prothrombin Time INR 1.11 0.9-1.15 Activated Partial Thromboplast Time 26.4 24.5-34.5 SEC Sodium Level 140 136-145 mmol/L Potassium Level 4.4 3.5-5.1 mmol/L Chloride Level 105 98-107 mmol/L Carbon Dioxide Level 26 20-31 mmol/L Anion Gap 9 5-15 Blood Urea Nitrogen 24 H 9-23 mg/dL Creatinine 2.11 H 0.700-1.30 mg/dL Glomerular Filtration Rate Calc 32 >90 mL/min BUN/Creatinine Ratio 11.4 10.0-20.0 Serum Glucose 80 74-106 mg/dL Lactic Acid Level 1.4 0.4-2.0 mmol/L Calcium Level 8.9 8.7-10.4 mg/dL Total Bilirubin 1.4 H 0.2-1.0 mg/dL Aspartate Amino Transferase (AST) 17 13-40 U/L Alanine Aminotransferase (ALT) 28 7-40 U/L Alkaline Phosphatase 53 46-116 U/L Troponin I High Sensitivity 15 </=54 ng/L B-Type Natriuretic Peptide 1607.50 0-100 pg/mL Total Protein 6.4 5.7-8.2 g/dL Albumin 4.1 3.2-4.8 g/dL Urine Color Yellow Yellow Urine Clarity Clear Clear Urine pH 6.0 5.0-9.0 Urine Specific [place] 1.016 1.001-1.035 Urine Protein 1+ H Negative Urine Ketones Negative Negative Urine Blood Negative Negative /uL Urine Nitrite Negative Negative Urine Bilirubin Negative Negative Urine Urobilinogen Normal Negative mg/dL Urine Leukocyte Esterase 2+ Negative /uL Urine RBC 4 0 - 3 /hpf Urine Microscopic WBC 105 H 0-3 /HPF Urine Squamous Epithelial Cells Few <5 /hpf Urine Bacteria None seen None Seen /hpf Urine Glucose Normal Normal mg/dL Microbiology Date/Time Source Procedure Growth Status 08/25/24 23:40 Nose MRSA Screen - Final Complete Plan/Recommendation IMP MARITO hemodynamically mediated Possible CKD 3b unknown baseline creat HTN BPH Hx of nephrolithiasis Acute exacerbation of CHF REC -Renal U/S -Chemistry panel, CBC, TSH, uric acid, phos, urine studies -Strict I&Os -Avoidance of nephrotoxins including NSAIDs and contrast studies if able -Blood pressure control -Consider cardiology consult -Will continue to follow Thank you for the consultation Plan discussed with: Patient, Other (Dr. Adan Mckeon) CIRO SOUZAP Aug 26, 2024 15:05
[2024-08-26 17:00] VITALS: BP 136/76; PULSE 73; RESP 20; TEMP 97.3; O2SAT 94
--- NOTE | 2024-08-26 18:23 | DVHPN2 ---
Subjective I am assuming the care of the patient from today onwards. This patient has a known history of BPH, nonfunctioning left kidney, recent history of anemia status post 3 units of packed RBC, septic shock secondary to UTI was treated patient was discharged. Presented to the hospital with similar symptoms. Changes from previous H/P or p: No Changes Eyes: No Pain, No Vision change, No Conjunctivae inflammation, No Eyelid inflammation, No Other, No Redness ENT: No Ear pain, No Ear discharge, No Nose pain, No Nose discharge, No Nose congestion, No Mouth pain, No Mouth swelling, No Throat pain, No Throat swelling, No Other Cardiovascular: No Chest Pain, No Palpitations, No Orthopnea, No Paroxysmal Noc. Dyspnea, No Edema, No Lt Headedness, No Other Respiratory: No Cough, No Dry; Shortness of breath; No SOB with excertion, No Wheezing, No Hemoptysis, No Pleuritic Pain, No Sputum, No Other Gastrointestinal: No Nausea, No Vomiting; Abdominal Pain; No Diarrhea, No Constipation, No Melena, No Hematochezia, No Other Genitourinary: Dysuria; No Frequency, No Incontinence, No Hematuria, No Retention, No Other Musculoskeletal: No other, No neck pain, No shoulder pain, No arm pain, No back pain, No hand pain, No leg pain, No foot pain Skin: No Rash, No Lesions, No Jaundice, No Bruising, No Other Objective Vitals Vital Signs Date Time Temp Pulse Resp B/P (MAP) Pulse Ox O2 Delivery O2 Flow Rate FiO2 08/26/24 17:36 136/76 08/26/24 17:00 97.3 73 20 94 97.3 08/26/24 08:00 Room Air* 0 21 Intake/Output Intake and Output 08/26/24 07:00 Intake Total 250 ml Balance 250 ml Intake Oral 200 ml IV Total 50 ml # Voids 3 # Bowel Movements 3 Exam HEENT pupils are reactive Neck is supple CV is S1-S2 regular rate and rhythm Respiratory are clear GI positive bowel sound Extremity no edema 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 Medications Current Medications Medications Dose Ordered Sig/Gaston Route Start Time Stop Time Status Last Admin Dose Admin Ceftriaxone Sodium 50 ml @ 100 mls/hr DAILY@09 IV 08/26/24 09:00 08/26/24 09:34 100 MLS/HR Hydralazine HCl 10 mg Q6HP PRN IV 08/25/24 20:45 Amlodipine Besylate 5 mg DAILY PO 08/26/24 10:00 08/26/24 09:35 5 MG Sodium Chloride 10 ml Q8HR IV 08/25/24 22:00 08/26/24 13:53 10 ML Acetaminophen/ Hydrocodone Bitart 1 tab Q4HP PRN PO 08/25/24 20:45 Ondansetron HCl 4 mg Q4HP PRN IV 08/25/24 20:45 Docusate Sodium 100 mg BIDPRN PRN PO 08/25/24 20:45 Multivitamins 1 tab DAILY PO 08/26/24 10:00 08/26/24 09:34 1 TAB Acetaminophen 650 mg Q6HP PRN PO 08/25/24 20:45 Bumetanide 1 mg BIDD IV 08/26/24 06:00 08/26/24 17:36 1 MG Carvedilol 6.25 mg Q12HR PO 08/25/24 22:00 08/26/24 09:35 6.25 MG Nitroglycerin 0.4 mg Q5MINP PRN SL 08/25/24 22:00 Morphine Sulfate 2 mg Q30M PRN IV 08/25/24 22:15 Aspirin 81 mg DAILY PO 08/26/24 10:00 08/26/24 09:34 81 MG Fluticasone Propionate 50 mcg PRN PRN EACHNOSTRI 08/26/24 14:30 Laboratory Results Laboratory Tests 08/26/24 06:14 Chemistry Test 08/26/24 06:14 Albumin 3.9 g/dL (3.2-4.8) Calcium Level 9.3 mg/dL (8.7-10.4) Total Protein 6.2 g/dL (5.7-8.2) Cardiac Markers Test 08/25/24 20:46 B-Type Natriuretic Peptide 1481.63 pg/mL (0-100) LFT Test 08/26/24 06:14 Alanine Aminotransferase (ALT) 23 U/L (7-40) Alkaline Phosphatase 51 U/L (46-116) Aspartate Amino Transferase (AST) 15 U/L (13-40) Total Bilirubin 1.4 mg/dL (0.2-1.0) H Urinalysis Test 08/25/24 15:00 Urine Color Yellow (Yellow) Urine Clarity Clear (Clear) Urine pH 6.0 (5.0-9.0) Urine Specific [place] 1.016 (1.001-1.035) Urine Protein 1+ (Negative) H Urine Ketones Negative (Negative) Urine Blood Negative /uL (Negative) Urine Nitrite Negative (Negative) Urine Bilirubin Negative (Negative) Urine Urobilinogen Normal mg/dL (Negative) Urine Leukocyte Esterase 2+ /uL (Negative) Urine RBC 4 /hpf (0 - 3) Urine Microscopic WBC 105 /HPF (0-3) H Urine Squamous Epithelial Cells Few /hpf (<5) Urine Bacteria None seen /hpf (None Seen) Urine Glucose Normal mg/dL (Normal) Microbiology Microbiology Date/Time Source Procedure Growth Status 08/25/24 23:40 Nose MRSA Screen - Final Complete 08/25/24 16:15 Blood Blood Culture - Preliminary NO GROWTH AFTER 24 HOURS OF INCUBATION. Resulted 08/25/24 15:00 Voided Urine Urine Culture - Preliminary Resulted Assessment/Plan Assessment/Plan 74-year-old male with a known history of BPH, nonfunctioning left kidney, CKD, severe anemia status post 3 units of packed RBC or recent admission, septic shock secondary to UTI was treated presented to the hospital with generalized weakness shortness of breath abdominal bloating and dysuria found to have 1. Generalized weakness 2. 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 BPH 5. Hypertension 6. Nonfunctioning left-sided kidney 7. Urinary tract infection -IV antibiotics -monitor H&H, GI consultation possible EGD and colonoscopy. Plan discussed with: Patient, Other My Orders Orders - MELONIE PARIS MD Procedure Category Date Status Time Fluticasone Nasal PHA 08/26/24 In Process [place] (Flonase [place]) 14:30 * [facility] Account Officer CONS 08/26/24 Transmitted 16:42 Date of Service: Aug 26, 2024 Billing Provider: MELONIE PARIS MD Common Visit Codes: [id number] INP/OBS CARE(MOD) MELONIE PARIS MD Aug 26, 2024 18:23
--- NOTE | 2024-08-26 19:55 | DVH ---
EXAM: US KIDNEY INDICATION: MARITO TECHNIQUE: Multiple real-time sonographic images of the kidneys and bladder were obtained. COMPARISON: None Findings: Right kidney measures 12.0 cm with normal contours, echotexture, and cortical thickness. Multiple ane choic lesions measuring up to 2.6 cm. No evidence of hydronephrosis, calculi, or solid lesions. Left kidney was not able to be measured. Normal contours, increased echotexture, and decreased cortic al thickness. Nephrolithiasis. 5.5 cm anechoic lesion. No evidence of hydronephrosis or solid lesions . Urinary bladder is unremarkable without evidence of abnormal wall thickening, mass, or calculi. Prevo id volume 223.9 mL. Postvoid volume was not obtained. Impression: 1. Unremarkable sonographic study of the urinary bladder. 2. Bilateral renal cysts. 3. Increased echogenicity and decreased cortical thickness of the left kidney. Correlate for medical renal disease. 4. Left nephrolithiasis.
[2024-08-26 20:00] VITALS: PULSE 68; PULSE 70; RESP 17; O2SAT 96
[2024-08-27] VITALS (8 sets, daily range): BP systolic 121–140; BP diastolic 61–84; PULSE 68–77; RESP 18; TEMP 97.5–98.6; O2SAT 93–98
[2024-08-27] MEDS: FLUTICASONE PROP NASAL SPR 0.05 % (50MCG) 16GM EACHNOSTRI PRN (03:32)
[2024-08-27 06:46] LABS: Hematocrit 28.8 % (41.0-53.0); Hemoglobin 9.4 g/dL (13.5-17.5); Mean Corpuscular Hemoglobin 28.7 pg (28.0-32.0); Mean Corpuscular Hgb Conc. 32.8 g/dL (32.0-36.0); Mean Corpuscular Volume 87.4 fL (80.0-100.0); Platelet Count (auto) 434 10^3/uL (140-450); Red Blood Cells 3.29 10^6/uL (4.5-5.90); Red Cell Distribution Width 18.1 % (11.8-14.3); White Blood Cell 8.3 10^3/uL (4.4-10.8)
[2024-08-27 06:51] LABS: Basophils % (manual) 0 (0.0-2.0); Blast Cells 0; Metamyelocytes % 0; Promyelocytes % 0; Reactive Lymphocytes 0
[2024-08-27 06:52] LABS: Anion Gap 9 (5-15); Calcium 8.8 mg/dL (8.7-10.4); Carbon Dioxide 26 mmol/L (20-31); Chloride 105 mmol/L (98-107); Potassium 3.7 mmol/L (3.5-5.1); Sodium 140 mmol/L (136-145)
[2024-08-27 06:58] LABS: BUN/Creatinine Ratio 8.6 (10.0-20.0); Blood Urea Nitrogen 16 mg/dL (9-23); Glucose 91 mg/dL (74-106)
[2024-08-27 07:00] LABS: Phosphorus 3.5 mg/dL (2.4-5.1)
[2024-08-27 07:08] LABS: Uric Acid 9.4 mg/dL (3.7-9.2)
[2024-08-27 07:23] LABS: Band Neutrophils % (manual) 2; Eosinophils % (manual) 16 (0-7); Lymphocytes % (manual) 11 (10.0-50.0); Monocytes % (manual) 2 (0-12); Myelocytes % 1
[2024-08-27 07:24] LABS: Ovalocytes FEW; Platelet Estimate Adequate
--- NOTE | 2024-08-27 10:19 | DVHPN2 ---
Progress Note Date Seen: Aug 27, 2024 Medical Necessity Reason Pt with a Central, PICC or Fol: No Subjective Patient reports: Feels better Objective vital signs Vital Sign Date Time Temp Pulse Resp B/P (MAP) Pulse Ox O2 Delivery O2 Flow Rate FiO2 08/27/24 09:11 71 140/74 08/27/24 05:00 97.6 18 94 97.6 08/26/24 20:00 Room Air* 0 21 Total Intake and Output 08/26/24 08/26/24 08/27/24 15:00 23:00 07:00 Intake Total 50 ml 800 ml 200 ml Output Total 100 ml Balance 50 ml 800 ml 100 ml medications Current Medications Medications Dose Ordered Sig/Gaston Route Start Time Stop Time Status Last Admin Dose Admin Ceftriaxone Sodium 50 ml @ 100 mls/hr DAILY@09 IV 08/26/24 09:00 08/27/24 09:12 100 MLS/HR Hydralazine HCl 10 mg Q6HP PRN IV 08/25/24 20:45 Amlodipine Besylate 5 mg DAILY PO 08/26/24 10:00 08/27/24 09:11 5 MG Sodium Chloride 10 ml Q8HR IV 08/25/24 22:00 08/27/24 06:06 10 ML Acetaminophen/ Hydrocodone Bitart 1 tab Q4HP PRN PO 08/25/24 20:45 Ondansetron HCl 4 mg Q4HP PRN IV 08/25/24 20:45 Docusate Sodium 100 mg BIDPRN PRN PO 08/25/24 20:45 Multivitamins 1 tab DAILY PO 08/26/24 10:00 08/27/24 09:10 1 TAB Acetaminophen 650 mg Q6HP PRN PO 08/25/24 20:45 Bumetanide 1 mg BIDD IV 08/26/24 06:00 08/27/24 06:06 1 MG Carvedilol 6.25 mg Q12HR PO 08/25/24 22:00 08/27/24 09:11 6.25 MG Nitroglycerin 0.4 mg Q5MINP PRN SL 08/25/24 22:00 Morphine Sulfate 2 mg Q30M PRN IV 08/25/24 22:15 Aspirin 81 mg DAILY PO 08/26/24 10:00 08/27/24 09:12 81 MG Fluticasone Propionate 50 mcg PRN PRN EACHNOSTRI 08/26/24 14:30 08/27/24 03:32 50 MCG Examination: GENERAL:Normal, CVS:Normal laboratory and microbiology Laboratory Tests 08/27/24 06:05 Test 08/27/24 06:05 Range/Units Serum Glucose 91 74-106 mg/dL Microbiology Date/Time Source Procedure Growth Status 08/25/24 23:40 Nose MRSA Screen - Final Complete 08/25/24 16:15 Blood Blood Culture - Preliminary NO GROWTH AFTER 24 HOURS OF INCUBATION. Resulted 08/25/24 15:00 Voided Urine Urine Culture - Preliminary Resulted Problem List/Assessment/Plan Problem List/Assessment/Plan 74 year old male admitted for abdominal discomfort Nephrology called for Axel in setting of UTI Acute kidney injury CKD baseline is unknown, Left nonfunctional kidney w/ atrophy left kidney stone hypervolemia UTI anemia due to iron deficiency oral iron when able pending GI possible EGD/colon convert diuretics to po baseline renal function is unknown however left kidney is not functional low salt diet when po started Plan discussed with: Patient CHESTER GERBER MD Aug 27, 2024 10:19
--- NOTE | 2024-08-27 16:57 | DVHPN2 ---
Subjective This patient has a known history of BPH, nonfunctioning left kidney, recent history of anemia status post 3 units of packed RBC, septic shock secondary to UTI was treated patient was discharged. Presented to the hospital with similar symptoms. Changes from previous H/P or p: No Changes Eyes: No Pain, No Vision change, No Conjunctivae inflammation, No Eyelid inflammation, No Other, No Redness ENT: No Ear pain, No Ear discharge, No Nose pain, No Nose discharge, No Nose congestion, No Mouth pain, No Mouth swelling, No Throat pain, No Throat swelling, No Other Cardiovascular: No Chest Pain, No Palpitations, No Orthopnea, No Paroxysmal Noc. Dyspnea, No Edema, No Lt Headedness, No Other Respiratory: No Cough, No Dry; Shortness of breath; No SOB with excertion, No Wheezing, No Hemoptysis, No Pleuritic Pain, No Sputum, No Other Gastrointestinal: No Nausea, No Vomiting; Abdominal Pain; No Diarrhea, No Constipation, No Melena, No Hematochezia, No Other Genitourinary: Dysuria; No Frequency, No Incontinence, No Hematuria, No Retention, No Other Musculoskeletal: No other, No neck pain, No shoulder pain, No arm pain, No back pain, No hand pain, No leg pain, No foot pain Skin: No Rash, No Lesions, No Jaundice, No Bruising, No Other Objective Vitals Vital Signs Date Time Temp Pulse Resp B/P (MAP) Pulse Ox O2 Delivery O2 Flow Rate FiO2 08/27/24 12:56 97.9 69 18 121/84 (96) 98 97.9 08/27/24 08:00 Room Air* 0 21 Intake/Output Intake and Output 08/27/24 07:00 Intake Total 1050 ml Output Total 100 ml Balance 950 ml Intake Oral 1000 ml IV Total 50 ml Output Urine Total 100 ml # Voids 5 Exam HEENT pupils are reactive Neck is supple CV is S1-S2 regular rate and rhythm Respiratory are clear GI positive bowel sound 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 Medications Current Medications Medications Dose Ordered Sig/Gaston Route Start Time Stop Time Status Last Admin Dose Admin Ceftriaxone Sodium 50 ml @ 100 mls/hr DAILY@09 IV 08/26/24 09:00 08/27/24 09:12 100 MLS/HR Hydralazine HCl 10 mg Q6HP PRN IV 08/25/24 20:45 Amlodipine Besylate 5 mg DAILY PO 08/26/24 10:00 08/27/24 09:11 5 MG Sodium Chloride 10 ml Q8HR IV 08/25/24 22:00 08/27/24 14:00 10 ML Acetaminophen/ Hydrocodone Bitart 1 tab Q4HP PRN PO 08/25/24 20:45 Ondansetron HCl 4 mg Q4HP PRN IV 08/25/24 20:45 Docusate Sodium 100 mg BIDPRN PRN PO 08/25/24 20:45 Multivitamins 1 tab DAILY PO 08/26/24 10:00 08/27/24 09:10 1 TAB Acetaminophen 650 mg Q6HP PRN PO 08/25/24 20:45 Bumetanide 1 mg BIDD IV 08/26/24 06:00 08/27/24 06:06 1 MG Carvedilol 6.25 mg Q12HR PO 08/25/24 22:00 08/27/24 09:11 6.25 MG Nitroglycerin 0.4 mg Q5MINP PRN SL 08/25/24 22:00 Morphine Sulfate 2 mg Q30M PRN IV 08/25/24 22:15 Aspirin 81 mg DAILY PO 08/26/24 10:00 08/27/24 09:12 81 MG Fluticasone Propionate 50 mcg PRN PRN EACHNOSTRI 08/26/24 14:30 08/27/24 03:32 50 MCG Laboratory Results Laboratory Tests 08/27/24 06:05 Chemistry Test 08/27/24 06:05 Calcium Level 8.8 mg/dL (8.7-10.4) Phosphorus Level 3.5 mg/dL (2.4-5.1) HgA1c, TSH Test 08/27/24 06:05 Thyroid Stimulating Hormone (TSH) 3.08 uIU/mL (0.55-4.78) Urinalysis Test 08/25/24 15:00 Urine Color Yellow (Yellow) Urine Clarity Clear (Clear) Urine pH 6.0 (5.0-9.0) Urine Specific [place] 1.016 (1.001-1.035) Urine Protein 1+ (Negative) H Urine Ketones Negative (Negative) Urine Blood Negative /uL (Negative) Urine Nitrite Negative (Negative) Urine Bilirubin Negative (Negative) Urine Urobilinogen Normal mg/dL (Negative) Urine Leukocyte Esterase 2+ /uL (Negative) Urine RBC 4 /hpf (0 - 3) Urine Microscopic WBC 105 /HPF (0-3) H Urine Squamous Epithelial Cells Few /hpf (<5) Urine Bacteria None seen /hpf (None Seen) Urine Glucose Normal mg/dL (Normal) Microbiology Microbiology Date/Time Source Procedure Growth Status 08/25/24 23:40 Nose MRSA Screen - Final Complete 08/25/24 16:15 Blood Blood Culture - Preliminary NO GROWTH AFTER 48 HOURS OF INCUBATION. Resulted 08/25/24 15:00 Voided Urine Urine Culture - Preliminary Resulted Assessment/Plan Assessment/Plan 74-year-old male with a known history of BPH, nonfunctioning left kidney, CKD, severe anemia status post 3 units of packed RBC or recent admission, septic shock secondary to UTI was treated presented to the hospital with generalized weakness shortness of breath abdominal bloating and dysuria found to have 1. Generalized weakness 2. 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 BPH 5. Hypertension 6. Nonfunctioning left-sided kidney 7. Urinary tract infection -IV antibiotics -monitor H&H, GI consultation possible EGD and colonoscopy. Plan discussed with: Patient My Orders Orders - MELONIE PARIS MD Procedure Category Date Status Time Communication Order ORDERS 08/26/24 Transmitted 18:35 Date of Service: Aug 27, 2024 Billing Provider: MELONIE PARIS MD Common Visit Codes: [id number] INP/OBS CARE(MOD) MELONIE PARIS MD Aug 27, 2024 16:57
[2024-08-28] VITALS (7 sets, daily range): BP systolic 122–146; BP diastolic 68–86; PULSE 68–80; RESP 16–18; TEMP 97.6–98.2; O2SAT 96–99
[2024-08-28 07:19] LABS: Basophils # (auto) 0.1 10 ^3/uL (0-0.2); Basophils % (auto) 1.8 % (0.0-2.0); Eosinophils % (auto) 13.5 % (0.0-7.0); Hematocrit 28.8 % (41.0-53.0); Hemoglobin 9.5 g/dL (13.5-17.5); Lymphocytes # (auto) 1.2 10 ^3/uL (0.4-5.4); Lymphocytes % (auto) 15.6 % (10.0-50.0); Mean Corpuscular Hemoglobin 28.7 pg (28.0-32.0); Mean Corpuscular Hgb Conc. 32.9 g/dL (32.0-36.0); Mean Corpuscular Volume 87.3 fL (80.0-100.0); Monocytes # (auto) 0.6 10 ^3/uL (0-1.3); Monocytes % (auto) 7.7 % (0.0-12.0); Neutrophils # (auto) 4.7 10 ^3/uL (1.6-8.6); Neutrophils % (auto) 61.4 % (37.0-80.0); Platelet Count (auto) 437 10^3/uL (140-450); White Blood Cell 7.6 10^3/uL (4.4-10.8)
[2024-08-28 07:31] LABS: Anion Gap 9 (5-15); Carbon Dioxide 27 mmol/L (20-31); Potassium 3.8 mmol/L (3.5-5.1); Sodium 143 mmol/L (136-145)
[2024-08-28 07:33] LABS: Calcium 9.3 mg/dL (8.7-10.4)
[2024-08-28 07:35] LABS: Chloride 107 mmol/L (98-107)
[2024-08-28 07:37] LABS: Glucose 90 mg/dL (74-106)
[2024-08-28 07:38] LABS: Blood Urea Nitrogen 14 mg/dL (9-23)
--- NOTE | 2024-08-28 09:20 | DVHPN2 ---
Progress Note Date Seen: Aug 28, 2024 Medical Necessity Reason Pt with a Central, PICC or Fol: No Subjective Review of Systems: GI:Normal Objective vital signs Vital Sign Date Time Temp Pulse Resp B/P (MAP) Pulse Ox O2 Delivery O2 Flow Rate FiO2 08/28/24 08:45 126/68 08/28/24 08:44 82 08/28/24 05:00 98.2 17 99 98.2 08/27/24 20:00 Room Air* 0 21 Total Intake and Output 08/27/24 08/27/24 08/28/24 15:00 23:00 07:00 Intake Total 669 ml 800 ml Balance 669 ml 800 ml medications Current Medications Medications Dose Ordered Sig/Gaston Route Start Time Stop Time Status Last Admin Dose Admin Ceftriaxone Sodium 50 ml @ 100 mls/hr DAILY@09 IV 08/26/24 09:00 08/28/24 08:43 100 MLS/HR Hydralazine HCl 10 mg Q6HP PRN IV 08/25/24 20:45 Amlodipine Besylate 5 mg DAILY PO 08/26/24 10:00 08/28/24 08:45 5 MG Sodium Chloride 10 ml Q8HR IV 08/25/24 22:00 08/28/24 06:00 10 ML Acetaminophen/ Hydrocodone Bitart 1 tab Q4HP PRN PO 08/25/24 20:45 Ondansetron HCl 4 mg Q4HP PRN IV 08/25/24 20:45 Docusate Sodium 100 mg BIDPRN PRN PO 08/25/24 20:45 Multivitamins 1 tab DAILY PO 08/26/24 10:00 08/28/24 08:43 1 TAB Acetaminophen 650 mg Q6HP PRN PO 08/25/24 20:45 Bumetanide 1 mg BIDD IV 08/26/24 06:00 08/27/24 06:06 1 MG Carvedilol 6.25 mg Q12HR PO 08/25/24 22:00 08/28/24 08:44 6.25 MG Nitroglycerin 0.4 mg Q5MINP PRN SL 08/25/24 22:00 Morphine Sulfate 2 mg Q30M PRN IV 08/25/24 22:15 Aspirin 81 mg DAILY PO 08/26/24 10:00 08/28/24 08:43 81 MG Fluticasone Propionate 50 mcg PRN PRN EACHNOSTRI 08/26/24 14:30 08/27/24 03:32 50 MCG Examination: GENERAL:Normal, CVS:Normal, ABDOMEN:Normal, SKIN:Normal laboratory and microbiology Laboratory Tests 08/28/24 06:19 Test 08/28/24 06:19 Range/Units Serum Glucose 90 74-106 mg/dL Microbiology Date/Time Source Procedure Growth Status 08/25/24 23:40 Nose MRSA Screen - Final Complete 08/25/24 16:15 Blood Blood Culture - Preliminary NO GROWTH AFTER 48 HOURS OF INCUBATION. Resulted 08/25/24 15:00 Voided Urine Urine Culture - Preliminary Resulted Problem List/Assessment/Plan Problem List/Assessment/Plan 74 year old male admitted for abdominal discomfort Nephrology called for Axel in setting of UTI Acute kidney injury CKD baseline is unknown, Left nonfunctional kidney w/ atrophy left kidney stone hypervolemia UTI anemia due to iron deficiency oral iron when able, send iron panel today pending GI possible EGD/colon convert diuretics to po baseline renal function is unknown however left kidney is not functional low salt diet when po started Plan discussed with: Patient CHESTER GERBER MD Aug 28, 2024 09:20
[2024-08-28] MEDS: BUMETANIDE 1 MG TAB PO SCH (10:00)
[2024-08-28 10:58] LABS: % Iron Saturation 7.1 % (20-55)
--- NOTE | 2024-08-28 16:54 | DVHDS2 ---
Discharge Summary Date of Admission Aug 25, 2024 at 22:00 Date of Discharge: Aug 28, 2024 Labs/Diagnostic Data: Laboratory Results Test 08/28/24 06:19 08/27/24 06:05 08/26/24 06:14 08/25/24 20:46 White Blood Count 7.6 10^3/uL (4.4-10.8) Red Blood Count 3.30 10^6/uL (4.5-5.90) Hemoglobin 9.5 g/dL (13.5-17.5) Hematocrit 28.8 % (41.0-53.0) Mean Corpuscular Volume 87.3 fL (80.0-100.0) Mean Corpuscular Hemoglobin 28.7 pg (28.0-32.0) Mean Corpuscular Hemoglobin Concent 32.9 g/dL (32.0-36.0) Red Cell Distribution Width 18.0 % (11.8-14.3) Platelet Count 437 10^3/uL (140-450) Mean Platelet Volume 7.8 fL (6.9-10.8) Neutrophils (%) (Auto) 61.4 % (37.0-80.0) Lymphocytes (%) (Auto) 15.6 % (10.0-50.0) Monocytes (%) (Auto) 7.7 % (0.0-12.0) Eosinophils (%) (Auto) 13.5 % (0.0-7.0) Basophils (%) (Auto) 1.8 % (0.0-2.0) Neutrophils # (Auto) 4.7 10 ^3/uL (1.6-8.6) Lymphocytes # (Auto) 1.2 10 ^3/uL (0.4-5.4) Monocytes # (Auto) 0.6 10 ^3/uL (0-1.3) Eosinophils # (Auto) 1.0 10 ^3/uL (0-0.8) Basophils # (Auto) 0.1 10 ^3/uL (0-0.2) Nucleated Red Blood Cells 0.0 % Sodium Level 143 mmol/L (136-145) Potassium Level 3.8 mmol/L (3.5-5.1) Chloride Level 107 mmol/L (98-107) Carbon Dioxide Level 27 mmol/L (20-31) Anion Gap 9 (5-15) Blood Urea Nitrogen 14 mg/dL (9-23) Creatinine 1.74 mg/dL (0.700-1.30) Glomerular Filtration Rate Calc 41 mL/min (>90) BUN/Creatinine Ratio 8.0 (10.0-20.0) Serum Glucose 90 mg/dL (74-106) Calcium Level 9.3 mg/dL (8.7-10.4) Iron Level 25 ug/dL (65-175) Total Iron Binding Capacity 354 ug/dL (250-425) Percent Iron Saturation 7.1 % (20-55) Ferritin 19.6 ng/mL (22-322) Differential Total Cells Counted 100.0 (100) Neutrophils % (Manual) 68 (37.0-80.0) Band Neutrophils % (Manual) 2 Lymphocytes % (Manual) 11 (10.0-50.0) Monocytes % (Manual) 2 (0-12) Eosinophils % (Manual) 16 (0-7) Basophils % (Manual) 0 (0.0-2.0) Metamyelocytes % (manual) 0 Myelocytes % (Manual) 1 Promyelocytes % (Manual) 0 Blast Cells % (Manual) 0 Reactive Lymphocytes 0 Platelet Estimate Adequate Poikilocytosis (manual) Slight Ovalocytes Few Uric Acid 9.4 mg/dL (3.7-9.2) Phosphorus Level 3.5 mg/dL (2.4-5.1) Thyroid Stimulating Hormone (TSH) 3.08 uIU/mL (0.55-4.78) Polychromasia Slight Anisocytosis (manual) Slight Macrocytosis Slight Total Bilirubin 1.4 mg/dL (0.2-1.0) Aspartate Amino Transferase (AST) 15 U/L (13-40) Alanine Aminotransferase (ALT) 23 U/L (7-40) Alkaline Phosphatase 51 U/L (46-116) Total Protein 6.2 g/dL (5.7-8.2) Albumin 3.9 g/dL (3.2-4.8) B-Type Natriuretic Peptide 1481.63 pg/mL (0-100) Test 08/25/24 19:16 08/25/24 16:15 08/25/24 15:00 Troponin I High Sensitivity 16 ng/L (</=54) Large Platelets Few Prothrombin Time 11.6 sec (9.3-11.8) Prothrombin Time INR 1.11 (0.9-1.15) Activated Partial Thromboplast Time 26.4 SEC (24.5-34.5) Lactic Acid Level 1.4 mmol/L (0.4-2.0) Urine Color Yellow (Yellow) Urine Clarity Clear (Clear) Urine pH 6.0 (5.0-9.0) Urine Specific [place] 1.016 (1.001-1.035) Urine Protein 1+ (Negative) Urine Ketones Negative (Negative) Urine Blood Negative /uL (Negative) Urine Nitrite Negative (Negative) Urine Bilirubin Negative (Negative) Urine Urobilinogen Normal mg/dL (Negative) Urine Leukocyte Esterase 2+ /uL (Negative) Urine RBC 4 /hpf (0 - 3) Urine Microscopic WBC 105 /HPF (0-3) Urine Squamous Epithelial Cells Few /hpf (<5) Urine Bacteria None seen /hpf (None Seen) Urine Glucose Normal mg/dL (Normal) Other Laboratory Tests 08/28/24 06:19 Brief Hx & Hospital Course: 74-year-old male with a known history of BPH, nonfunctioning left kidney, CKD, severe anemia status post 3 units of packed RBC or recent admission, septic shock secondary to UTI was treated presented to the hospital with generalized weakness shortness of breath abdominal bloating and dysuria found to have generalized weakness and symptomatic anemia. Patient also has a acute kidney injury with underlying CKD. GI has been as nephrology was consulted. Patient does have nonfunctioning left-sided kidney. Patient is requesting to go home as he can follow up as an outpatient with the GI. Patient stated that he is feeling much better. Patient has UTI was treated. Patient being discharged under stable condition with close follow up as an outpatient with PCP, Nephrology, GI. Condition at Discharge: Stable Final Diagnosis/Problems List 74-year-old male with a known history of BPH, nonfunctioning left kidney, CKD, severe anemia status post 3 units of packed RBC or recent admission, septic shock secondary to UTI was treated presented to the hospital with generalized weakness shortness of breath abdominal bloating and dysuria found to have 1. Generalized weakness 2. 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 BPH 5. Hypertension 6. Nonfunctioning left-sided kidn Discharge Disposition: Home SNF Discharge Will this Physician continue t: No Discharge Instruct/Medications Diet: Cardiac 2g Na,low cholest Activity: No Restrictions, As Tolerated Follow Up/Referral: Follow up with the PCP in one week Follow up with Dr. Lindsey Ortega GI in one week Medications: Resume home medications Discharge Statement: "Patient was advised to return to the ER or call 911 if any headaches, dizziness, shortness of breath, chest pain, abdominal pain, bleeding, fevers, or worsening of medical condition. Patient was counseled about treatment plan, medications, possible side effects, patientverbalized understanding. All questions were answered to the best of my ability. This discharge took greater then 30 minutes in planning, reviewing documentation, counseling the patient, and discussing with other team members." ASSESSMENT ASSESSMENT Assessment 74-year-old male with a known history of BPH, nonfunctioning left kidney, CKD, severe anemia status post 3 units of packed RBC or recent admission, septic shock secondary to UTI was treated presented to the hospital with generalized weakness shortness of breath abdominal bloating and dysuria found to have 1. Generalized weakness 2. 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 BPH 5. Hypertension 6. Nonfunctioning left-sided kidn Date of Service: Aug 28, 2024 Billing Provider: MELONIE PARIS MD Common Visit Codes: [id number] DISCH DAY >30min MELONIE PARIS MD Aug 28, 2024 16:54
--- NOTE | 2024-08-28 19:03 | DVHINCON2 ---
Date of service: Aug 28, [address] Puri Reason for Consultation Abdominal pain History of Present Illness The patient is a 74-year-old male with past medical history of CKD, BPH, kidney stones, and anemia who presented to [facility] ED with complaint of generalized weakness. Patient had just been discharged on 08/24/2024 and returned back to the ER on 09/14 because of weakness. no active GI bleeding was reported.Patient reports she has been experiencing abdominal bloating, diffuse abdominal pain, shortness of breaths, chest discomfort, dysuria, getting worse that prompted this visit. Patient at that time had refused any GI workup for his anemia. Patient was diagnosed with a staghorn calculus in the left kidney with atrophic of the left kidney and it was nonfunctional. Patient seen at bedside today sitting up at the edge of the bed in no acute distress. Patient states his abdominal pain has subsided. Patient still does not want to do any GI workup at this time Past Medical History Past Medical History Anemia, BPH, CKD, Nonfunctioning left kidney, Kidney stone Past Surgical History Past Surgical History Denies all surgeries Family History: Patient reports no known family medical history. Allergies: Coded Allergies: NO KNOWN ALLERGIES (Unverified , 08/20/24) Home Meds Active Scripts Ferrous Sulfate (Iron) 325 Mg Tab, 325 MG PO BID, #60 TAB Prov:MAGDIEL DAO MD 08/24/24 Sucralfate (CARAFATE) 1 Gm Tab, 1 GM OR QID, #120 TAB Prov:MAGDIEL DAO MD 08/24/24 Pantoprazole Sodium Sesquihydr (Pantoprazole Sodium) 40 Mg Tab, 40 MG PO BID, #60 TAB Prov:MAGDIEL DAO MD 08/24/24 Levofloxacin Hemihydrate (LEVAQUIN 500 MG) 500 Mg Tab, 1 TAB PO DAILY, #7 TAB Prov:MAGDIEL DAO MD 08/24/24 Reported Medications Fluticasone Propionate (Nasal) (Allergy Relief) 50 Mcg/Act Spr, 50 MCG NA, SPRAY 08/26/24 Amlodipine Besylate (Amlodipine Besylate) 5 Mg Tab, 10 MG PO DAILY for 30 Days, MG 08/25/24 Metoprolol Tartrate (Metoprolol Tartrate) 50 Mg Tab, 50 MG PO for 30 Days, MG 08/25/24 Discontinued Reported Medications Amlodipine Besylate (NORVASC TABLET) 5 Mg Tb, 1 TAB PO DAILY, #30 TAB 5 Refills 08/20/24 Metoprolol Tartrate (Metoprolol Tartrate) 25 Mg Tab, 25 MG PO, TAB 08/20/24 Current Medications Current Medications Medications (Trade) Dose Ordered Sig/Gaston Route PRN Reason Start Time Stop Time Status Last Admin Bumetanide (Bumex Tablet) 2 mg DAILY PO 08/28/24 10:00 Vital Signs Vital Signs Date Time Temp Pulse Resp B/P (MAP) Pulse Ox O2 Delivery O2 Flow Rate FiO2 08/28/24 17:00 98.0 68 16 146/80 (102) 97 98.0 08/28/24 07:30 Room Air* 0 21 Physical Exam Examination: GENERAL:Normal, CVS:Normal, ABDOMEN:Normal, SKIN:Normal Labs/Diagnostic Data Labs Test 08/28/24 06:19 08/27/24 06:05 08/26/24 06:14 08/25/24 20:46 Range/Units White Blood Count 7.6 4.4-10.8 10^3/uL Red Blood Count 3.30 L 4.5-5.90 10^6/uL Hemoglobin 9.5 L 13.5-17.5 g/dL Hematocrit 28.8 L 41.0-53.0 % Mean Corpuscular Volume 87.3 80.0-100.0 fL Mean Corpuscular Hemoglobin 28.7 28.0-32.0 pg Mean Corpuscular Hemoglobin Concent 32.9 32.0-36.0 g/dL Red Cell Distribution Width 18.0 H 11.8-14.3 % Platelet Count 437 140-450 10^3/uL Mean Platelet Volume 7.8 6.9-10.8 fL Neutrophils (%) (Auto) 61.4 37.0-80.0 % Lymphocytes (%) (Auto) 15.6 10.0-50.0 % Monocytes (%) (Auto) 7.7 0.0-12.0 % Eosinophils (%) (Auto) 13.5 H 0.0-7.0 % Basophils (%) (Auto) 1.8 0.0-2.0 % Neutrophils # (Auto) 4.7 1.6-8.6 10 ^3/uL Lymphocytes # (Auto) 1.2 0.4-5.4 10 ^3/uL Monocytes # (Auto) 0.6 0-1.3 10 ^3/uL Eosinophils # (Auto) 1.0 H 0-0.8 10 ^3/uL Basophils # (Auto) 0.1 0-0.2 10 ^3/uL Nucleated Red Blood Cells 0.0 % Sodium Level 143 136-145 mmol/L Potassium Level 3.8 3.5-5.1 mmol/L Chloride Level 107 98-107 mmol/L Carbon Dioxide Level 27 20-31 mmol/L Anion Gap 9 5-15 Blood Urea Nitrogen 14 9-23 mg/dL Creatinine 1.74 H 0.700-1.30 mg/dL Glomerular Filtration Rate Calc 41 >90 mL/min BUN/Creatinine Ratio 8.0 L 10.0-20.0 Serum Glucose 90 74-106 mg/dL Calcium Level 9.3 8.7-10.4 mg/dL Iron Level 25 L 65-175 ug/dL Total Iron Binding Capacity 354 250-425 ug/dL Percent Iron Saturation 7.1 L 20-55 % Ferritin 19.6 L 22-322 ng/mL Differential Total Cells Counted 100.0 100 Neutrophils % (Manual) 68 37.0-80.0 Band Neutrophils % (Manual) 2 Lymphocytes % (Manual) 11 10.0-50.0 Monocytes % (Manual) 2 0-12 Eosinophils % (Manual) 16 H 0-7 Basophils % (Manual) 0 0.0-2.0 Metamyelocytes % (manual) 0 Myelocytes % (Manual) 1 Promyelocytes % (Manual) 0 Blast Cells % (Manual) 0 Reactive Lymphocytes 0 Platelet Estimate Adequate Poikilocytosis (manual) Slight Ovalocytes Few Uric Acid 9.4 H 3.7-9.2 mg/dL Phosphorus Level 3.5 2.4-5.1 mg/dL Thyroid Stimulating Hormone (TSH) 3.08 0.55-4.78 uIU/mL Polychromasia Slight Anisocytosis (manual) Slight Macrocytosis Slight Total Bilirubin 1.4 H 0.2-1.0 mg/dL Aspartate Amino Transferase (AST) 15 13-40 U/L Alanine Aminotransferase (ALT) 23 7-40 U/L Alkaline Phosphatase 51 46-116 U/L Total Protein 6.2 5.7-8.2 g/dL Albumin 3.9 3.2-4.8 g/dL B-Type Natriuretic Peptide 1481.63 0-100 pg/mL Test 08/25/24 19:16 08/25/24 16:15 08/25/24 15:00 Range/Units Troponin I High Sensitivity 16 </=54 ng/L Large Platelets Few Prothrombin Time 11.6 9.3-11.8 sec Prothrombin Time INR 1.11 0.9-1.15 Activated Partial Thromboplast Time 26.4 24.5-34.5 SEC Lactic Acid Level 1.4 0.4-2.0 mmol/L Urine Color Yellow Yellow Urine Clarity Clear Clear Urine pH 6.0 5.0-9.0 Urine Specific [place] 1.016 1.001-1.035 Urine Protein 1+ H Negative Urine Ketones Negative Negative Urine Blood Negative Negative /uL Urine Nitrite Negative Negative Urine Bilirubin Negative Negative Urine Urobilinogen Normal Negative mg/dL Urine Leukocyte Esterase 2+ Negative /uL Urine RBC 4 0 - 3 /hpf Urine Microscopic WBC 105 H 0-3 /HPF Urine Squamous Epithelial Cells Few <5 /hpf Urine Bacteria None seen None Seen /hpf Urine Glucose Normal Normal mg/dL Microbiology Date/Time Source Procedure Growth Status 08/25/24 23:40 Nose MRSA Screen - Final Complete 08/25/24 16:15 Blood Blood Culture - Preliminary NO GROWTH AFTER 72 HOURS OF INCUBATION. Resulted 08/25/24 15:00 Voided Urine Urine Culture - Final Complete CT SCAN ABD PELVIS IMPRESSION: 1. Atrophic left kidney with a left renal cyst and a 2.2 cm left renal calculus. 2. No findings of bowel obstruction. Stool throughout the colon. 3. No cholelithiasis . 4. Atrophic left kidney with 4.6 cm left renal cyst and a 2.2 cm renal calculus. Problems(with codes): (1) Urinary tract infection, site not specified (2) CHF (congestive heart failure) (3) Sepsis due to gram-negative UTI (4) Positive occult stool blood test Plan/Recommendation Assessment and plan I again discuss the possibility of an endoscopy and colonoscopy with this patient He is refusing any GI workup at this time ; advance diet as tolerated Patient states he is changing his insurance from the [place] into the [facility] and will be choosing doctor on has his primary Patient was advised to follow up in my office as an outpatient in 4-6 weeks to discuss elective panendoscopy if he is willing Once again thank you for allowing me to participate in the care of this patient Discharge planning is in progress as per the hospitalist Plan discussed with: Patient CLARENCE COX MD Aug 28, 2024 19:03
== END 2024-08-28 20:15 | disposition home or self-care (01) | DRG 683 ==
LOC: ER 13:40 → OVERFLOW 22:00 → TELE-WESTW 22:05
PROVIDERS: ADMIT Internal Medicine; ATTEND Internal Medicine
DX: N17.9 Acute kidney failure, unspecified (principal); I13.0 Hypertensive heart and chronic kidney disease with heart failure and stage 1 through stage 4 chronic kidney disease, or unspecified chronic kidney disease; N39.0 Urinary tract infection, site not specified; I50.9 Heart failure, unspecified; N18.9 Chronic kidney disease, unspecified; N40.0 Benign prostatic hyperplasia without lower urinary tract symptoms; N20.0 Calculus of kidney; N28.1 Cyst of kidney, acquired; N26.1 Atrophy of kidney (terminal); D50.9 Iron deficiency anemia, unspecified; Z79.899 Other long term (current) drug therapy; Z87.442 Personal history of urinary calculi; Z79.2 Long term (current) use of antibiotics; Z59.71 Insufficient health insurance coverage
CPT/HCPCS: 36415; 71046; 74176; 76775; 80048; 80053; 81001; 82728; 83540; 83550; 83605; 83880; 84100; 84443; 84484; 84550; 85007; 85025; 85027; 85610; 85730; 86850; 86900; 86901; 87040; 87081; 87086; 93005; 96365; G0378